=== PATIENT | male | born 1945 | race Caucasian/White ===

== ENCOUNTER 2017-07-19 10:03 | Observation (INO) | payer MEDICARE ==
[2017-07-19 11:10] LABS: Prothrombin Time 24.4 SEC (12.0-14.7)
[2017-07-19 11:11] LABS: PTT 56.3 SEC (22.9-36.1)
[2017-07-19 11:13] LABS: #Eosinphils 0.1 thou/uL (0.0-0.7); #Lymphocytes 0.9 thou/uL (1.20-3.40); #Monocytes 1.3 thou/uL (0.11-0.59); #Neutrophils 12.5 thou/uL (1.40-6.50); %Basophils 0.2 % (0.0-1.0); %Eosinophils 0.6 % (0.0-10.0); %Lymphocytes 6.1 % (21.0-51.0); %Monocytes 8.9 % (0.0-10.0); Hematocrit 27.6 % (42.0-52.0); Mean Platelet Volume 6.8 fL (7.4-10.4); Red Blood Cell (RBC) Count 2.84 mill/uL (4.70-6.10); White Blood Cell (WBC) Count 14.9 thou/uL (4.8-10.8)
[2017-07-19 11:22] LABS: Polychromasia MODERATE = 3-4 cells (100X) (0-2/hpf)
[2017-07-19 11:26] LABS: ALT (SGPT) 11 U/L (8-55); AST (SGOT) 12 U/L (5-34); Alkaline Phosphatase 45 U/L (40-150); Anion Gap 10 mmol/L (10-20); BUN (Urea Nitrogen) 17 mg/dL (8.4-25.7); Bilirubin, Total 0.7 mg/dL (0.2-1.2); Calc. Creatinine Clearance 0 mL/min (70-130); Carbon Dioxide 27 mmol/L (23-31); Chloride 101 mmol/L (98-107); Estimated GFR-MDRD 70; Globulin 2.7 g/dL (2.4-3.5); Iron 48 ug/dL (65-175); Protein, Total 6.4 g/dL (5.8-8.1)
[2017-07-19 12:51] LABS: Bilirubin Negative (Negative); Blood, Urine Negative (Negative); Glucose, Urine (Dipstick) Negative (Negative); Ketone, Urine Negative (Negative); Nitrite Negative (Negative); Protein, Urine (Dipstick) Negative (Neg-Trace); Urobilinogen 0.2 mg/dL (0.2-1.0)
[2017-07-19] MEDS ORDERED: Acetaminophen 500 MG TAB ONE (14:15)
--- NOTE | 2017-07-19 15:13 | RAD ---
RADIOGRAPH CHEST 1 VIEW: Date: 07-19-17 Time: 2:23 p.m. HISTORY: 71-year-old male with fever. COMPARISON: 02-12-14 FINDINGS: Again noted is the extensive pulmonary scarring at the right mid and lower lung zones, and chronic b lunting of the right lateral costophrenic angle, consistent with pleural thickening. The left subcla vian dual-lead pacemaker is again noted. The generator has been exchanged for a different type. Ster notomy wires are again noted. There is mild increased transverse diameter of the heart, apparently s lightly greater than on the previous study, but that could be due to positional differences. Promine nt interstitial markings in the left lower lung zone appears chronic. This is slightly greater than on the previous study. No pulmonary edema or pneumothorax. No consolidation. IMPRESSION: 1. Right sided pulmonary and pleural scarring. 2. No definite acute pulmonary findings. 3. Pacemaker. PHILIP POS: QUYEN
--- NOTE | 2017-07-19 15:15 | HP ---
PRIMARY CARE PHYSICIAN: Lisa Riley M.D. REASON FOR ADMISSION: Symptomatic anemia and fever. HISTORY OF PRESENT ILLNESS: A 71-year-old male who has mechanical aortic valve and chronic anticoagulation therapy with warfarin, who came to emergency room with complaint of weakness and dizziness. The patient reports that about a week ago from today, he was having black tarry stool everyday. He was having black tarry stool for about 4 days. This happened to him in the past as well and that is why he stopped taking warfarin for 3 days and his bleeding stopped. When his bleeding stopped and stool becoming normal color, at that time he started taking warfarin again. He was on warfarin for last 2-3 days. He was not having any ongoing black tarry stool, but he was feeling weak, tired, exhausted and that is why he came to emergency room for evaluation. Patient denies any orthopnea, PND. He does report some increased pitting edema in both lower extremities. He does report fatigue and palpitations on exertion. Patient's reports that day before night, he was having fever and temperature was 100.6 and today in the emergency room is also temperature 100.6. He was feeling warm for last 2-3 days. He denies any UTI symptoms. He does report cough with white sputum, but he denies any hemoptysis. He denies any constipation, diarrhea. He denies any abdominal pain. He denies any sick exposure or any recent vaccinations. REVIEW OF SYSTEMS: The following complete review of systems was negative, unless otherwise mentioned in the HPI or below: Constitutional: Weight loss or gain, ability to conduct usual activities. Skin: Rash, itching. Eyes: Double vision, pain. ENT/Mouth: Nose bleeding, neck stiffness, pain, tenderness. Cardiovascular: Palpitations, dyspnea on exertion, orthopnea. Respiratory: Shortness of breath, wheezing, cough, hemoptysis, fever or night sweats. Gastrointestinal: Poor appetite, abdominal pain, heartburn, nausea, vomiting, constipation, or diarrhea. Genitourinary: Urgency, frequency, dysuria, nocturia. Musculoskeletal: Pain, swelling. Neurologic/Psychiatric: Anxiety, depression. Allergy/Immunologic: Skin rash, bleeding tendency. Please see my HPI for pertinent positive and negative. All other review of systems reviewed and negative except as mentioned in the HPI. PAST MEDICAL HISTORY: History of aortic valve replacement; chronic anticoagulation with warfarin; history of GI bleed in the past that required several times endoscopy and colonoscopy which was unremarkable; hypertension; history of aortic stenosis, required aortic valve replacement in the past; coronary artery disease; and gastroesophageal reflux disease. PAST SURGICAL HISTORY: Mechanical aortic valve replacement by Dr. Rosenbaum, pacemaker, appendicectomy, tonsillectomy and several times upper and lower endoscopy. PAST PSYCHIATRIC HISTORY: Reviewed and negative. SOCIAL HISTORY: Patient is and lives at home with his . He is a former smoker. He quit smoking few years ago. He drinks alcohol socially. He drinks 1 beer every afternoon. He denies any other illicit drug abuse. FAMILY HISTORY: No strong family history of premature coronary artery disease, stroke or cancer. ALLERGIES: No known drug allergy. EMERGENCY ROOM COURSE: Patient is receiving 1 unit of PRBC as ordered by ER physician. CURRENT HOME MEDICATIONS: Coenzyme Q10 200 mg p.o. daily, ferrous sulfate 325 mg p.o. daily, metoprolol tartrate 12.5 mg twice daily, fish oil daily, nifedipine ER 30 mg p.o. daily, ramipril 10 mg twice daily, aspirin 81 mg p.o. daily, Tylenol #3 one or two tablets q.12 hourly p.r.n. PHYSICAL EXAMINATION: VITAL SIGNS: Currently, blood pressure 158/74, pulse 63, respiratory rate 20, temperature 98.1 and subsequently temperature 100.6, respiratory rate 18, saturation 98% on room air, weight 90.7 kilograms. GENERAL: Patient is currently alert, awake, appears weak. No obvious acute distress. HEAD: Normocephalic, atraumatic. EYES: Pupils round, reactive to light. Extraocular muscle intact. ENT: Oropharynx within normal limits. Pale mucous membranes. No oral lesions. No pharyngeal erythema, no exudates. NECK: Supple. Range of motion is normal. No meningeal signs of irritation. LUNGS: Clear to auscultation. Few coarse breath sounds noted. CARDIAC: S1, S2 regular. Mechanical heart sounds heard. ABDOMEN: Soft, bowel sounds present, nontender, and nondistended. No organomegaly, no mass, no suprapubic tenderness. BACK: Examination unremarkable. No CVA tenderness. EXTREMITIES: Upper extremity passive movements of all joints are normal. Lower extremity, bilateral lower extremity edema. NEUROLOGIC: Nonfocal examination. The patient moves all 4 limbs. Plantar bilateral flexor. PSYCHIATRIC: Normal affect. SIGNIFICANT LABORATORY DATA: 1. Urinalysis normal. BMP: Sodium 134, potassium 4.0, chloride 101, carbon dioxide 27, anion gap 10, BUN 17, creatinine 1.05, glucose 148, calcium 9.0. 2. LFT: AST 12, ALT 11, alkaline phosphatase 45, albumin 3.7. 3. INR 2.1. 4. CBC: WBC 14.9, hemoglobin 8.8, platelet 290. Stool occult blood negative. ASSESSMENT AND PLAN/IMPRESSION: 1. Symptomatic anemia. This patient's hemoglobin is currently 8.8. His previous hemoglobin was 13.4. This patient had melena about 4 days ago. At this point, he does not have any active bleeding and he does not have any hematochezia or melena. Currently, he is having symptoms of anemia because he lost blood 4 days ago with melena. The patient is still taking warfarin and he does not have any Hemoccult blood positive. This patient also had several upper and lower endoscopies by Dr. Gibson in the past and now as per Dr. Gibson , patient is planned for capsular endoscopy to find the source of bleeding. As this patient does not have any ongoing bleeding, no need of GI consultation and family member and patient is okay with that. They will make appointment with Dr. Gibson after discharge for capsule endoscopy to find out the source of bleeding. At this point, patient is receiving 1 unit of blood transfusion in the emergency room. We will repeat CBC tomorrow and we will continue with ferrous sulfate 325 mg p.o. b.i.d. The patient will benefit from outpatient referral to [facility] for periodic blood transfusion or iron infusion if needed. 2. Fever. Patient has leukocytosis, fever of 100.6 today and yesterday. The patient does not have any urinary tract infection symptoms. His urinalysis is normal. I will order chest x-ray to see any infiltration, I am suspecting viral etiology. We will repeat CBC tomorrow. 3. History of aortic valve replacement on chronic anticoagulation therapy with warfarin because patient has mechanical mitral valve and now patient does not have any ongoing bleeding. We will continue warfarin therapy. Currently, INR is therapeutic. 4. Hypertension. We will continue Procardia-XL 30 mg p.o. daily and metoprolol tartrate 12.5 mg twice daily and ramipril 10 mg p.o. b.i.d. 5. Bilateral lower extremity edema. I will check BNP and we will give him Lasix 40 mg IV b.i.d. 6. Deep venous thrombosis prophylaxis not needed because we are expecting discharge in 24 hours. The patient is already on warfarin therapy. 7. Gastrointestinal prophylaxis, Protonix 40 mg p.o. b.i.d. 8. Code status: The patient is FULL CODE. The patient's is surrogate decision maker. Disposition plan based on clinical course likely 24-48 hours. Plan of care discussed with the patient and family member at bedside. RAGHAV
[2017-07-19] MEDS ORDERED: Ondansetron ODT 4 MG TAB PO PRN (16:52)
[2017-07-19] MEDS ORDERED: diphenhydrAMINE HCl 25 MG CAP PO PRN (16:52)
[2017-07-19] MEDS ORDERED: Senokot 8.6 MG TAB PO PRN (16:52)
[2017-07-19] MEDS ORDERED: Loperamide HCl 2 MG CAP PO PRN (16:52)
[2017-07-19] MEDS ORDERED: Ondansetron HCl/PF 4 MG/2 ML Vial IVP PRN (16:52)
[2017-07-19] MEDS ORDERED: Zolpidem Tartrate 5 MG TAB PO PRN (16:52)
[2017-07-19] MEDS ORDERED: Sodium Chloride 0.65% Nasal 44 ML BOT EA NARE PRN (16:52)
[2017-07-19] MEDS ORDERED: HYDROcodone/Acetaminophen 5/325 mg Tablet PO PRN (16:52)
[2017-07-19] MEDS ORDERED: Milk Of Magnesia 30 ML UDCUP PO PRN (16:52)
[2017-07-19] MEDS ORDERED: Artificial Tears 18 DROP/0.9 ML EA EYE PRN (16:52)
[2017-07-19] MEDS ORDERED: Diabetic Tussin 200 MG/10 ML UDCUP PO PRN (16:52)
[2017-07-19] MEDS ORDERED: Chloraseptic Spray 180 ml Bottle PO PRN (16:52)
[2017-07-19] MEDS ORDERED: Nitroglycerin 0.4 MG TAB (25 Tab Bottle) SL PRN (16:52)
[2017-07-19] MEDS ORDERED: Eucerin (Mineral Oil/Petrolatum,White) 30 gm Jar TOP PRN (16:52)
[2017-07-19] MEDS ORDERED: Mag-Al 1200 mg/1200 mg/30 ML UDCUP PO PRN (16:52)
[2017-07-19] MEDS ORDERED: Warfarin Sodium 2.5 MG TAB PO SCH (17:00)
[2017-07-19 17:02] VITALS: BMI 32.1
[2017-07-19] MEDS ORDERED: Furosemide 40 MG/4 ML VIAL SLOW IVP SCH (17:45)
[2017-07-19] MEDS: Ferrous Sulfate 325 MG TAB PO SCH (18:01)
[2017-07-19] MEDS ORDERED: Acetaminophen 325 MG TAB PO PRN (18:19)
[2017-07-19] MEDS ORDERED: FLU VACC TS2017-18 (>65YR) 0.5 ML SYRINGE IM ONE (18:30)
[2017-07-19] MEDS: Ramipril 5 MG CAP PO SCH (21:47)
[2017-07-19] MEDS: Metoprolol Tartrate 25 MG TAB PO SCH (21:48)
[2017-07-20 05:52] LABS: #Basophils 0.1 thou/uL (0.0-0.2); #Eosinphils 0.3 thou/uL (0.0-0.7); #Lymphocytes 1.8 thou/uL (1.20-3.40); #Monocytes 1.6 thou/uL (0.11-0.59); %Basophils 0.6 % (0.0-1.0); %Eosinophils 1.9 % (0.0-10.0); %Lymphocytes 12.1 % (21.0-51.0); %Monocytes 10.7 % (0.0-10.0); Hematocrit 30.6 % (42.0-52.0); Mean Platelet Volume 6.8 fL (7.4-10.4); Red Blood Cell (RBC) Count 3.18 mill/uL (4.70-6.10); White Blood Cell (WBC) Count 14.8 thou/uL (4.8-10.8)
[2017-07-20 05:53] LABS: Prothrombin Time 22.3 SEC (12.0-14.7)
[2017-07-20] MEDS ORDERED: Furosemide 40 MG/4 ML VIAL SLOW IVP SCH (06:00)
[2017-07-20 06:03] LABS: Anion Gap 11 mmol/L (10-20); BUN (Urea Nitrogen) 14 mg/dL (8.4-25.7); Calc. Creatinine Clearance 90 mL/min (70-130); Calcium 8.7 mg/dL (7.8-10.44); Carbon Dioxide 27 mmol/L (23-31); Chloride 98 mmol/L (98-107); Estimated GFR-MDRD 73
[2017-07-20 08:14] VITALS: BP 126/76; TEMP 98.5
[2017-07-20] MEDS: Ferrous Sulfate 325 MG TAB PO SCH (08:14)
[2017-07-20] MEDS: Metoprolol Tartrate 25 MG TAB PO SCH (08:16)
[2017-07-20] MEDS: Ramipril 5 MG CAP PO SCH (08:16)
[2017-07-20] MEDS ORDERED: Fish Oil 1,000 MG CAP PO SCH (09:00)
[2017-07-20] MEDS ORDERED: NIFEdipine XL 30 MG TAB PO SCH (09:00)
[2017-07-20] MEDS ORDERED: Ubidecarenone 50 MG CAP PO SCH (09:00)
--- NOTE | 2017-07-20 10:36 | DIS ---
PRIMARY CARE PHYSICIAN: Dr. Riley DATE OF ADMISSION: 07/19/2017 DATE OF DISCHARGE: 07/20/2017 DISCHARGE DISPOSITION: Home. PRIMARY DISCHARGE DIAGNOSES: 1. Symptomatic anemia, status post 1 unit transfusion. 2. Leukocytosis and fever, unclear etiology. SECONDARY DISCHARGE DIAGNOSES: History of mechanical aortic valve replacement, chronic anticoagulat ion, hypertension, obesity. PRIMARY PROCEDURE/OPERATION: None. RADIOLOGICAL INVESTIGATION: Chest x-ray showed right basilar pleural scar, no acute process. SIGNIFICANT LABORATORY DATA: WBC 14.8, hemoglobin 9.7, platelets 314. INR 1.9, sodium 132, potassi um 4.2, BUN 14, creatinine 1.01, calcium 8.7. LFTs normal. BNP 598.3. Urinalysis normal. FOBT ne gative. DISCHARGE MEDICATIONS: The patient will resume home dose of warfarin 5 mg p.o. daily, aspirin 81 mg p.o. daily. Aspirin 81 mg p.o. daily, ferrous sulfate 325 mg p.o. b.i.d., fish oil 1000 mg p.o. da [place], Toprol XL 12.5 mg p.o. b.i.d., Procardia-XL 30 mg p.o. daily, Protonix 40 mg p.o. b.i.d., Ramip ril 10 mg p.o. b.i.d., multivitamin 1 tablet p.o. b.i.d., Omnicef 300 mg p.o. twice daily for 5 days . CONTRAINDICATIONS: None. CODE STATUS: Full code. INPATIENT CONSULTANTS: None. ALLERGIES: SULFA DRUGS. DISCHARGE PLAN: Post hospital, the patient is advised to follow up with Dr. Gibson and primary care physician. HOSPITAL COURSE: A 71-year-old male who had about 4 or 5 days ago melanotic stool. He had that epi sode for 2-3 days and that is why he stopped warfarin by himself and his melanotic stool improved a nd he resumed his warfarin. He was not having any further melanotic stool, but he was having symptoms of anemia with fatigue, we akness, dyspnea on exertion and that is why he came to the emergency room, his hemoglobin on admissi on 8.8, which was dropped from previous. We gave him 1 unit of blood transfusion and he had appropr iate increase in his hemoglobin 9.7. His stool for guaiac was negative. He already had several upp er and lower endoscopy in the past and he is only waiting for capsular endoscopy to complete his wor kup and this time we did not consult any line repairer tower because there was no ongoing bleeding an d we advised him to make appointment with a line repairer tower for capsule endoscopy. Another problem he was having his leukocytosis and fever a couple of times at home. We did a chest x-ray which showed pleural scarring without any acute process. Urinalysis was normal. There was no obvious clear cut source of infection, we presumably started Omnicef on discharge for 5 more days. The patient will continue his warfarin therapy. He was not having wheezing, but he was on room air . He reported that he was following customer service trainer and they did PFTs, nothing identified etiology fo und on him. We checked his BNP, he had some edema in his lower extremity and we started Lasix on di scharge as well. PHYSICAL EXAMINATION: The patient seen and examined at bedside today. VITAL SIGNS: Currently temperature 98.5, pulse 69, respiratory rate 16, saturation 96%, blood press ure 126/76. GENERAL: The patient is alert, awake, no acute distress. HEAD: Normocephalic, atraumatic. LUNGS: Clear. A few end-expiratory wheezing heard. CARDIAC: S1, S2 regular without any significant murmur, no prosthetic click heard. ABDOMEN: Soft and benign. EXTREMITIES: No edema. NEUROLOGIC: Nonfocal examination. The patient is stable for discharge today.
[2017-07-20] MEDS ORDERED: Warfarin Sodium 5 MG TAB PO SCH (17:00)
== END 2017-07-20 11:08 | disposition home or self-care (01) ==
LOC: ERS 10:03 → 2SW 13:26
PROVIDERS: ADMIT Internal Medicine; ATTEND Internal Medicine
DX: D64.9 Anemia, unspecified (principal); D72.829 Elevated white blood cell count, unspecified; R50.9 Fever, unspecified; I10 Essential (primary) hypertension; E66.9 Obesity, unspecified; I25.10 Atherosclerotic heart disease of native coronary artery without angina pectoris; K21.9 Gastro-esophageal reflux disease without esophagitis; R60.0 Localized edema; Z68.31 Body mass index [BMI] 31.0-31.9, adult; Z79.01 Long term (current) use of anticoagulants; Z79.82 Long term (current) use of aspirin; Z79.899 Other long term (current) drug therapy; Z95.2 Presence of prosthetic heart valve; Z90.49 Acquired absence of other specified parts of digestive tract; Z90.89 Acquired absence of other organs; Z98.890 Other specified postprocedural states; Z88.2 Allergy status to sulfonamides; Z87.891 Personal history of nicotine dependence
CPT/HCPCS: 36430; 71010; 80048; 80053; 81003; 82274; 83540; 83880; 85025 ×2; 85610 ×2; 85730; 86850; 86900; 86901; 86920; 94760; 96374; 96376; 99285; G0008; G0378; P9016; Q2036; 36415; 90471; 90682; J1940

== ENCOUNTER 2018-04-28 07:05 | Outpatient (CLI) | payer MEDICARE, OTHER ==
[2018-04-28 08:31] LABS: Albumin 4.2 g/dL (3.4-4.8); Anion Gap 11 mmol/L (10-20); BUN (Urea Nitrogen) 11 mg/dL (8.4-25.7); BUN/Creatinine Ratio 11.83; Calc. Creatinine Clearance 0 mL/min (70-130); Calcium 9.6 mg/dL (7.8-10.44); Carbon Dioxide 25 mmol/L (23-31); Chloride 104 mmol/L (98-107); Estimated GFR-MDRD 80; Glucose 111 mg/dL (80-115); Phosphorus 2.7 mg/dL (2.3-4.7); Potassium 4.3 mmol/L (3.5-5.1); Sodium 136 mmol/L (136-145)
--- NOTE | 2018-04-28 11:06 | CT ---
CT ABDOMEN AND PELVIS WITH AND WITHOUT CONTRAST CT ENTEROGRAPHY: Date: 04/28/18 CLINICAL HISTORY: Anemia due to blood loss. FINDINGS: There are lipid-rich adrenal adenomas present on the right. There is dystrophic calcification of the right adrenal glands, as well. Several cysts are seen within each kidney. There are small hypodensiti es of the hepatic parenchyma, too small to further characterize. No significant pathology of the panc reas or spleen. Colonic diverticula are present. The small bowel is unremarkable, without evidence of abnormal dilata tion, or inflammation. There is no evidence of ascites or free air. Scattered vascular calcification is present. There is no adenopathy. Patchy opacification at the lung bases, right greater than left, indicates atelectasis. Pleural based calcification is present. There is no acute osseous abnormality. IMPRESSION: 1. No acute small bowel pathology. 2. Colonic diverticulosis. 3. Additional details are described above. POS: QUYEN
[2018-04-28] MEDS ORDERED: Iopamidol 370 76% 100 ML VIAL ONE (13:28)
== END 2018-04-28 07:06 | disposition home or self-care (01) ==
LOC: CT 07:05
PROVIDERS: ATTEND Internal Medicine Gastroenterology
DX: D50.0 Iron deficiency anemia secondary to blood loss (chronic) (principal); K57.30 Diverticulosis of large intestine without perforation or abscess without bleeding; D35.01 Benign neoplasm of right adrenal gland; E27.49 Other adrenocortical insufficiency; N28.1 Cyst of kidney, acquired; J98.11 Atelectasis; R91.8 Other nonspecific abnormal finding of lung field; Z79.01 Long term (current) use of anticoagulants; Z95.2 Presence of prosthetic heart valve
CPT/HCPCS: 74178; 80069

== ENCOUNTER 2018-05-01 08:20 | Day surgery (SDC) | payer MEDICARE, OTHER ==
[2018-04-28 14:07] VITALS: BMI 197.0
[2018-05-01 09:09] LABS: Hemoglobin 12.3 g/dL (14.0-18.0)
[2018-05-01 09:13] LABS: INR-International Normal Ratio 3.1; Prothrombin Time 31.8 SEC (12.0-14.7)
[2018-05-01] MEDS ORDERED: Lidocaine 1% PF 5 ML VIAL ONE (11:10)
[2018-05-01] MEDS ORDERED: PROPOFOL 200 MG/20 ML VIAL ONE (11:10)
--- NOTE | 2018-05-01 13:47 | OP ---
DATE OF PROCEDURE: 05/01/2018 SURGEON: Moe Gibson M.D. PREOPERATIVE DIAGNOSES: 1. Iron deficiency anemia. 2. 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 3. Chronic Coumadin use for aortic valve replacement. 4. Capsule endoscopy 2 weeks ago which revealed active bleeding in the small bowel of unclear etiolo gy. A CT enterography showed no evidence of masses or small bowel lesions. POSTOPERATIVE DIAGNOSES: 1. EGD and enteroscopy to the proximal jejunum was normal with no bleeding sites identified. No AVM s were seen. There was just yellow bile in the small intestine. The stomach on close evaluation had no AVMs or bleeding sites and the esophagus and GE junction were normal in forward and retroflexed v iews. 2. Colonoscopy revealed an area of ulceration and submucosal edema and hemorrhage at the hepatic fle xure suggestive of ischemic colitis. Biopsies were taken. After the procedure in talking with the p atient he notes that after his CT enterography he had a lot of abdominal cramping and I suspect that with the Gastrografin he probably had diarrhea with that and possibly due to obstipation from iron hodge pplementations had quite a bit of spasm in the hepatic flexure region and this was not the primary so urce of bleeding. 3. Hemoglobin is now up to 12.3, from 8 and 9. 4. INR today was 3.1. He is on his Coumadin which was not held for this procedure. RECOMMENDATIONS: 1. Resume Coumadin tomorrow. 2. Resume iron tomorrow. 3. Follow up in the office, appointment made for 05/17/2018. We will recheck hemoglobin at that myra e. If the patient has ongoing signs of blood loss will refer to [place] for a deep enteroscopy via [facility], [place] or double balloon technique. Otherwise, I have asked him to avoid all NSAIDs except for the baby aspirin. It is possible he was taking some other NSAIDs and was unaware, his states they were take over the counter medicine. She is going to check those and call me with whatever that medicine was later today. PROCEDURE: EGD, enteroscopy and colonoscopy. PROCEDURE IN DETAIL: After the patient was informed of risks, benefits, possible complications of en doscopy including perforation, bleeding, reaction to medication, aspiration, indications for the proc edure, that is positive capsule endoscopy with GI bleeding and history of AVMs in the colon, he was b rought to endoscopy suite where he was sedated in a gradual fashion. Once he was comfortable, a bite block was placed in the incisural orifice. The endoscope was advanced through the esophagus, stomac h and to the second and third portion of the duodenum. The stomach and esophagus were normal, forwar d and retroflexed views in the stomach were normal. The duodenal bulb was entered and found to be no rmal. The scope was slowly advanced carefully to the small bowel and we were able to get down pretty far into the jejunum past the ligament of Treitz. No AVMs or bleeding sites were seen. Some ____ a nd some clear bubbles, no mucosal lesions were identified, no old blood was seen, it was just bilious material in the lumen. The scope was slowly removed with good visualization of the mucosa. Surpris ingly, there was very little mucosal bleeding or trauma in light of the INR being 3. The scope was r emoved. The patient was turned in the room and a rectal exam was performed. The endoscope was advanced throu gh the anal canal to the colon to the cecum. The terminal ileum was intubated and found to be normal . The prep was very good. There were no AVMs or arteriovenous malformations seen in the colon. The re was area of ulceration and antimesenteric ulceration and edema in the area of the hepatic flexure. This is consistent with ischemic colitis in its pattern. Biopsies were taken and submitted to path ology. The scope was then slowly removed through the remainder of the colon. No other lesions seen. The scope was retroflexed. No lesions were seen. Then returned to forward position. The colon wa s desufflated. The scope was removed.
== END 2018-05-01 12:50 | disposition home or self-care (01) ==
LOC: SDC 08:20
PROVIDERS: ATTEND Internal Medicine Gastroenterology
PROC: 0DJ08ZZ Inspection of Upper Intestinal Tract, Via Natural or Artificial Opening Endoscopic (ICD-10-PCS; principal; 2018-05-01)
PROC: 0DBL8ZX Excision of Transverse Colon, Via Natural or Artificial Opening Endoscopic, Diagnostic (ICD-10-PCS; 2018-05-01)
DX: K63.3 Ulcer of intestine (principal); K92.2 Gastrointestinal hemorrhage, unspecified; D50.0 Iron deficiency anemia secondary to blood loss (chronic); M19.90 Unspecified osteoarthritis, unspecified site; Z87.891 Personal history of nicotine dependence; Z79.01 Long term (current) use of anticoagulants; Z79.82 Long term (current) use of aspirin; Z79.899 Other long term (current) drug therapy; Z88.2 Allergy status to sulfonamides; Z95.2 Presence of prosthetic heart valve; Z95.0 Presence of cardiac pacemaker; Z98.890 Other specified postprocedural states
CPT/HCPCS: 85014; 85018; 85610; 88305

== ENCOUNTER 2019-07-30 06:31 | Outpatient (CLI) | payer MEDICARE ==
[2019-07-30 10:49] LABS: #Eosinphils 0.3 thou/uL (0.0-0.7); #Lymphocytes 1.2 thou/uL (1.20-3.40); #Monocytes 0.9 thou/uL (0.11-0.59); #Neutrophils 5.3 thou/uL (1.40-6.50); %Basophils 0.6 % (0.0-1.0); %Eosinophils 3.5 % (0.0-10.0); %Lymphocytes 15.3 % (21.0-51.0); %Monocytes 11.2 % (0.0-10.0); %Neutrophils 69.5 % (42.0-75.0); Hemoglobin 13.1 g/dL (14.0-18.0); Mean Corpuscular HGB CONC 33.8 g/dL (32.0-36.0); Mean Corpuscular Hemoglobin 32.9 pg (27.0-31.0); Mean Corpuscular Volume 97.3 fL (78.0-98.0); Mean Platelet Volume 7.7 fL (7.4-10.4); Platelet Count 229 thou/uL (130-400); RBC Distribution Width 12.4 % (11.5-14.5); White Blood Cell (WBC) Count 7.6 thou/uL (4.8-10.8)
[2019-07-30 11:07] LABS: Anion Gap 16 mmol/L (10-20); BUN (Urea Nitrogen) 16 mg/dL (8.4-25.7); Calc. Creatinine Clearance 0 mL/min (70-130); Calcium 9.8 mg/dL (7.8-10.44); Carbon Dioxide 23 mmol/L (23-31); Chloride 101 mmol/L (98-107); Estimated GFR-MDRD 79; Glucose 99 mg/dL (83-110); Potassium 4.8 mmol/L (3.5-5.1); Sodium 135 mmol/L (136-145)
== END 2019-07-30 06:32 | disposition home or self-care (01) ==
LOC: LABBT 06:31
PROVIDERS: ATTEND Orthopaedic Surgery
DX: Z01.818 Encounter for other preprocedural examination (principal); G56.02 Carpal tunnel syndrome, left upper limb
CPT/HCPCS: 80048; 85025; 93005; 93010

== ENCOUNTER 2019-08-01 05:52 | Day surgery (SDC) | payer MEDICARE ==
[2019-07-30 09:25] VITALS: BMI 28.8
--- NOTE | 2019-07-31 10:48 | HP ---
HISTORY OF PRESENT ILLNESS: The patient is a 73-year-old male with several-year history of pain and tingling in both hands, left greater than right. He has had progressive symptoms despite rest, restriction of activities, and use of night splints. Pain is interfering with day-to-day activities. PAST MEDICAL HISTORY: The patient has history of heart valve replacement by Dr. Rosenbaum in 1999. He has been on warfarin indefinitely. He also has high blood pressure, high cholesterol, thyroid disease, history of hepatitis B and hepatitis C, chronic back pain and rheumatoid arthritis, and also has a pacemaker. He has been seen and cleared by Dr. Romero for surgery. He has stopped warfarin 5 days preoperatively, has been bridged with Lovenox with his last dose on 07/31/2019. CURRENT MEDICATIONS: Include: 1. Metoprolol. 2. Ramipril. 3. Warfarin. 4. Omeprazole. 5. Aspirin. 6. Nifedipine. 7. Iron. 8. Bevespi Aerosphere inhaler. 9. Tylenol No.3. ALLERGIES: HE IS ALLERGIC TO SULFA. FAMILY HISTORY: Unremarkable. SOCIAL HISTORY: Unremarkable. REVIEW OF SYSTEMS: Unremarkable. PHYSICAL EXAMINATION: GENERAL: Reveals a healthy elderly male. HEENT: Unremarkable. NECK: Supple. CHEST: Clear. HEART: Regular rate and rhythm. ABDOMEN: Soft and nontender. RECTAL: Deferred. GENITAL: Deferred. EXTREMITIES: Pertinent findings related to his wrist, on the left, there is some questionable thenar atrophy. There are some arthritic changes in his finger joints bilaterally. There is full range of motion bilaterally. Motor exam appears to be intact bilaterally. There is a positive Tinel sign and negative Phalen test bilaterally, left greater than right. There is decreased sensation in the median nerve distribution on the left. No definite sensory deficit on the right. There is good capillary refill. There is no crepitus or instability of either wrist. Nerve conduction studies by Dr. Betts reveal [id number] carpal tunnel syndrome on the left and [id number] on the right. IMPRESSION: 1. Bilateral carpal tunnel syndrome, left symptomatic more than right. 2. History of heart valve replacement, on warfarin. 3. History of hypertension. 4. History of hepatitis. PLAN: Endoscopic possible open left carpal tunnel release. He will probably require staged right carpal tunnel release when he has recovered from the left. The nature of the surgery, length of recovery, and potential complications such as infection, loss of motion, incomplete relief, nerve injury, recurrence, need for additional treatment and repeat surgery were discussed in detail. Job ID: [id number]
[2019-08-01] MEDS ORDERED: Lidocaine 1% (PF) 30 ML VIAL ONE (06:49)
[2019-08-01] MEDS ORDERED: Fentanyl 100 MCG/2 ML VIAL ONE (07:12)
[2019-08-01 07:26] LABS: INR-International Normal Ratio 1.1; Prothrombin Time 14.2 SEC (12.0-14.7)
[2019-08-01] MEDS ORDERED: HYDROcodone/Acetaminophen 5/325 mg Tablet ONE (09:00)
--- NOTE | 2019-08-01 11:35 | OP ---
DATE OF PROCEDURE: 08/01/2019 ANESTHESIA: General. PREOPERATIVE DIAGNOSIS: Left carpal tunnel syndrome. POSTOPERATIVE DIAGNOSIS: Left carpal tunnel syndrome. PROCEDURE PERFORMED: Left endoscopic carpal tunnel release. DESCRIPTION OF PROCEDURE: After satisfactory anesthesia was induced in supine position, the patient was prepped and draped in routine manner. The left arm was elevated and exsanguinated with an Esmarch bandage and the tourniquet inflated to 250 mmHg. A 2 cm transverse incision was made in the proximal wrist flexion crease, carried down through the subcutaneous tissues and bleeding points controlled with Bovie cautery. Using sharp and blunt dissection, a distally based flap at the deep forearm fascia was developed and retracted distally. Palmaris longus tendon was retracted radially. Proximal edge of the deep forearm fascia was split under direct visualization with small scissors to make sure there was no proximal impingement of the median nerve. Synovial elevator was introduced beneath the transverse carpal ligament and the synovium cleaned from the under surface. Carpal tunnel dilators were inserted. The [employer] endoscopic carpal tunnel system was introduced beneath the transverse carpal ligament in-line with the ring finger. The distal edge of the ligament was easily identified and divided in a distal to proximal direction by pulling the trigger of the assembly and engaging the knife and withdrawing the scope proximally. This was done in several stages to make sure there was complete division of the transverse carpal ligament, which was documented with video printer. After withdrawing the scope, a carpal tunnel dilator could be inserted into the carpal tunnel and there was markedly improved passage with subcutaneous position of the instrument. The scope was reintroduced into the carpal tunnel. There was wide separation of the 2 leaves of the transverse carpal ligament. The tourniquet was released after 4 minutes. There was no excessive bleeding and the scope was withdrawn. The wound was thoroughly irrigated and then closed with running subcuticular 3-0 nylon. Sterile dressing was applied. The patient immobilized in a Velcro wrist splint. He was awakened and taken to recovery room in stable condition. There were no apparent intraoperative complications. The estimated blood loss was negligible. The patient will be discharged home in satisfactory condition, instructed on ice elevation, and given written wound care instructions. He was given a prescription for [place] 5 for pain, 15 tablets. He will be rechecked in my office in approximately 2 weeks or sooner if any problems prior to that time. Job ID: [id number]
== END 2019-08-01 09:30 | disposition home or self-care (01) ==
LOC: SDC 05:52
PROVIDERS: ATTEND Orthopaedic Surgery
PROC: 01N54ZZ Release Median Nerve, Percutaneous Endoscopic Approach (ICD-10-PCS; principal; 2019-08-01)
DX: G56.03 Carpal tunnel syndrome, bilateral upper limbs (principal); J44.9 Chronic obstructive pulmonary disease, unspecified; M19.90 Unspecified osteoarthritis, unspecified site; I10 Essential (primary) hypertension; E78.00 Pure hypercholesterolemia, unspecified; E07.9 Disorder of thyroid, unspecified; G89.29 Other chronic pain; M54.9 Dorsalgia, unspecified; M06.9 Rheumatoid arthritis, unspecified; Z87.891 Personal history of nicotine dependence; Z79.01 Long term (current) use of anticoagulants; Z79.82 Long term (current) use of aspirin; Z79.899 Other long term (current) drug therapy; Z88.2 Allergy status to sulfonamides; Z95.0 Presence of cardiac pacemaker; Z95.3 Presence of xenogenic heart valve
CPT/HCPCS: 85610; J0690; J2001; J3010

== ENCOUNTER 2019-11-22 21:28 | Inpatient (IN) | payer MEDICARE ==
[~2019-11-22 21:28] MED LIST: Iopamidol-370 76% 500 ML 1 ML ONE
[2019-11-22 22:27] LABS: Hemoglobin 6.5 g/dL (14.0-18.0); Mean Corpuscular HGB CONC 33.5 g/dL (32.0-36.0); Mean Corpuscular Hemoglobin 32.3 pg (27.0-31.0); Mean Corpuscular Volume 96.2 fL (78.0-98.0); RBC Distribution Width 19.4 % (11.5-14.5); Red Blood Cell (RBC) Count 2.02 mill/uL (4.70-6.10)
--- NOTE | 2019-11-22 22:27 | RAD ---
Chest AP view INDICATION: Abdominal pain with recurrent GI bleeds COMPARISON: PA and lateral of the chest dated July 26, 2018 FINDINGS: Lungs: Emphysematous change and scarring within the right lung base is stable. Cardiac silhouette: Mild cardiomegaly, post-CABG change and dual-lead pacemaker are stable. Pulmonary vasculature: Normal Pleural spaces: Pleural thickening involving the right hemithorax is stable. Upper abdomen: No abnormality seen. Osseous structures: No acute osseous abnormality. Additional findings: None. IMPRESSION: No acute cardiopulmonary abnormality. Mild cardiomegaly without evidence of cardiac decompensation. S table chronic lung changes.
[2019-11-22 22:29] LABS: INR-International Normal Ratio 1.8; Prothrombin Time 20.9 SEC (12.0-14.7)
[2019-11-22 22:40] LABS: Band 8 % (5-11); Eosinophils 2 % (0-10); Lymphocytes 11 % (21-51); MDiff Complete? YES; Mean Platelet Volume 7.4 fL (7.4-10.4); Monocytes 4 % (0-10); Myelocyte 1 % (0-0); Neutrophil 73 % (42-75); Nucleated RBC 3 % (0); Platelet Count 186 thou/uL (130-400); White Blood Cell (WBC) Count 13.9 thou/uL (4.8-10.8)
[2019-11-22 22:45] LABS: Anion Gap 13 mmol/L (10-20); BUN (Urea Nitrogen) 44 mg/dL (8.4-25.7); Calc. Creatinine Clearance 0 mL/min (70-130); Carbon Dioxide 25 mmol/L (23-31); Chloride 103 mmol/L (98-107); Estimated GFR-MDRD 63; Potassium 4.9 mmol/L (3.5-5.1); Sodium 136 mmol/L (136-145)
[2019-11-22 22:46] LABS: ALT (SGPT) 13 U/L (8-55); AST (SGOT) 17 U/L (5-34); Albumin 3.4 g/dL (3.4-4.8); Alkaline Phosphatase 47 U/L (40-110); Bilirubin, Total 0.3 mg/dL (0.2-1.2); Calcium 8.5 mg/dL (7.8-10.44); Glucose 106 mg/dL (83-110); Protein, Total 5.4 g/dL (5.8-8.1)
[2019-11-22] MEDS ORDERED: Pantoprazole 40 MG VIAL ONE (23:08)
--- NOTE | 2019-11-22 23:25 | CT ---
CT OF THE ABDOMEN AND PELVIS WITH IV CONTRAST INDICATION: 74-year-old male with history of warfarin therapy with complaints of black tarry stools f or the last 3-4 days. COMPARISON: CT enterography protocol dated April 28, 2018. FINDINGS: ABDOMEN: Lung bases: There are stable pleural-based calcifications involving both lower hemithoraces. Liver: There are stable hepatic cysts and calcified granuloma Gallbladder: Decompressed Pancreas: Normal. Adrenal glands: Stable right adrenal adenomas. Left adrenal gland is normal-appearing. Spleen: Normal. Kidneys and ureters: Stable bilateral renal cysts Vasculature: There are mild vascular calcifications seen involving the visualized vasculature. Lymph nodes:No lymphadenopathy. Free fluid in abdomen:No free fluid is evident. PELVIS: Small and large bowel: There are scattered colonic diverticulosis without evidence of active divertic ulitis. Small bowel is of normal caliber. Appendix:Normal Bladder: Normal. Rectal and perirectal soft tissues:Normal. Reproductive structures: Normal. Free fluid in pelvis: No free fluid is evident. Lymphadenopathy pelvis: No lymphadenopathy is evident. Osseous structures: No acute osseous abnormality. No destructive osteolytic or osteoblastic lesion i s identified. There is scattered degenerative and osteoarthritic changes. Soft tissues:Small fat-containing umbilicus hernia is stable. IMPRESSION: 1. No acute abnormality.
[2019-11-23] MEDS ORDERED: Acetaminophen 325 MG TAB PO PRN ×2 (00:46→01:38)
[2019-11-23] MEDS ORDERED: HYDROcodone/Acetaminophen 5/325 mg Tablet PO PRN ×2 (01:38)
[2019-11-23] MEDS ORDERED: Ondansetron PF 4 MG/2 ML Vial IVP PRN (01:38)
[2019-11-23] MEDS ORDERED: Ondansetron ODT 4 MG TAB SL PRN (01:38)
--- NOTE | 2019-11-23 01:52 | HP ---
CHIEF COMPLAINT: GI bleed. HISTORY OF PRESENT ILLNESS: This patient is a 74-year-old male with a history of multiple and recurrent GI bleeds. The patient has been followed by Dr. Gibson. He has had numerous endoscopies and other workup, sounds like the last round of thinking was that he may need to go to [place] for a better small-bowel evaluation. He reports that he did have a capsule endoscopy. However, he developed bleeding during the actual study itself and therefore, there was nothing that could easily be visualized on the endoscopy. The patient reported that 4 to 5 days ago, he started having some melena, which he says he knows well. He was having multiple bowel movements a day for several days, but then started diminishing down to about 1 per day. He described it as being "a little constipated." He said that the bowel movements were black in nature. He says that several days ago, he believes it was Tuesday that he was getting up out of a chair, became lightheaded and fell down and developed a large hematoma over his left flank area. He denies any abdominal pain, nausea, vomiting, chest pain or palpitations. The patient reports that when he started seeing his bowel movements change, realizing that these were likely representing a GI bleed, he discontinued his warfarin on his own as he has done in the past with GI bleeds. He states that he is fully aware that there is risk associated with that that could lead to a stroke from his prosthetic aortic valve. REVIEW OF SYSTEMS: All other systems reviewed. All pertinent positives and negatives noted in the history of present illness. PAST MEDICAL HISTORY: Had a prosthetic mechanical aortic valve placed in 1999. He is on chronic anticoagulation with warfarin for that. History of multiple recurrent GI bleeds, hypertension, gastroesophageal reflux. He has osteoarthritis. Of note, his past records indicated hepatitis B and C. He states he does not have that. It also indicates he has rheumatoid arthritis, but he states it is simply osteoarthritis and he also has a history of coronary artery disease documented, but the patient states he did not have any occlusive disease at the time of his valve replacement. PAST SURGICAL HISTORY: Appendectomy, tonsillectomy, carpal tunnel release, mechanical aortic valve replacement in 1999 and it appears he has had some GI AVMs cauterized previously as well as part of his prior endoscopies. FAMILY HISTORY: Mother of Parkinson disease. Father in the [place] Explosion when he was a baby. SOCIAL HISTORY: The patient smoked until 2004. States he has always drank a little bit of beer, but has been making moonshine and was drinking the moonshine when the GI bleeding started and he stated that he might have been "overdoing it." He has decided to stop that now. He is , lives at home with his . He is a full code and his would be his surrogate decision maker should that become necessary. ALLERGIES: SULFA. CURRENT MEDICATIONS: 1. CoQ10 200 mg daily. 2. Ferrous sulfate 325 daily. 3. Metoprolol 25 mg 1/2 tablet p.o. b.i.d. 4. [place]-3 fatty acids 1000 mg daily. 5. Nifedipine 30 mg daily. 6. Ramipril 10 mg b.i.d. 7. Aspirin 81 mg daily. 8. Warfarin 2.5 mg Tuesday, , Tuesday and 5 mg Tuesday, Tuesday, Tuesday, Tuesday. PHYSICAL EXAMINATION: VITAL SIGNS: Blood pressure 94/63, pulse 71, respirations 22, O2 saturations 98% on room air. GENERAL APPEARANCE: Age-appropriate male. He is in no distress. He is awake and alert, pleasant, cooperative. HEENT: PERRL. No OP lesions. NECK: Supple and symmetric. HEART: Regular rate and rhythm. LUNGS: Clear bilaterally with good chest wall expansion and air exchange. ABDOMEN: Soft, nontender, and nondistended. Positive bowel sounds. No masses. No organomegaly. EXTREMITIES: No cyanosis or clubbing. He has trace edema in the lower extremities. SKIN: There is a large hematoma over the left lateral abdomen without much mass effect to it and it is completely nontender. PSYCHIATRIC: Normal affect and behavior. NEUROLOGIC: Cognitively intact. Normal cranial nerve function. No focal deficits. LABORATORY DATA: White count 13.9, hemoglobin 6.5, platelets 186. INR is 1.8, PTT is 30. Sodium 136, potassium 4.9, chloride 103, CO2 of 25, BUN 44, creatinine 1.15, glucose 106, lactic acid 1.4, calcium 8.5, AST 17, ALT 13, alkaline phosphatase 47, albumin is 3.4. Stool for occult blood positive. IMAGING STUDIES: Chest x-ray shows some stable chronic changes. CT abdomen and pelvis negative. IMPRESSION AND PLAN: 1. Gastrointestinal bleed in a patient with a history of recurrent gastrointestinal bleeds, etiology of which has been elusive. He has a significant acute blood loss anemia as well. We will go ahead and admit him to the hospital, start him on some blood transfusions and IV PPI. We will consult GI. He still has some anticoagulation effect from the warfarin. I am going to hold off an any additional anticoagulation for now until GI has opportunity to see him, but we will likely need to go back on anticoagulation in the morning pending their evaluation. I did discuss the options with the patient. He is amenable to that plan. 2. Acute blood loss anemia. Transfusing 2 units and placing the patient in the IMCU. 3. Hypertension. The patient's blood pressure is currently in the 90 systolic. Given the anemia and gastrointestinal bleed, we will only give him his low-dose beta blockade and hold his other medications for now. 4. History of mechanical aortic valve replacement in 1999. We will again not initiate any further aggressive anticoagulation in light of his gastrointestinal bleed. Job ID: [id number]
[2019-11-23 02:02] VITALS: BMI 29.6
[2019-11-23] MEDS: Sodium Chloride 0.9% 1,000 ML IV SCH ×2 (02:55→14:39)
[2019-11-23 04:10] LABS: ALT (SGPT) 13 U/L (8-55); AST (SGOT) 16 U/L (5-34); Albumin 3.1 g/dL (3.4-4.8); Alkaline Phosphatase 40 U/L (40-110); Anion Gap 12 mmol/L (10-20); BUN (Urea Nitrogen) 38 mg/dL (8.4-25.7); Bilirubin, Total 0.5 mg/dL (0.2-1.2); Calc. Creatinine Clearance 94 mL/min (70-130); Calcium 7.9 mg/dL (7.8-10.44); Carbon Dioxide 21 mmol/L (23-31); Chloride 106 mmol/L (98-107); Estimated GFR-MDRD 84; Globulin 1.8 g/dL (2.4-3.5); Glucose 109 mg/dL (83-110); Potassium 4.2 mmol/L (3.5-5.1); Protein, Total 4.9 g/dL (5.8-8.1); Sodium 135 mmol/L (136-145)
[2019-11-23 05:29] LABS: Band 15 % (5-11); Hemoglobin 7.1 g/dL (14.0-18.0); Lymphocytes 15 % (21-51); MDiff Complete? YES; Mean Corpuscular Hemoglobin 32.3 pg (27.0-31.0); Mean Corpuscular Volume 94.8 fL (78.0-98.0); Mean Platelet Volume 7.6 fL (7.4-10.4); Monocytes 7 % (0-10); Neutrophil 63 % (42-75); Platelet Count 172 thou/uL (130-400); RBC Distribution Width 18.2 % (11.5-14.5); Red Blood Cell (RBC) Count 2.19 mill/uL (4.70-6.10); White Blood Cell (WBC) Count 13.3 thou/uL (4.8-10.8)
[2019-11-23] MEDS: Pantoprazole 80 MG, Admixture Fee 1 EACH in Sodium Chloride 0.9% 100 ML IVPB SCH (08:20)
[2019-11-23] MEDS: Metoprolol Tartrate 25 MG TAB PO SCH ×2 (08:20→21:06)
--- NOTE | 2019-11-23 10:21 | PDOC.HOSPP ---
- Subjective Encounter Date: 11/23/19 Encounter Time: 10:20 Subjective: Mr. Hardy was seen today in follow-up of GI bleed. He says he feels better after the transfusion. No complaints, and he has not noted any further bleeding. - Objective Vital Signs & Weight: Vital Signs (12 hours) Temp Pulse Ox 11/23/19 07:46 97 11/23/19 05:00 98.3 F 11/23/19 04:41 99.0 F 100 11/23/19 03:13 100 11/23/19 01:35 99.9 F H Weight Weight 194 lb 12.8 oz Most Recent Monitor Data Heart Rate from ECG 80 NIBP 114/65 NIBP BP-Mean 81 Respiration from ECG 36 SpO2 100 I&O: 11/22/19 11/23/19 11/24/19 06:59 06:59 06:59 Intake Total 633.8 325 Output Total 855 Balance -221.2 325 Result Diagrams: 11/23/19 03:25 11/23/19 03:25 Hospitalist ROS - Medication Medications: Active Medications Generic Name Dose Route Start Last Admin Trade Name Freq PRN Reason Stop Dose Admin Pantoprazole Sodium 80 mg/ 100 mls @ 10 mls/hr 11/22/19 23:15 11/23/19 08:20 Miscellaneous Medication 1 IVPB 100 mls each/ Sodium Chloride INF ELLE Administration Sodium Chloride 1,000 mls @ 75 mls/hr 11/23/19 01:00 11/23/19 02:55 Normal Saline 0.9% IV 1,000 mls .[id number] ELLE Administration Metoprolol Tartrate 12.5 mg 11/23/19 09:00 11/23/19 08:20 Lopressor PO 12.5 mg BID ELLE Administration - Exam Eye: PERRL Heart: RRR, no murmur, no gallops, no rubs, normal peripheral pulses Respiratory: CTAB, no wheezes, no rales, no ronchi, normal chest expansion, no tachypnea, normal percussion Gastrointestinal: soft, non-tender, non-distended, normal bowel sounds, no palpable masses, no hepatomegaly Extremities: no cyanosis, no edema Hosp A/P (1) GI bleed Code(s): K92.2 - GASTROINTESTINAL HEMORRHAGE, UNSPECIFIED Status: Acute (2) Chronic anticoagulation Code(s): Z79.01 - [facility] (CURRENT) USE OF ANTICOAGULANTS Status: Chronic (3) Hypertension Code(s): I10 - ESSENTIAL (PRIMARY) HYPERTENSION Status: Chronic (4) Acute blood loss anemia Code(s): D62 - ACUTE POSTHEMORRHAGIC ANEMIA Status: Acute - Plan * GI bleed with acute blood loss anemia- he feels better after transfusion * Awaiting GI input * Continue Protonix drip * HTN- blood pressure is stable * Hold anticoagulation for now * Continue to monitor his H&H and transfuse as necessary
--- NOTE | 2019-11-23 22:08 | CON ---
DATE OF CONSULTATION: 11/23/2019 REQUESTING PHYSICIAN: Dr. Gomez. REASON FOR CONSULTATION: GI bleeding. HISTORY OF PRESENT ILLNESS: Kun Hardy is a very pleasant 74-year-old man previously seen by my colleague, Dr. Moe Gibson. 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 Back in 2012, he underwent EGD and colonoscopy, and had AVMs cauterized in the stomach as well as the right colon. He had extensive evaluation in mid 2018 as well. He had a capsule endoscopy which demonstrated active small bowel bleeding 1 hour into the study, suspected to be from an AVM, with no mass visualized at that time. Dr. Gibson subsequently took him for EGD with push enteroscopy and colonoscopy. The upper exam was negative. The colonoscopy showed some focal ischemia around the hepatic flexure, but this was not thought to represent a source of his bleeding. Notably, the patient had an aortic valve replacement with mechanical valve back in 1999, and has been on chronic anticoagulation with warfarin. He reports that he has been drinking more hard liquor recently. About 5 days ago, he had a syncopal episode and subsequently started passing black stools. This was initially multiple stools per day, but for the past several days, it has just been one dark bowel movement per day. There has been no significant abdominal pain with this. No nausea. He presented for evaluation and hemoglobin was found to be 6.5. He has received 2 units of RBC transfusion and is currently feeling better. Hemoglobin is just 7.1. BUN is elevated out of proportion to creatinine with BUN 38 and creatinine of 0.89. The patient has remained hemodynamically stable with no other complaints. REVIEW OF SYSTEMS: Full review of systems including constitutional, head, eyes, ears, nose, throat, GI, , cardiovascular, respiratory, musculoskeletal, neurologic systems is negative except as noted in the HPI. PAST MEDICAL HISTORY: 1. Mechanical aortic valve replacement in 1999, on a chronic anticoagulation since then. 2. 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 3. Hypertension. 4. GERD. 5. Osteoarthritis. 6. Pacemaker placement. 7. Appendectomy. 8. Tonsillectomy. 9. Carpal tunnel release. FAMILY HISTORY: Mother of Parkinson disease. SOCIAL HISTORY: The patient smoked until 2004. Recently, he has been drinking moonshine and hard liquor. He is and lives at home with his . ALLERGIES: SULFA. OUTPATIENT MEDICATIONS: 1. Coenzyme Q10. 2. Ferrous sulfate 325 mg daily. 3. Metoprolol. 4. [place]-3 fatty acids. 5. Nifedipine. 6. Ramipril. 7. Aspirin 81 mg daily. 8. Warfarin. PHYSICAL EXAMINATION: VITAL SIGNS: Temperature 98.3, blood pressure 112/58, pulse 76, and 100% oxygen saturation on room air. GENERAL: 74-year-old man, sitting up in a chair comfortably, in no distress. MENTAL: He is in good spirits, alert and fully oriented, pleasant and conversational. SKIN: He is pale. No jaundice. No rashes were palpable. EYES: No scleral icterus. Extraocular movements intact. ENT: Mucous membranes moist. No oral lesions. LYMPH: No submandibular or supraclavicular lymphadenopathy. THYROID: Nontender to palpation. HEART: Regular rate and rhythm. LUNGS: Clear to auscultation bilaterally. ABDOMEN: Bowel sounds present. Soft, nontender to palpation throughout. EXTREMITIES: No peripheral edema. VESSELS: Radial pulses 2+ bilaterally. NEURO: Cranial nerves 2 through 12 intact bilaterally. No focal deficits. LABORATORY STUDIES: Hemoglobin up to 7.1 after transfusion, WBC 13.3, platelets 172. BUN 38, creatinine 0.89. INR 1.8. Sodium 135, potassium 4.2. Lactic acid 1.4, total bilirubin 0.5, alkaline phosphatase 40, AST 16, ALT 13, and albumin 3.1. IMAGING STUDIES: Chest x-ray showed no acute processes. CT of the abdomen and pelvis showed no acute processes. There is some stable hepatic cyst as well as calcified granulomas. There was diverticulosis of the colon without evidence of diverticulitis. Otherwise the bowel was normal. No free fluid. ASSESSMENT AND PLAN: 1. Melena. 2. Acute blood loss anemia. 3. History of recurrent gastrointestinal bleeding from arteriovenous malformations. The patient's current presentation is indeed consistent with recurrent significant gastrointestinal bleeding. Given the elevated BUN and melanotic appearance, I most highly suspect an upper gastrointestinal source. He has had arteriovenous malformations cauterized in the stomach as well as the right colon, as well as arteriovenous malformations in the mid small bowel seen on capsule endoscopy back in 2018. This is difficult situation as he does require anticoagulation with his mechanical valve. We are going to plan for diagnostic upper endoscopy with EGD and push enteroscopy tomorrow. If this exam is negative or unrevealing, then the patient may indeed need to be referred to a tertiary center with capability for double balloon enteroscopy. In the meantime, continue Protonix drip. He can have diet tonight, but have him n.p.o. after midnight. Thank you for the consultation. Please call anytime with questions or concerns. Job ID: [id number]
--- NOTE | 2019-11-24 01:06 | CON ---
DATE OF CONSULTATION: HISTORY OF PRESENT ILLNESS: Mr. Hardy is a 74-year-old male with a history of GI bleeds in the past. He presented with dark stool and anemia. He says he feels much better . PAST MEDICAL HISTORY: Remarkable for: 1. Mechanical aortic valve placed in 1999, on Coumadin. 2. History of hypertension. 3. Reflux disease. 4. Degenerative arthritis. 5. History of hepatitis B and C. 6. History of coronary artery disease reported, but he did not have a bypass when he had his aortic valve replaced. 7. History of an appendectomy. 8. History of carpal tunnel surgery. 9. History of AV malformations cauterized on past endoscopies. FAMILY HISTORY: Positive for Parkinson disease. He is actually old enough that his father in the [employer] ship explosion in [place] when he was a baby. Negative for lung disease in early age. SOCIAL HISTORY: He was a smoker. He was making moonshine and drinking that apparently but to stop doing that. ALLERGIES: REPORTS ALLERGIES TO SULFA. REVIEW OF SYSTEMS: 10-point review of systems is otherwise negative. PHYSICAL EXAMINATION: GENERAL: Actually looks healthy. VITAL SIGNS: He is afebrile. Heart rate is 95, respiratory rate 16, oximetry is 97, blood pressure 124/72. HEENT: Pupils are equal. Sclerae anicteric. NECK: Supple. No lymphadenopathy. LUNGS: Clear. HEART: Regular rhythm. S1 and S2 are normal. ABDOMEN: Soft and nontender. EXTREMITIES: Without clubbing, cyanosis, or edema. LABORATORY DATA: White count 13.3, hemoglobin 7.1, platelets 172,000. Sodium 135, potassium 4.2, chloride 106, bicarb 21, BUN 38, creatinine 0.89. IMPRESSION: Blood loss anemia associated with anticoagulation for mechanical aortic valve. His INR yesterday was 1.8. He is stable in the evaluation by Gastroenterology. Once this is complete, he can move out of the intermediate care unit. We will sign off. This is a 50-minute consult unit coordinating care. Job ID: [id number]
[2019-11-24] MEDS: Sodium Chloride 0.9% 1,000 ML IV SCH ×2 (04:45→18:12)
[2019-11-24] MEDS: Pantoprazole 80 MG, Admixture Fee 1 EACH in Sodium Chloride 0.9% 100 ML IVPB SCH (05:45)
[2019-11-24 05:47] LABS: #Basophils 0.1 thou/uL (0.0-0.2); #Eosinphils 0.5 thou/uL (0.0-0.7); #Lymphocytes 1.5 thou/uL (1.20-3.40); #Monocytes 1.1 thou/uL (0.11-0.59); #Neutrophils 8.2 thou/uL (1.40-6.50); %Basophils 0.6 % (0.0-1.0); %Eosinophils 4.8 % (0.0-10.0); %Lymphocytes 13.5 % (21.0-51.0); %Monocytes 9.7 % (0.0-10.0); %Neutrophils 71.5 % (42.0-75.0); Hemoglobin 7.5 g/dL (14.0-18.0); Mean Corpuscular HGB CONC 34.1 g/dL (32.0-36.0); Mean Corpuscular Hemoglobin 32.7 pg (27.0-31.0); Mean Corpuscular Volume 95.9 fL (78.0-98.0); Mean Platelet Volume 7.2 fL (7.4-10.4); Platelet Count 180 thou/uL (130-400); Red Blood Cell (RBC) Count 2.31 mill/uL (4.70-6.10); White Blood Cell (WBC) Count 11.5 thou/uL (4.8-10.8)
[2019-11-24] MEDS: Metoprolol Tartrate 25 MG TAB PO SCH ×2 (05:50→20:10)
[2019-11-24] MEDS ORDERED: PROPOFOL 200 MG/20 ML VIAL ONE (09:37)
[2019-11-24] MEDS ORDERED: Sodium Chloride 0.9% (PF) 10 ML VIAL FS PRN (13:58)
--- NOTE | 2019-11-24 17:11 | OP ---
DATE OF PROCEDURE: 11/24/2019 SIGN MAINTENANCE SURGEON: None. PROCEDURE PERFORMED: Esophagogastroduodenoscopy with push enteroscopy of the small bowel. INDICATIONS: 1. Melena. 2. Acute blood loss anemia. 3. Prior history of gastrointestinal arteriovenous malformations with bleeding. MEDICATIONS: See Anesthesia record. FINDINGS: After discussion of the risks, benefits, and alternatives of the procedure, informed consent was obtained and witnessed. Pre-endoscopic cardiopulmonary examination was satisfactory. Time-out was performed before sedation was achieved. Sedation was achieved with Anesthesia assistance in the endoscopy unit. A Pentax adult colonoscope was inserted into the oropharynx and passed through the cricopharyngeus under direct visualization. The esophageal mucosa appeared normal throughout with a normal-appearing Z-line. There was no evidence of any esophageal varices. The endoscope was advanced into the stomach. Forward and retroflexed views of the entire gastric mucosa were obtained. There was no evidence of any old blood or active bleeding in the stomach. No evidence of gastric varices. There was some patchy erythema and mucosal atrophy in the gastric antrum and distal body, but there was no bleeding, no erosion or ulceration, and no arteriovenous malformation noted in the stomach. The endoscope was advanced through the pylorus and into the small intestine. I was able to push the endoscope all the way to 170 cm, which I estimate was in the proximal to mid jejunum. The mucosa was carefully examined both during insertion and on careful withdrawal, and the small bowel mucosa appeared completely normal to the extent examined. The upper endoscope was then completely withdrawn and the patient allowed to recover. The patient tolerated the procedure well. There were no immediate postprocedure complications. IMPRESSION: 1. Atrophic mucosa in the gastric antrum, with patchy erythema, but no bleeding, no erosions or ulcerations, and no arteriovenous malformation noted. 2. Normal small bowel, examines to 170 cm (proximal to mid jejunum). RECOMMENDATIONS: 1. The patient's anticoagulation can be cautiously restarted. 2. Trend CBC and CMP tomorrow. 3. The patient needs to be on iron supplementation. 4. If there is no further evidence of bleeding with this, then the patient can follow up with Dr. Gibson as an outpatient for consideration of repeat capsule endoscopy. 5. If the patient does have clinically significant recurrent bleeding back on warfarin, get a tagged RBC scan to attempt better localization. Job ID: [id number]
--- NOTE | 2019-11-24 17:32 | PDOC.HOSPP ---
- Subjective Encounter Date: 11/24/19 Encounter Time: 10:00 Subjective: The patient reported feeling dizzy and lightheaded. His last bowel movement was yesterday and was black in color. He was transfused 2 units of blood and his hemoglobin came up to 7.5. He is scheduled for EGD today - Objective Vital Signs & Weight: Vital Signs (12 hours) Temp Pulse Resp BP Pulse Ox 11/24/19 16:38 97.6 F 82 20 134/71 98 11/24/19 14:55 97.9 F 79 18 145/82 H 98 11/24/19 14:00 97.6 F 77 18 143/85 H 97 11/24/19 11:41 97.6 F 80 20 131/78 99 11/24/19 08:00 96 11/24/19 07:33 97.7 F 74 20 135/75 97 Weight Weight 194 lb 12.8 oz Most Recent Monitor Data Heart Rate from ECG 78 NIBP 107/59 NIBP BP-Mean 75 Respiration from ECG 24 SpO2 100 I&O: 11/23/19 11/24/19 11/25/19 06:59 06:59 06:59 Intake Total 633.8 325 Output Total 855 Balance -221.2 325 Result Diagrams: 11/24/19 05:05 11/23/19 03:25 Additional Labs: Accuchecks 11/24/19 11:54 POC Glucose 122 H Hospitalist ROS - Review of Systems Constitutional: denies: fever, chills - Medication Medications: Active Medications Generic Name Dose Route Start Last Admin Trade Name Freq PRN Reason Stop Dose Admin Sodium Chloride 1,000 mls @ 75 mls/hr 11/23/19 01:00 11/24/19 04:45 Normal Saline 0.9% IV 1,000 mls .[id number] ELLE Administration Metoprolol Tartrate 12.5 mg 11/23/19 09:00 11/24/19 05:50 Lopressor PO 12.5 mg BID ELLE Administration - Exam General Appearance: NAD, awake alert Eye: PERRL, anicteric sclera ENT: normocephalic atraumatic, no oropharyngeal lesions Neck: supple, symmetric, no JVD Heart: RRR, no gallops, no rubs Heart - other findings: systolic murmur right second intercostal space Respiratory: CTAB, no wheezes, no rales, no ronchi Gastrointestinal: soft, normal bowel sounds Gastrointestinal - other findings: umbilical hernia Extremities: no cyanosis, no clubbing, no edema Skin: normal turgor, no lesions, no rashes Neurological: cranial nerve grossly intact, normal sensation to touch, no focal deficits, no new deficit Hosp A/P - Plan EGD: atrophic mucosa in the gastric antrum with patchy erythema but no bleeding This is a 74 year old male who presented with a history of multiple and recurrent GI bleeds who presented with possible GI bleed Anemia - upper endoscopy today was unremarkable. Per GI can restart anticoagulation and monitor for bleeding with trending CBC tomorrow - will check iron panel/B12/folate - if CBC stable, can consider outpatient capsule endoscopy with Dr. Gibson, but if bleeds again, then will get a tagged RBC scan Presence of mechanical aortic valve - will resume coumadin tonight 2.5 mg at lower dose, recheck INR tomorrow - goal 2.5 to 3.5. Leukocytosis - improving. WBC down to 11 Hyponatremia- mild, repeat BMP tomorrow DVT prophylaxis: resume warfarin Code status: full code
[2019-11-24] MEDS ORDERED: Warfarin Sodium 2 MG TAB PO SCH (17:45)
[2019-11-24 18:44] LABS: Iron 20 ug/dL (65-175); Iron Binding Capacity, Total 373 mcg/dL (261-462)
--- NOTE | 2019-11-25 00:05 | RAD ---
Exam: Chest one view HISTORY: Shortness of breath. Comparison: 11/22/2019 FINDINGS: Pacemaker: Stable left-sided transvenous pacemaker. Stable sternotomy wires. Cardiac silhouette:Mild enlarged cardiac silhouette. Aorta: Atherosclerosis Pulmonary vessels: Slightly prominent Costophrenic angles: Small right-sided pleural effusion. Fluid tracks along the minor fissure. LUNGS: Hyperinflation with mild emphysematous changes, predominantly in the upper lobes. Pneumothorax: None Osseous abnormalities: None IMPRESSION: 1. Cardiomegaly 2. Mildly prominent pulmonary vessels, along with pleural effusion. Correlate for heart failure. 3. Mild emphysematous changes predominantly the upper lobes.
--- NOTE | 2019-11-25 02:35 | PDOC.EVN ---
Event Note - Event Note Event Note: RN called - Pt SOB. CXR - congestion. Will try 1 dose Lasix. DC IVF
[2019-11-25] MEDS ORDERED: Furosemide 20 MG/2 ML VIAL SLOW IVP SCH (02:45)
[2019-11-25 05:04] LABS: INR-International Normal Ratio 1.2; Prothrombin Time 15.4 SEC (12.0-14.7)
[2019-11-25 05:17] LABS: Hemoglobin 8.8 g/dL (14.0-18.0); Mean Corpuscular HGB CONC 33.5 g/dL (32.0-36.0); Mean Corpuscular Hemoglobin 32.1 pg (27.0-31.0); Mean Corpuscular Volume 95.7 fL (78.0-98.0); Mean Platelet Volume 7.1 fL (7.4-10.4); Platelet Count 200 thou/uL (130-400); RBC Distribution Width 17.7 % (11.5-14.5); Red Blood Cell (RBC) Count 2.73 mill/uL (4.70-6.10); White Blood Cell (WBC) Count 15.4 thou/uL (4.8-10.8)
[2019-11-25 05:26] LABS: Anion Gap 9 mmol/L (10-20); BUN (Urea Nitrogen) 17 mg/dL (8.4-25.7); Calc. Creatinine Clearance 94 mL/min (70-130); Calcium 8.1 mg/dL (7.8-10.44); Carbon Dioxide 24 mmol/L (23-31); Chloride 105 mmol/L (98-107); Estimated GFR-MDRD 84; Glucose 109 mg/dL (83-110); Magnesium 1.9 mg/dL (1.6-2.6); Potassium 4.4 mmol/L (3.5-5.1); Sodium 134 mmol/L (136-145)
[2019-11-25] MEDS ORDERED: Pantoprazole 40 MG VIAL IVP SCH (09:00)
[2019-11-25] MEDS: Metoprolol Tartrate 25 MG TAB PO SCH (09:30)
[2019-11-25] MEDS ORDERED: Ferrous Sulfate 325 MG TAB PO SCH ×2 (10:30→17:00)
--- NOTE | 2019-11-25 11:34 | PRG ---
DATE OF SERVICE: 11/25/2019 SUBJECTIVE: Mr. Hardy is feeling okay this morning. He has had only 1 tiny bowel movement since yesterday, dark in color. Hemoglobin is stable, up with transfusion now to 8.7. He did have significant shortness of breath last night, had a chest x-ray which shows some evidence of fluid overload, also BNP elevation to 802. He received IV Lasix and then breathing treatment and is now doing much better. He is tolerating his diet. OBJECTIVE: VITAL SIGNS: Temperature 98.2, pulse 75, blood pressure is 117/67, and 97% oxygen saturation on room air. GENERAL: No acute distress. HEART: Regular rate and rhythm. LUNGS: Bibasilar crackles. No wheezing. No respiratory distress. ABDOMEN: Bowel sounds present. Soft, nontender to palpation. EXTREMITIES: No peripheral edema. LABORATORY STUDIES: Hemoglobin 8.8, WBC 15.4, platelets 200. INR 1.2. Sodium 134, potassium 4.4, BUN 17, creatinine 0.89. BNP elevated to 802.2. Vitamin B12 of 427, folate 12.5, ferritin 56.4, iron 20, TIBC 373, 5% iron saturation. ASSESSMENT AND PLAN: 1. Obscure overt gastrointestinal bleeding, recurrent, with negative EGD/small bowel enteroscopy yesterday. 2. Acute blood loss anemia, stabilized. It appears the patient's active bleeding has stopped again, his BUN has declined dramatically. His hemoglobin is stabilized, and melena appears to be resolving. Coumadin was started back last night. I advised the patient to simply continue to monitor his stool and if there is concern for recurrent overt bleeding, please let us know. He will follow up in clinic with Dr. Gibson. They may want to consider repeat small-bowel capsule endoscopy, depending on how he does. 3. Pulmonary edema. The patient had evidence of pulmonary edema on chest x-ray last night as well as elevated BNP. The patient does have a history of aortic valve replacement, but denies any known diagnosis of congestive heart failure. We would leave further workup of this to the discretion of the primary service. Job ID: [id number]
[2019-11-25 12:27] VITALS: BP 119/65; TEMP 98.5
[2019-11-25] MEDS ORDERED: Warfarin Sodium 2 MG TAB PO SCH (17:00)
--- NOTE | 2019-11-26 08:48 | DIS ---
DATE OF ADMISSION: 11/23/2019 DATE OF DISCHARGE: 11/25/2019 DISCHARGE DIAGNOSES: 1. Acute blood loss anemia, possibly secondary to occult gastrointestinal bleeding. 2. Iron deficiency anemia. 3. Leukocytosis. 4. Hyponatremia. 5. Bilateral renal cysts. 6. Hepatic cyst. 7. Mild pulmonary edema. 8. Hyponatremia. SECONDARY DISCHARGE DIAGNOSES: Presence of mechanical aortic valve, hypertension. CONSULTATIONS: Dr. Julian Sanders Pulmonology/Critical Care, Dr. Alexi Garcia with Gastroenterology. PROCEDURES: Upper endoscopy on 11/24/19. BRIEF HISTORY OF PRESENT ILLNESS: This is a 74-year-old male with a past medical history of prosthetic mechanical aortic valve, hypertension, GERD, recurrent GI bleeds, who had presented to the emergency room with rectal bleeding. The patient had reported that 4 to 5 days prior to admission, he had started having some melena. He reported black stools and discontinued his Coumadin. Few days prior to presentation, patient had reported some lightheadedness and fell down and developed hematoma over his left flank. The patient presented to the emergency room for further evaluation. Upon arrival to the emergency room, the patient had a blood pressure of 94/60, low-grade temp of 99.1. Hemoglobin was noted to be 6.5. The patient's INR was 1.8. The patient was admitted for further workup and started on a Protonix drip. HOSPITAL COURSE: Acute blood loss anemia, possibly secondary to GI bleed: The patient was transfused 2 units of PRBCs with improvement in his hemoglobin to 7.5 on the . The patient continued to report some dizziness and lightheadedness on 11/24. GI was consulted and the patient underwent upper endoscopy, which showed patchy erythema with no evidence of bleeding. After the patient's endoscopy, the patient received a third unit of blood with improvement in his hemoglobin to 8.8. The patient had an iron panel checked, which showed a ferritin of 56.4, iron saturation of 5, iron of 20, and TIBC of 373. The patient was started on iron supplementation in the hospital. His B12 and folate levels were checked which were normal. Per Dr. Garcia, it was okay to restart his Coumadin. He was advised to continue his omeprazole and resume iron supplements. He needs to follow up with his PCP in a week and follow up with Dr. Gibson as an outpatient for consideration of a capsule endoscopy. However, if the patient were to rebleed, he was advised to come back to the hospital for consideration of a tagged RBC scan. Mechanical aortic valve on anticoagulation: The patient's Coumadin was restarted at 2 mg on 11/24. His INR was 1.2 on 11/25. The patient states that he takes Coumadin 2.5 mg on Sundays and 5 mg on Tuesday, Tuesday, and Tuesday. He also takes 2.5 mg on Tuesdays and . The patient was advised to resume his 2.5 mg of Coumadin and to go to the [facility] tomorrow and have his INR rechecked for further adjustment. Per patient, his goal INR is 2-3. Leukocytosis: The patient had a white blood cell count of 13.9 on the , which improved to 11.5. It went back up again to 15.4 on the day of discharge. The patient denies cough, shortness of breath, urinary symptoms. This may be reactive from his recent procedure. He can have a repeat CBC as an outpatient and follow up with his PCP. Mild pulmonary edema: The patient reported some acute shortness of breath on the . Chest x-ray shows some cardiomegaly with mild prominent pulmonary vessels. He was given 1 dose of IV Lasix with improvement. The patient denies any shortness of breath or cough. This was most likely secondary to fluid overload from IV fluids and blood transfusion. Consider repeat chest x-ray as an outpatient. Hypertension: The patient takes ramipril and nifedipine at home. However, these medications were held initially during his hospitalization. The patient was getting metoprolol 25 mg p.o. b.i.d. and his blood pressure remained 117 to 120 systolic. Therefore, his ramipril and nifedipine were discontinued on discharge and to be re-initiated if his blood pressure becomes uncontrolled. DISCHARGE PHYSICAL EXAMINATION: VITAL SIGNS: Temperature 98.3, heart rate 82, respiratory rate 16, O2 saturation 92% on room air, blood pressure 122/69. GENERAL: The patient is alert, awake, oriented x3. HEART: Regular rate and rhythm with systolic murmur at the right second intercostal space. LUNGS: Clear to auscultation bilaterally. ABDOMEN: Positive bowel sounds, soft, nontender. The patient does have an umbilical hernia. EXTREMITIES: No edema. PERTINENT LABORATORY DATA: CBC, 11/25: WBC 15.4, hemoglobin 8.8, hematocrit 26.1, platelet count of 200. BMP, 11/25: Sodium 134. Iron panel: Iron 20, TIBC 373, iron saturation percentage 5, ferritin 56.4. LFTs: AST 16, ALT 13, alkaline phosphatase 40. Vitamin B12 :of 427. Folate 12.5. BNP 802.2. INR 11/25: 1.2. PERTINENT IMAGING: Chest x-ray, 11/22: No acute cardiopulmonary abnormality. Mild cardiomegaly without evidence of cardiac decompensation. CT abdomen, 11/22: Shows stable hepatic cysts and a calcified granuloma. There are stable pleural based calcifications. There are stable bilateral renal cysts. There is a small fat containing umbilical hernia. DISCHARGE CONDITION: Stable. ACTIVITY: As tolerated. DIET: Heart healthy diet. DISCHARGE MEDICATIONS: 1. Ferrous sulfate 325 mg p.o. b.i.d. 2. Albuterol Ventolin HFA two puffs inhalation as directed. 3. Aspirin 81 mg p.o. daily. 4. Metoprolol 25 mg p.o. b.i.d. 5. Niacin 500 mg p.o. daily. 6. Omeprazole 20 mg p.o. daily. 7. Red yeast rice 1200 mg p.o. daily. 8. CoQ10 200 mg p.o. daily. 9. Vitamin C/E/zinc/copper/lutein 1 capsule p.o. b.i.d. 10. Warfarin 5 mg Tuesday, Tuesday, Tuesday; 2.5 mg Tuesday, , Tuesday, Tuesday. DISCHARGE INSTRUCTIONS: The patient is to follow up with his PCP in a week. Consider repeat CBC for evaluation of leukocytosis. The patient's nifedipine was discontinued and ramipril was discontinued on discharge due to soft blood pressures in the hospital. Consider re-initiation of these medications if needed. Continue to follow up liver and renal cysts as an outpatient. Job ID: [id number] MTDD
--- NOTE | 2019-11-26 22:29 | PQF ---
SAP Kettle Operator Crystal Reports Winform Viewer JENNIFER CHRISTINE ALAN, JANINA [id number] [id number] CLINICAL DOCUMENTATION CLARIFICATION FORM: POST DISCHARGE Addendum to original discharge summary date: ____ Late entry note date: __ DATE: 11/26/19 ATTN: Dr. Janina Anthony Please exercise your independent, professional judgment in responding to the clarification form. Clinical indicators are provided on the bottom of this form for your review Can you please further clarify the specificity of pulmonary edema? Please check appropriate box(s): [ X ] Acute Pulmonary edema [ ] Acute on chronic Pulmonary edema [ ] Pulmonary edema unspecified [ ] Other diagnosis please specify [ ] Unable to determine In addition, please specify: Present on Admission (POA): [ ] Yes [ ] No [ ] Unable to determine For continuity of documentation, please document condition throughout progress notes and discharge summary. Thank You. CLINICAL INDICATORS - SIGNS / SYMPTOMS / LABS DS p2 11/25 Dr Anthony Mild pulmonary edema: The patient reported some acute shortness of breath on the 15th... Most likely this was from fluid overload from IV fluids and blood transfusion. DS p2 11/25 Dr Anthony Chest x-ray shows some cardiomegaly with mild prominent pulmonary vessels PN p1 11/25 Dr Garcia The patient had evidence of pulmonary edema on chest x-ray last night as well as elevated BNP. PN p1 11/25 Dr Garcia LUNGS: Bibasilar crackles Chest X-ray p1 11/24 Dr. Mortensen Mild prominent pulmonary vessels, along with pleural effusion RISK FACTORS PN p1 11/25 History of aortic valve replacement H&P p1 11/23 Hypertension H&P p2 11/23 Smoked until 2004 H&P p3 11/23 Gastrointestinal bleed H&P p3 11/23 Acute blood loss anemia TREATMENTS: Chest X-ray Dr Mortensen 11/25 IV Lasix MAR 11/[address] Sanders- 11/23 Pulmonary Consult (This form is maintained as a part of the permanent medical record) 2014 [employer]. All Rights Reserved [email or web address]
== END 2019-11-25 12:55 | disposition home or self-care (01) | DRG 377 ==
LOC: ERS 21:28 → IMCU/EMU 11-23 00:33 → T4-B 11-23 18:29
PROVIDERS: ADMIT Internal Medicine; ATTEND Internal Medicine
PROC: 30233N1 Transfusion of Nonautologous Red Blood Cells into Peripheral Vein, Percutaneous Approach (ICD-10-PCS; 2019-11-23)
PROC: 0DJ08ZZ Inspection of Upper Intestinal Tract, Via Natural or Artificial Opening Endoscopic (ICD-10-PCS; principal; 2019-11-24)
DX: K92.1 Melena (principal); J81.0 Acute pulmonary edema; D62 Acute posthemorrhagic anemia; E87.1 Hypo-osmolality and hyponatremia; D50.9 Iron deficiency anemia, unspecified; D72.829 Elevated white blood cell count, unspecified; N28.1 Cyst of kidney, acquired; K76.89 Other specified diseases of liver; I10 Essential (primary) hypertension; K21.9 Gastro-esophageal reflux disease without esophagitis; M19.90 Unspecified osteoarthritis, unspecified site; I25.10 Atherosclerotic heart disease of native coronary artery without angina pectoris; E87.70 Fluid overload, unspecified; Z88.0 Allergy status to penicillin; Z95.2 Presence of prosthetic heart valve; Z95.0 Presence of cardiac pacemaker; Z79.01 Long term (current) use of anticoagulants; Z79.82 Long term (current) use of aspirin; Z79.899 Other long term (current) drug therapy; Z87.891 Personal history of nicotine dependence; Z90.49 Acquired absence of other specified parts of digestive tract; Z88.2 Allergy status to sulfonamides
CPT/HCPCS: 36415; 36416; 36430; 71045; 74177; 80048; 80053; 82274; 82607; 82728; 82746; 83540; 83550; 83605; 83735; 83880; 85025; 85027; 85610; 85730; 86850; 86900; 86901; 93005; 94640; 96361; 96365; 96374; C9113; J1940; J2704; J3490; J7620; P9016; Q9967

== ENCOUNTER 2020-06-06 11:50 | Inpatient (IN) | payer MEDICARE, OTHER ==
[2020-06-06 14:16] VITALS: BMI 29.1
[2020-06-06] MEDS ORDERED: Ondansetron PF 4 MG/2 ML Vial IVP PRN (14:34)
[2020-06-06] MEDS ORDERED: Ondansetron ODT 4 MG TAB PO PRN (14:34)
[2020-06-06] MEDS ORDERED: hydrALAZINE 20 MG/ML VIAL SLOW IVP PRN (14:34)
[2020-06-06] MEDS ORDERED: Albuterol 200 PUFF (6.7GM INHALER) INH PRN (15:07)
[2020-06-06] MEDS ORDERED: Warfarin Sodium 5 MG TAB PO SCH ×2 (17:00)
--- NOTE | 2020-06-06 17:07 | CON ---
DATE OF CONSULTATION: 06/06/2020 REASON FOR CONSULTATION: Shortness of breath. PRIMARY HOME INSURANCE AGENT: Shiv Romero MD HISTORY OF PRESENT ILLNESS: Mr. Hardy is a very pleasant 74-year-old white gentleman, who comes to the hospital for worsening shortness of breath. He states for the last week he has noticed worsening shortness of breath, what appears to be PND, orthopnea as well as worsening lower extremity edema. He decided to come in and he was admitted with a possible diagnosis of heart failure, so Cardiology is being consulted for further evaluation and care. He has already received a dose of IV Lasix and is feeling better after some diuresis. He has a history of a mechanical aortic valve, which was placed many years ago and he has had several episodes of GI bleeding. He denies any melena. His INR is therapeutic. He denies chest pain, tightness, or pressure. PAST MEDICAL HISTORY: 1. Mechanical aortic valve in 1999, on chronic Coumadin therapy. 2. Hypertension. 3. GERD. 4. DJD. 5. History of hepatitis B and C. 6. History of mild coronary artery disease on heart cath done before his mechanical aortic valve replacement. PAST SURGICAL HISTORY: 1. Appendectomy. 2. Carpal tunnel surgery. 3. Cauterized AV malformations. 4. Mechanical aortic valve placement in 1999. FAMILY HISTORY: Parkinson disease. SOCIAL HISTORY: Former smoker. No alcohol, tobacco, or drugs currently. OUTPATIENT MEDICATIONS: 1. Lasix 40 mg a day. 2. Ramipril 10 mg b.i.d. 3. Omeprazole 20 mg a day. 4. Nifedipine 30 mg a day. 5. Albuterol inhaler. 6. PreserVision softgels. 7. Aspirin 81 a day. 8. Warfarin 2.5 mg. 9. Metoprolol 25 mg b.i.d. 10. Alirocumab 75 mg subcutaneously every 2 weeks. ALLERGIES: SULFA DRUGS. REVIEW OF SYSTEMS: A 12-point review of systems was done and was all negative unless stated in the history of present illness. PHYSICAL EXAMINATION: VITAL SIGNS: Blood pressure 153/77, temperature 97.8, pulse 83, respiratory rate 20, saturating 98% on 2 L nasal cannula. GENERAL: Awake, alert, oriented x3, in no distress. HEENT: Normocephalic, atraumatic. NECK: Supple. LUNGS: Clear. CARDIOVASCULAR: S1 and S2. No S3 or S4. There is a very crisp sounding aortic valve replacement on aortic focus with very minimal grade 1/6 systolic murmur. ABDOMEN: Soft. Positive bowel sounds. EXTREMITIES: Trace edema. SKIN: Warm and dry. LABORATORY WORK: Reviewed. White count of 6.3, hemoglobin of 10.2, hematocrit 32, platelet count 289. INR was 2.7. Chemistry with a potassium of 4.3, normal sodium and chloride, carbon dioxide of 21, anion gap of 14, BUN of 16, creatinine 0.94. GFR was 79. Troponin first was normal at 0.018 and BNP was 428. Albumin was 3.9. COVID testing is pending. CT of the chest was reviewed, shows no acute cardiopulmonary abnormality. There are bilateral pleural effusions. They are stable, bilateral pleural plaques with stable right upper lobe scarring and a stable pericardial calcification and stable right adrenal adenoma. ASSESSMENT: 1. [id number] systolic versus diastolic heart failure. 2. History of mechanical aortic valve replacement. 3. Chronic anticoagulation, on Coumadin, therapeutic. 4. History of gastrointestinal bleeding. No evidence of bleeding at this time. PLAN: 1. Continue IV diuresis. 2. We will get an echocardiogram. It has already been ordered by Dr. Miller. The last echo that he had was in 2016 in the office with Dr. Romero. His EF at that time was 60% to 65% with normal working valve. 3. Continue to trend troponins. Thank you for letting us to participate in the care of your patient. We will continue to follow. Job ID: [id number]
[2020-06-06] MEDS: Furosemide 40 MG/4 ML VIAL SLOW IVP SCH (17:08)
[2020-06-06] MEDS: Metoprolol Tartrate 25 MG TAB PO SCH (20:00)
[2020-06-06] MEDS: Famotidine 20 MG TAB PO SCH (20:25)
[2020-06-06] MEDS: Ramipril 5 MG CAP PO SCH (20:25)
[2020-06-06] MEDS: Vit A,C & E/Lutein/Minerals Tablet PO SCH (20:25)
[2020-06-06] MEDS: Acetaminophen 500 MG TAB PO PRN (20:25)
--- NOTE | 2020-06-06 22:11 | HP ---
PRIMARY CARE PROVIDER: Dr. Lisa Riley. CHIEF COMPLAINT: Shortness of breath. HISTORY OF PRESENT ILLNESS: This is a 74-year-old male, who presented to [facility] complaining of approximately 1-week history of progressive shortness of breath, limiting his activity, able to walk only several feet before becoming extremely short of breath. The patient denied any change to his chronic medication regimen, dietary indiscretion, travel history, fever, chills, or productive cough. The patient states he has had intermittent bouts of similar episodes with swelling of his lower extremities, shortness of breath and intermittent dosing of Lasix. The patient states he is not taking any Lasix at home and is unsure of his weight, because he does not take it daily. The patient admits to bloating of his stomach, swelling of his ankles and hands. The patient denies any specific diagnosis of heart failure, but does admit to a remote history of aortic valve replacement on chronic anticoagulation with Coumadin. The patient does follow with Dr. Romero with Cardiology Service and sees him on approximately three month intervals. The patient is unsure of the last echocardiogram he performed. The patient denied any home oxygen use. No family members with similar symptoms. In the emergency room, the patient underwent general evaluation including chest imaging with plain radiographs and CT modality showing bilateral pleural effusions. BNP was noted at 480 at which point patient received IV Lasix. The patient states he had diuresis after the Lasix with some improvement in his shortness of breath. The patient also was given transdermal nitroglycerin and referred to [facility] for further evaluation. PAST MEDICAL HISTORY: 1. Gastroesophageal reflux disease. 2. Hypertension. 3. Chronic anticoagulation with Coumadin. 4. Aortic stenosis status post aortic valve replacement. 5. History of GI bleed. 6. Osteoarthritis. PAST SURGICAL HISTORY: 1. Status post appendectomy. 2. Status post tonsillectomy. 3. Status post carpal tunnel release. 4. Status post prosthetic mechanical aortic valve replacement in 1999. 5. Endoscopy secondary to GI bleeding with arteriovenous malformations cauterized. CURRENT MEDICATIONS: 1. Ventolin HFA 2 puffs inhaled q.6 hours p.r.n. 2. Enteric-coated aspirin 81 mg p.o. daily. 3. Ferrous sulfate 325 mg p.o. b.i.d. 4. Metoprolol succinate 25 mg p.o. b.i.d. 5. Niacin 500 mg p.o. daily. 6. Omeprazole 20 mg p.o. daily. 7. Red yeast rice 1200 mg p.o. daily. 8. Coenzyme Q10 200 mg p.o. daily. 9. Coumadin 5 mg p.o. daily on Tuesday, Tuesday, Tuesday, and 2.5 mg on Tuesday, Tuesday, . ALLERGIES: TO SULFA. FAMILY HISTORY: Mother of complications of Parkinson disease. Father in a chemical explosion. SOCIAL HISTORY: Remote tobacco use, quitting in 2004. History of alcohol use, none currently. No illicit drug use. , living with his in the [place], [place] area. REVIEW OF SYSTEMS: CONSTITUTIONAL: Negative for weight loss or gain, ability to conduct usual activities. SKIN: Negative for rash, itching. EYES: Negative for double vision, pain. ENT/MOUTH: Negative for nose bleeding, neck stiffness, pain, tenderness. CARDIOVASCULAR: Negative for palpitations, dyspnea on exertion, orthopnea. RESPIRATORY: Negative for shortness of breath, wheezing, cough, hemoptysis, fever or night sweats. GASTROINTESTINAL: Negative for poor appetite, abdominal pain, heartburn, nausea , vomiting, constipation, or diarrhea. GENITOURINARY: Negative for urgency, frequency, dysuria, nocturia. MUSCULOSKELETAL: Negative for pain, swelling. NEUROLOGIC/PSYCHIATRIC: Negative for anxiety, depression. ALLERGY/IMMUNOLOGIC: Negative for skin rash, bleeding tendency. Otherwise negative except as stated per HPI. PHYSICAL EXAMINATION: VITAL SIGNS: Blood pressure 153/77, pulse 83, respiratory rate 20, temperature 97.8 degrees Fahrenheit, O2 saturation 98% on 2 L/minute by nasal cannula. GENERAL APPEARANCE: This is a 74-year-old male, alert and oriented x3 , pleasant, responsive, in no acute distress. HEENT: Pupils are equal, round, reactive to light and accommodation. Extraocular muscles are intact. No scleral icterus. No conjunctival injection. Nares are patent. OP is clear. Teeth in fair repair. NECK: Supple. No cervical adenopathy. No thyromegaly. No carotid bruit, no JVD appreciated. Cervical spine with full active and passive range of motion. No meningeal signs noted. CHEST: Diminished breath sounds with bibasilar crackles. Occasional expiratory wheeze. CARDIOVASCULAR EXAM: S1, S2 with mechanical click, murmur consistent with aortic valve replacement. ABDOMEN: Distended without tenderness to palpation. Bowel sounds are positive in all 4 quadrants. No palpable mass. No rebound or guarding. EXTREMITIES: Warm and dry with fair turgor. 1+ edema to the proximal shins bilaterally. Pulses are palpable distally at the dorsalis pedis, posterior tibial, and popliteal arteries bilaterally. Capillary refill less than 2 seconds. NEUROLOGIC: Cranial nerves 2 through 12 are grossly intact. No focal or lateralizing signs appreciated. PERTINENT LABORATORY AND X-RAY FINDINGS: Sodium 137, potassium 4.3, chloride 106, CO2 of 21, BUN 16, creatinine 0.94, estimated GFR 79, glucose 95, calcium 8.8, magnesium 1.9. BNP 428 previously noted 802 on 11/25/2019. CBC showed a white blood cell count of 6.3, hemoglobin 10, hematocrit 33, platelet count 289 with 77% neutrophils. PT 28.1, INR 2.7. Portable chest x-ray dated 06/06/2020 showed bilateral pulmonary edema with pleural effusions. CT of the chest dated 2019 showed bilateral pleural effusions, left greater than right. EKG dated 2019, by my interpretation shows a paced rhythm, heart rates in the 60s. No acute ST- T wave changes appreciated. ASSESSMENT AND PLAN: 1. Acute congestive heart failure exacerbation. The patient will be admitted to the telemetry unit. Last echocardiogram on record per review in 2012 showed a preserved ejection fraction of 60% to 65%. Check 2D transthoracic echocardiogram this admission. Continue Lasix 40 mg IV b.i.d. Serial In's and Out's and daily weight. Check TSH and magnesium level in the a.m. Consult Cardiology Service for any further recommendations. 2. Chronic anticoagulation. Continue Coumadin with daily PT/INR evaluation. Current INR therapeutic at 2.7. 3. Hypertension. Resume home blood pressure regimen and monitor clinical response. 4. Chronic normocytic anemia. Stable currently. No evidence of active blood loss. Serial hemoglobin and hematocrit monitoring in the context of chronic anticoagulation with Coumadin. 5. Prophylaxis. Sequential compression devices while in bed. Pepcid 20 mg p.o. b.i.d. CODE STATUS: Full. Surrogate medical decision maker is the patient's spouse. Job ID: [id number] [facility]
[2020-06-07 04:23] LABS: INR-International Normal Ratio 2.6; Prothrombin Time 27.6 sec (12.0-14.7)
[2020-06-07 04:51] LABS: Band 2 % (5-11); Eosinophils 1 % (0-10); Hemoglobin 10.4 g/dL (14.0-18.0); Lymphocytes 16 % (21-51); MDiff Complete? YES; Mean Corpuscular HGB CONC 32.4 g/dL (32.0-36.0); Mean Corpuscular Hemoglobin 29.6 pg (27.0-31.0); Mean Corpuscular Volume 91.2 fL (78.0-98.0); Mean Platelet Volume 7.1 fL (7.4-10.4); Monocytes 8 % (0-10); Neutrophil 73 % (42-75); Platelet Count 268 thou/uL (130-400); RBC Distribution Width 14.1 % (11.5-14.5); Red Blood Cell (RBC) Count 3.51 mill/uL (4.70-6.10)
[2020-06-07] MEDS: Furosemide 40 MG/4 ML VIAL SLOW IVP SCH ×2 (05:05→15:54)
[2020-06-07] MEDS: Acetaminophen 500 MG TAB PO PRN ×2 (05:05→11:12)
[2020-06-07 05:13] LABS: Anion Gap 14 mmol/L (10-20); BUN (Urea Nitrogen) 17 mg/dL (8.4-25.7); Calc. Creatinine Clearance 83 mL/min (70-130); Calcium 8.4 mg/dL (7.8-10.44); Carbon Dioxide 25 mmol/L (23-31); Chloride 100 mmol/L (98-107); Estimated GFR-MDRD 74; Glucose 94 mg/dL (83-110); Magnesium 1.7 mg/dL (1.6-2.6); Potassium 3.4 mmol/L (3.5-5.1); Sodium 136 mmol/L (136-145)
[2020-06-07] MEDS ORDERED: NIFEdipine XL 30 MG TAB PO SCH (09:00)
[2020-06-07] MEDS ORDERED: Aspirin 81 mg Enteric Coated Tablet PO SCH (09:00)
[2020-06-07] MEDS: Ramipril 5 MG CAP PO SCH (10:05)
[2020-06-07] MEDS: Vit A,C & E/Lutein/Minerals Tablet PO SCH (10:06)
[2020-06-07] MEDS: Metoprolol Tartrate 25 MG TAB PO SCH (10:07)
[2020-06-07] MEDS: Famotidine 20 MG TAB PO SCH (10:07)
[2020-06-07] MEDS ORDERED: Potassium Chloride 20 MEQ TAB PO SCH (13:40)
--- NOTE | 2020-06-07 13:42 | PDOC.HOSPP ---
- Subjective Encounter Date: 06/07/20 Encounter Time: 08:00 Subjective: no overnight events. this morning, shortness of breath improved though on exertion, still not at baseline. No other complaints - Objective Vital Signs & Weight: Vital Signs (12 hours) Temp Pulse Pulse Pulse Resp BP BP 06/07/20 13:30 06/07/20 12:28 73 80 129/77 126/64 06/07/20 11:13 97.8 F 80 15 06/07/20 07:23 98.1 F 80 20 06/07/20 04:42 06/07/20 04:00 98.1 F 77 13 BP BP Pulse Ox Pulse Ox Pulse Ox 06/07/20 13:30 95 06/07/20 12:28 98 94 L 06/07/20 11:13 138/70 99 06/07/20 07:23 138/64 97 06/07/20 04:42 97 06/07/20 04:00 127/66 97 Weight Weight 192 lb I&O: 06/06/20 06/07/20 06/08/20 06:59 06:59 06:59 Intake Total 120 Output Total 1250 Balance -1130 Result Diagrams: 06/07/20 04:01 06/07/20 04:01 Hospitalist ROS - Review of Systems Constitutional: denies: chills, sweats Respiratory: reports: SOB with excertion. denies: cough, shortness of breath, pleuritic pain Cardiovascular: denies: chest pain, palpitations, orthopnea, paroxysmal noc. dyspnea Gastrointestinal: denies: vomiting, abdominal pain, diarrhea, melena, hematochezia Genitourinary: denies: hematuria - Medication Medications: Active Medications Generic Name Dose Route Start Last Admin Trade Name Freq PRN Reason Stop Dose Admin Acetaminophen 1,000 mg 06/06/20 14:34 06/07/20 11:12 Tylenol PO 1,000 mg Q6H PRN Administration Mild Pain (1-3) Aspirin 81 mg 06/07/20 09:00 06/07/20 10:06 Ecotrin PO 81 mg DAILY ELLE Administration Famotidine 20 mg 06/06/20 21:00 06/07/20 10:07 Pepcid PO 20 mg BID ELLE Administration Furosemide 40 mg 06/06/20 16:00 06/07/20 05:05 Lasix SLOW IVP 40 mg 0600,1600 ELLE Administration Metoprolol Tartrate 25 mg 06/06/20 21:00 06/07/20 10:07 Lopressor PO 25 mg BID ELLE Administration Multivitamins/Minerals 1 tab 06/06/20 21:00 06/07/20 10:06 Ocuvite With Lutein PO 1 tab BID ELLE Administration Nifedipine 30 mg 06/07/20 09:00 06/07/20 10:06 Procardia Xl PO 30 mg DAILY ELLE Administration Ramipril 10 mg 06/06/20 21:00 06/07/20 10:05 Altace PO 10 mg BID ELLE Administration Warfarin Sodium 5 mg 06/06/20 17:00 06/06/20 17:25 Coumadin PO 5 mg MWF@1700 ELLE Administration - Exam General Appearance: NAD, awake alert Neck: no JVD Heart: RRR, no gallops, no rubs Heart - other findings: 2nd right inercostal 4/6 pansystolic murmur Respiratory: CTAB, no wheezes, no rales, no ronchi Gastrointestinal: soft, non-tender, non-distended, normal bowel sounds Extremities: no edema Psychiatric: normal affect, normal behavior, A&O x 3 Hosp A/P - Plan #decompensated HFpEF, class II -clinically improving -echo pending -cardiology onboard #mechanical aortic valve -on coumadin; at goal INR #chronic normocytic anemia #Hx of bleeding gastric AVM -may be due to volume overload or aortic-valve induced hemolysis -patient denies melena, hematochezia, hematemesis, hematuria -HgB stable -had EGD w/ push enteroscopy 11/2019; also endorses small bowel capsule -per patient, was requested by his physician to stop taking iron supplementation -smear, haptoglubulin, LDH, AST -iron panel -follow H&H Full code ELOS: 1 night
[2020-06-07] MEDS ORDERED: Electrolyte Replacement Protoc 1 EACH EACH FS SCH (13:45)
[2020-06-07] MEDS ORDERED: Electrolyte Replacement Protocol FS PRN (14:00)
[2020-06-07 14:51] LABS: Band 1 % (5-11); Eosinophils 1 % (0-10); Hemoglobin 11.3 g/dL (14.0-18.0); Lymphocytes 8 % (21-51); MDiff Complete? YES; Mean Corpuscular HGB CONC 32.6 g/dL (32.0-36.0); Mean Corpuscular Hemoglobin 29.6 pg (27.0-31.0); Mean Corpuscular Volume 90.8 fL (78.0-98.0); Mean Platelet Volume 6.6 fL (7.4-10.4); Monocytes 6 % (0-10); Neutrophil 84 % (42-75); Platelet Count 276 thou/uL (130-400); Platelet Morphology Comment Appears Decreased; RBC Distribution Width 14.2 % (11.5-14.5); RBC Morphology Normal; Red Blood Cell (RBC) Count 3.83 mill/uL (4.70-6.10)
[2020-06-07 14:54] LABS: Bilirubin, Direct 0.3 mg/dL (0.1-0.3); Bilirubin, Total 0.7 mg/dL (0.2-1.2)
--- NOTE | 2020-06-07 15:47 | PDOC.CPN ---
- Subjective Date: 06/07/20 Time: 15:45 Interval history: He is doing better. He has diuresed well and feels back to normal. Weaned off O2 supplementation. - Review of Systems General: denies: fever/chills, weight/appetite/sleep changes, night sweats, fatigue Respiratory: denies: cough, congestion, shortness of breath, exercise intolerance Cardiovascular: denies: chest pain, palpitation, edema, paroxysmal nocturnal dyspnea, orthopnea Gastrointestinal: denies: nausea, vomiting, diarrhea, constipation, abd pain, GI bleeding Musculoskeletal: denies: pain, tenderness, stiffness, swelling, arthritis/ arthralgias Neurological: denies: numbness, syncope, seizure, weakness - Objective Allergies/Adverse Reactions: Allergies Allergy/AdvReac Type Severity Reaction Status Date / Time Sulfa (Sulfonamide Allergy Verified 06/06/20 14:44 Antibiotics) Visit Medications: Current Medications Acetaminophen (Tylenol) 1,000 mg PO Q6H PRN PRN Reason: Mild Pain (1-3) Last Admin: 06/07/20 11:12 Dose: 1,000 mg Albuterol Sulfate (Proventil Hfa) 2 puff INH DAILYPRN PRN PRN Reason: COPD Aspirin (Ecotrin) 81 mg PO DAILY [facility] Last Admin: 06/07/20 10:06 Dose: 81 mg Famotidine (Pepcid) 20 mg PO BID [facility] Last Admin: 06/07/20 10:07 Dose: 20 mg Furosemide (Lasix) 40 mg SLOW IVP 0600,1600 [facility] Last Admin: 06/07/20 05:05 Dose: 40 mg Hydralazine HCl (Apresoline) 10 mg SLOW IVP Q4H PRN PRN Reason: SBP > 180 and HR < 70 Metoprolol Tartrate (Lopressor) 25 mg PO BID [facility] Last Admin: 06/07/20 10:07 Dose: 25 mg Miscellaneous Medication (Electrolyte Replacement Protocol) 0 each FS ASDIR PRN ; Protocol PRN Reason: ELECTROLYTE REPLACEMENT Multivitamins/Minerals (Ocuvite With Lutein) 1 tab PO BID [facility] Last Admin: 06/07/20 10:06 Dose: 1 tab Nifedipine (Procardia Xl) 30 mg PO DAILY [facility] Last Admin: 06/07/20 10:06 Dose: 30 mg Ondansetron HCl (Zofran Odt) 4 mg PO Q6H PRN PRN Reason: Nausea/Vomiting Ondansetron HCl (Zofran) 4 mg IVP Q6H PRN PRN Reason: Nausea/Vomiting Ramipril (Altace) 10 mg PO BID [facility] Last Admin: 06/07/20 10:05 Dose: 10 mg Warfarin Sodium (Coumadin) 2.5 mg PO SuTuThSa@1700 [place] Warfarin Sodium (Coumadin) 5 mg PO MWF@1700 [facility] Last Admin: 06/06/20 17:25 Dose: 5 mg Vital Signs & Weight: Vital Signs Temp Pulse Pulse Pulse Resp BP BP 06/07/20 13:30 06/07/20 12:28 73 80 129/77 126/64 06/07/20 11:13 97.8 F 80 15 06/07/20 07:23 98.1 F 80 20 06/07/20 04:42 06/07/20 04:00 98.1 F 77 13 BP BP Pulse Ox Pulse Ox Pulse Ox 06/07/20 13:30 95 06/07/20 12:28 98 94 L 06/07/20 11:13 138/70 99 06/07/20 07:23 138/64 97 06/07/20 04:42 97 06/07/20 04:00 127/66 97 Weight 192 lb - Physical Exam General: alert & oriented x3 HEENT: mucus membranes moist Neck: supple neck Cardiac: regular rate and rhythm Lungs: normal breath sounds Neuro: grossly intact Abdomen: active bowel sounds Extremities: no edema Skin: clear Musculoskeletal: no pain - Labs Result Diagrams: 06/07/20 14:24 06/07/20 04:01 - Telemetry Sinus rhythms and dysrhythmias: sinus rhythm - Assessment/Plan Assessment/Plan: 1. Acute on chronic diastolic CHF 2. Mehcnaical aortic valve. 3. HTN 4. GERD PLAN: - Normal LV function on echo today. - Aortic Valve has moderately increased pressures but not severe. - Continue current meds. - Will recommend he uses extra lasix as needed for edema. - Follow up with Dr. Romero in 2-4 wks
[2020-06-07 15:52] VITALS: BP 134/68; TEMP 97.5
[2020-06-07 16:01] LABS: SARS-CoV-2 MS2 Positive; SARS-CoV-2 N Gene Negative; SARS-CoV-2 S Gene Negative; SARS-CoV-2 by NAA Not Detected (NotDetected); SARS-CoV-2 orf1ab Negative
[2020-06-07] MEDS ORDERED: Warfarin Sodium 2.5 MG TAB PO SCH (17:00)
--- NOTE | 2020-06-09 07:04 | DIS ---
DATE OF ADMISSION: 06/06/2020 DATE OF DISCHARGE: 06/07/2020 HOSPITAL COURSE: Mr. Hardy is a 74-year-old male with medical history of mild coronary artery disease, mechanical aortic valve (placed in 1999, on chronic Coumadin), who presented with shortness of breath. He was diagnosed with heart failure with preserved ejection fraction and chronic anemia. Cardiology was consulted and echocardiography was carried out, which showed suspicion for diastolic dysfunction. The patient was diuresed and improved promptly. For his chronic normocytic anemia, the patient's hemoglobin was 14 in March of 2020 and this presentation was 10. The patient denied any hematochezia, melena, or hematemesis. He did endorse that his physician requested him to stop taking iron supplementation based on iron panel taken in March. Prior to discharge, the patient's hemoglobin was stable and blood smear, LDH, haptoglobin, and bilirubin labs were taken for further followup as an outpatient. PHYSICAL EXAMINATION: VITAL SIGNS: Blood pressure 129/77, pulse 80, oxygen saturation 98% on room air, temperature 97.8, and respiratory rate 15. GENERAL: Lying comfortably in bed. Awake and alert. HEENT: Normocephalic, atraumatic. CARDIAC: Regular rate and rhythm. No gallops or rubs. 4/6 right second intercostal pansystolic murmur. LUNGS: Clear to auscultation bilaterally. No wheezing, rales, or rhonchi. GASTROINTESTINAL: Soft, nontender, and nondistended. Normal bowel sounds. PSYCHIATRIC: Proper mood and affect. Alert and oriented x3. MEDICATION LIST: New medications: No new medications. Discontinued medications: No discontinued medications. Modified medications: Lasix was modified from 40 mg daily to 40 mg p.r.n. for lower extremity swelling. Continued medications: 1. Ventolin. 2. Metoprolol tartrate. 3. Nifedipine. 4. Ramipril. 5. Warfarin. 6. Praluent pen. 7. Aspirin. 8. Omeprazole. Job ID: [id number]
--- NOTE | 2020-06-09 08:39 | PQF ---
Q26 2018 [facility] Updated: CLINICAL DOCUMENTATION CLARIFICATION FORM: Dear Dr. Rubi Date: 06/09/20 Please exercise your independent, professional judgment in responding to the clarification form. Clinical indicators are provided on the bottom of this form for your review. Please check appropriate box(es): HEART FAILURE: A. ACUITY [ ] Acute [ ] Acute on Chronic [ x ] Chronic B. TYPE: [ ] Systolic / HFrEF [ x ] Diastolic / HFpEF [ ] Combined Systolic / Diastolic [ ] Hypertensive Heart Disease [ ] Other diagnosis [ ] Unable to determine In addition, please specify: Present on Admission (POA): [ x ] Yes [ ] No [ ] Unable to determine For continuity of documentation, please document condition throughout progress notes and discharge summary. Thank You. DC SUMMARY: "ECHO WAS CARRIED OUT , WHICH SHOWED SUSPICION FOR DIASTOLIC DYSFUNCTION." PROGRESS NOTE 06/07- TERELL: "ACUTE ON CHRONIC DIASTOLIC CHF" BNP 06/07: 272.8 RISKS: H/O AORTIC VALVE REPLACEMENT (PN -TERELL 06/07) H/O HTN (PN - TERELL 06/07) TREATMENT: TELEMETRY MONITORING IV LASIX (06/06-06/07 - SEE MAR) ECHOCARDIOGRAM 06/07 SUPPLEMENTAL OXYGEN (PN - TERELL 06/07) CDS Signature: Liliana Cardona RN Phone #: [phone] Date: 06/09 This is a permanent part of the Medical Record [facility]
== END 2020-06-07 16:54 | disposition home or self-care (01) | DRG 293 ==
LOC: 2NO 11:50
PROVIDERS: ADMIT Family Medicine; ATTEND Family Medicine
DX: I11.0 Hypertensive heart disease with heart failure (principal); Z20.828 Contact with and (suspected) exposure to other viral communicable diseases; K21.9 Gastro-esophageal reflux disease without esophagitis; D64.9 Anemia, unspecified; M19.90 Unspecified osteoarthritis, unspecified site; I25.10 Atherosclerotic heart disease of native coronary artery without angina pectoris; I50.32 Chronic diastolic (congestive) heart failure; Z95.2 Presence of prosthetic heart valve; Z79.01 Long term (current) use of anticoagulants; Z90.49 Acquired absence of other specified parts of digestive tract; Z90.89 Acquired absence of other organs; Z79.82 Long term (current) use of aspirin; Z88.2 Allergy status to sulfonamides; Z87.891 Personal history of nicotine dependence
CPT/HCPCS: 36415; 80048; 82247; 82248; 83010; 83615; 83735; 83880; 84443; 85025; 85060; 85610; 87635; 90471; 90732; 93306; 93798; G0009; J1940; U0003

== ENCOUNTER 2020-06-16 12:21 | Inpatient (IN) | payer MEDICARE, OTHER ==
[2020-06-16 13:13] LABS: Troponin I 0.044 ng/mL (< 0.028)
[2020-06-16] MEDS ORDERED: Pantoprazole 40 MG VIAL ONE (13:33)
[2020-06-16 16:13] VITALS: BMI 29.0
--- NOTE | 2020-06-16 16:34 | PDOC.HHP ---
Hospitalist HPI - History of Present Illness Dizziness and abdominal cramping History of Present Illness: PCP: Dr. Riley The patient is a 74-year-old male with past medical history significant for GI bleed, aortic valve replacement, hypertension, and coronary artery disease. He presents today after he states that he nearly passed out. He was having a bowel movement at the time and began to feel dizzy and weak. He states that his muscles just felt overall tired. Today he was having stomach cramps mainly in his lower abdomen and suprapubic area. The bowel movement he passed today was black in color. He states he had no bowel movement in 3 days prior to this which is not normal for him. Urinary pattern has been unchanged. Patient denies chest pain, shortness of breath, fever, contact was sick people. Patient does state that he had a colonoscopy and endoscopy about 6 months ago and they were unable to find the area that was bleeding. He also states that he did an evaluation with a capsule camera and they were unable to find any bleeding then also. ED Course: Today in the ER he had lab work completed and an EKG. He was given Protonix 40 mg IV. Hospitalist ROS - Review of Systems Constitutional: reports: weakness Eyes: denies: pain, vision change, conjunctivae inflammation, eyelid inflammation, redness, other ENT: denies: ear pain, ear discharge, nose pain, nose discharge, nose congestion , mouth pain, mouth swelling, throat pain, throat swelling, other Respiratory: denies: cough, dry, shortness of breath, hemoptysis, SOB with excertion, pleuritic pain, sputum, wheezing, other Cardiovascular: denies: chest pain, palpitations, orthopnea, paroxysmal noc. dyspnea, edema, light headedness, other Neurological: reports: other (Dizzy) All other systems reviewed; all pertinent +/- noted in HPI/Subj - Medication Medications: Allergies: Sulfa Current medications: metoprolol tartrate oral TueJun 16, 2020 12:39 KATE Rodriguez Julia TABLET : Strength - 25 mg : ORAL Patient Dose: 25 tab(s) Oral 2 times a day. NIFEdipine TueJun 16, 2020 12:39 KATE Rodriguez Julia TABLET, EXTENDED RELEASE : Strength - 30 mg : ORAL Patient Dose: 30 mg Oral once a day. ramipril TueJun 16, 2020 12:39 KATE Rodriguez Julia CAPSULE : Strength - 10 mg : ORAL Patient Dose: 10 mg Oral 2 times a day. aspirin oral TueJun 16, 2020 12:39 KATE Rodriguez Julia TABLET : Strength - 81 mg : ORAL Patient Dose: 81 mg Oral once a day. warfarin TueJun 16, 2020 12:39 KATE Rodriguez Julia tablet : Strength - 2.5 mg : ORAL Patient Dose: Unknown.TTHSATSUN. warfarin TueJun 16, 2020 12:39 KATE Rodriguez Julia tablet : Strength - 5 mg : ORAL Patient Dose: Unknown.MWF. potassium TueJun 16, 2020 12:39 KATE Rodriguez Julia tablet : Strength - 99 mg : ORAL Patient Dose: UNK. Lasix oral TueJun 16, 2020 12:39 KATE Rodriguez Julia tablet : Strength - 20 mg : ORAL Patient Dose: 20 mg Oral once a day. Protonix oral TueJun 16, 2020 12:45 KATE Rodriguez Julia tablet,delayed release (DR/EC) : Strength - 40 mg : ORAL Patient Dose: unk. Hospitalist History - Past Medical History Source: patient Cardiac: reports: CAD, HTN, Hyperlipidemia - Past Surgical History Past Surgical History: reports: Appendectomy, Tonsillectomy, Other (Aortic valve replacement, pacemaker) - Family History Family History: reports: no pertinent history - Social History Smoking Status: Former smoker Alcohol: reports: Occassional Drugs: reports: none Living Situation: With Family - Exam General Appearance: NAD, awake alert General - other findings: VS: BP 102/66, grasp 18, pulse 71, temp 98.2, 100% room air Eye: PERRL, anicteric sclera ENT: normocephalic atraumatic, moist mucosa Neck: supple, symmetric, no thyromegaly, no lymphadenopathy Heart: RRR, no murmur, no gallops, no rubs Respiratory: CTAB, no wheezes, no rales, no ronchi Gastrointestinal: soft, non-tender, non-distended, normal bowel sounds Psychiatric: normal affect, normal behavior Hospitalist Results - Labs Result Diagrams: 06/22/20 04:20 06/22/20 04:20 Lab results: Troponin I 0.044 ng/mL (< 0.028) H 06/16/20 12:37 Laboratory Tests 06/16/20 06/16/20 06/16/20 09:48 09:48 10:01 Hgb 8.7 L Hct 27.6 L Plt Count 288 PT 40.9 H INR 4.3 H* APTT 54.4 H Sodium 132 L Potassium 3.6 BUN 30 H Creatinine 1.43 H Estimated GFR (MDRD) 49 Glucose 133 H Creatine Kinase 229 H Troponin I 06/16/20 06/16/20 12:37 16:07 Hgb Hct Plt Count PT INR APTT Sodium Potassium BUN Creatinine Estimated GFR (MDRD) Glucose Creatine Kinase Troponin I 0.044 H 0.032 H - EKG Interpretation EKG: V paced 72 bpm Hospitalist H&P A/P - Problem (1) GI bleed Code(s): K92.2 - GASTROINTESTINAL HEMORRHAGE, UNSPECIFIED Status: Acute (2) Acute blood loss anemia Code(s): D62 - ACUTE POSTHEMORRHAGIC ANEMIA Status: Acute (3) ZAY (acute kidney injury) Code(s): N17.9 - ACUTE KIDNEY FAILURE, UNSPECIFIED Status: Acute (4) Elevated troponin Code(s): R79.89 - OTHER SPECIFIED ABNORMAL FINDINGS OF BLOOD CHEMISTRY Status : Acute (5) Elevated INR Code(s): R79.1 - ABNORMAL COAGULATION PROFILE Status: Acute - Plan Plan: GI bleed Consult GI PPI IV IV fluids Acute blood loss anemia Type and cross- no need to transfuse at this time Monitor serial hemoglobin and hematocrits Repeat CBC now to compare to earlier's level Elevated troponin Denied any chest pain or shortness of breath Continue to trend troponins Elevated INR Hold home Coumadin May need to reverse if patient is to have intervention from GI Patient states his goal INR at home was 2-3 Repeat labs in am ZAY Continue IV fluids Repeat labs in a.m. VTE prophylaxis with SCDs, hold anticoagulants due to bleeding and elevated INR GI prophylaxis with IV Protonix CODE STATUS: Full Surrogate decision-maker: Roberta, Patient discussed with Dr. Mir PT seen and examined will continue to monitor his hh. spoke with gi also. will give pt vit k. He had a capsule done on 01/27. Possible egd on tue or . vs stable. will continue iv fluids for now. lungs are clear on auscultation, cv s1s2 present no murmurs.
[2020-06-16 16:38] LABS: #Eosinphils 0.1 thou/uL (0.0-0.7); #Lymphocytes 1.3 thou/uL (1.20-3.40); #Monocytes 0.9 thou/uL (0.11-0.59); #Neutrophils 6.2 thou/uL (1.40-6.50); %Basophils 0.1 % (0.0-1.0); %Eosinophils 1.8 % (0.0-10.0); %Lymphocytes 15.1 % (21.0-51.0); %Monocytes 10.3 % (0.0-10.0); %Neutrophils 72.7 % (42.0-75.0); Hemoglobin 8.7 g/dL (14.0-18.0); Mean Corpuscular HGB CONC 32.8 g/dL (32.0-36.0); Mean Corpuscular Hemoglobin 29.6 pg (27.0-31.0); Mean Corpuscular Volume 90.3 fL (78.0-98.0); Platelet Count 252 thou/uL (130-400); RBC Distribution Width 15.4 % (11.5-14.5); Red Blood Cell (RBC) Count 2.95 mill/uL (4.70-6.10); White Blood Cell (WBC) Count 8.5 thou/uL (4.8-10.8)
[2020-06-16 16:40] LABS: Troponin I 0.032 ng/mL (< 0.028)
[2020-06-16] MEDS: Sodium Chloride 0.9% 1,000 ML IV SCH (17:21)
[2020-06-16] MEDS ORDERED: Phytonadione 10 MG/ML AMP PO SCH (17:30)
[2020-06-16 19:55] LABS: Troponin I 0.025 ng/mL (< 0.028)
[2020-06-16] MEDS: Pantoprazole 40 MG VIAL IVP SCH (21:27)
[2020-06-16 22:41] LABS: Hemoglobin 8.8 g/dL (14.0-18.0)
--- NOTE | 2020-06-16 23:38 | CON ---
DATE OF CONSULTATION: 06/16/2020 REASON FOR CONSULTATION: Anemia, possible GI bleed. CONSULTING PROVIDER: Nikki De La Fuente NP HISTORY OF PRESENT ILLNESS: The patient is a 74-year-old male with past medical history of mechanical heart valve, requiring chronic anticoagulation, gastrointestinal arteriovenous malformations, hypertension, GERD, osteoarthritis, and obscure GI bleeding, presenting with complaints of dizziness. He states that he was in his usual state of health after his last hospitalization when this morning he began to have the acute onset of increased dizziness, characterized as lightheadedness rather than vertigo. He also described increased aching of the muscles in his jaw, in his neck, in his mid lower back as well. He also noticed the appearance of a dark/black colored semi-solid stool over today that was difficult to clean and characterized as a [place] 4 consistency. Prior to this appearance of this semi-solid stool, he said he had been having constipation with no bowel movement for the last 2 days until this morning. In addition to the above symptoms, he also described increased generalized abdominal cramping, but described more as a discomfort rather than overt pain with no clear alleviating or exacerbating factors. With the appearance of his darker colored stool being similar to the dark stools he had in November of this year when he sustained a GI bleed, it prompted him to seek healthcare assistance at the [facility]. Currently, the patient states that he is feeling somewhat better with no complaints of nausea, vomiting, fevers, chills, hematemesis, hematochezia, dysphagia, odynophagia, or further constipation. Of note, the patient underwent EGD with push enteroscopy in November 2019, where the scope was advanced to approximately 170 cm past the incisors and other than findings of atrophic gastritis, there was no evidence of GI bleeding. A capsule endoscopy was performed on January 22, 2020, which showed possible clot/bleeding 7 minutes into the duodenum again suspicious for a GI bleed with recommendations to proceed with repeat upper endoscopy if his H and H dropped at a further date. REVIEW OF SYSTEMS: A 10-category review of systems was obtained with all responses negative except for the pertinent positives as listed in HPI. PAST MEDICAL HISTORY: As per HPI. PAST SURGICAL HISTORY: Appendectomy, tonsillectomy, aortic valve replacement, and pacemaker placement. FAMILY HISTORY: Denies any GI malignancies. SOCIAL HISTORY: Denies any tobacco or illicit drug use. Occasional alcohol use. OUTPATIENT MEDICATIONS: Reviewed. ALLERGIES: SULFA. PHYSICAL EXAMINATION: VITAL SIGNS: Temperature 98.3, pulse 80, blood pressure 123/60, respiratory rate 18, saturating 98% on room air. GENERAL: The patient was lying in bed, in no acute distress. Alert and oriented x4. HEENT: Normocephalic and atraumatic. NECK: Supple. No JVD or scleral icterus noted. CARDIOVASCULAR: Regular rate and rhythm with a 3/6 systolic murmur best heard at the left lower sternal border. No gallops or rubs auscultated. However, he did have a loud P2 click indicative of mechanical valve. RESPIRATORY: Clear to auscultation bilaterally with no discernible wheezes or rales. ABDOMEN: Normoactive bowel sounds. Soft, nondistended. Mild tenderness to palpation in the right upper quadrant and periumbilical regions. EXTREMITIES: Trace bilateral lower extremity edema extending to mid shins. LABORATORY DATA: CBC with a white blood cell count of 8.9, hemoglobin 8.7, hematocrit 27.6, platelets 288. INR 4.3. Chemistry with a sodium of 132, potassium 3.6, chloride 95, CO2 of 26, BUN 30, creatinine 1.43, glucose 133, AST 20, ALT 15, alkaline phosphatase 61, total bilirubin 0.7. IMAGING DATA: The patient underwent upper endoscopy with push enteroscopy in November 2019 with a scope was advanced to 170 cm past the incisors with no etiology of the patient's bleeding seen during that examination. Atrophic gastritis was visualized, but again no ulcerations or bleeding were associated with this finding. Capsule endoscopy was performed on January 22, 2020, which showed possible blood/clot formation at approximately 7 cm past the capsule entry into the duodenum concerning for possible GI bleeding source, although none was directly observed at the time of this study. ASSESSMENT AND PLAN: The patient is a 74-year-old male with past medical history of mechanical heart valve on chronic anticoagulations, gastrointestinal arteriovenous malformations, hypertension, gastroesophageal reflux disease, osteoarthritis, and overt gastrointestinal bleeding in November of 2019, presenting with melenic type stools concerning for repeat gastrointestinal bleeding in light of supratherapeutic INR. Upper gastrointestinal bleeding/melenic stools. The patient is presenting with a history of overt obscure GI bleeding in November 2019, where he underwent an upper endoscopy with no discernible bleeding source seen at that time. Capsule endoscopy performed; however, did show a possible bleeding source at approximately 7 cm upon entry into the duodenum. At this time, the possible bleeding source on capsule could be within the proximal to mid jejunum, but may be outside the reach of the standard EGD or push enteroscopy. In any case, the patient is also presenting with a supratherapeutic INR, which could be contributing to bleeding from any source and lend itself towards possible GI bleeding. Based on his prior history of obscure GI bleeding and the findings on the capsule endoscopy, repeat upper endoscopy with push enteroscopy is indicated, but would highly recommend reversing his coagulopathy prior to instrumentation. RECOMMENDATIONS: 1. We would recommend reversal of his anticoagulation with vitamin K in anticipation of EGD with push enteroscopy. 2. We would tentatively plan for EGD with push enteroscopy on , June 18. 3. Continue to monitor his H and H and transfuse as necessary to maintain an H and H of 7/21. 4. Continue to monitor clinically for signs of active GI bleeding. 5. We will place the patient on a clear liquid diet in case more urgent upper endoscopy is indicated. We will continue to monitor. Please call with any questions. Job ID: [id number]
[2020-06-17] MEDS: Sodium Chloride 0.9% 1,000 ML IV SCH (03:59)
[2020-06-17 04:49] LABS: #Basophils 0.1 thou/uL (0.0-0.2); #Eosinphils 0.4 thou/uL (0.0-0.7); #Lymphocytes 1.4 thou/uL (1.20-3.40); %Basophils 0.8 % (0.0-1.0); %Eosinophils 3.9 % (0.0-10.0); %Lymphocytes 14.2 % (21.0-51.0); %Monocytes 10.2 % (0.0-10.0); %Neutrophils 70.9 % (42.0-75.0); Hemoglobin 8.7 g/dL (14.0-18.0); Mean Corpuscular HGB CONC 31.9 g/dL (32.0-36.0); Mean Corpuscular Hemoglobin 28.8 pg (27.0-31.0); Mean Corpuscular Volume 90.2 fL (78.0-98.0); Mean Platelet Volume 7.3 fL (7.4-10.4); Platelet Count 267 thou/uL (130-400); RBC Distribution Width 15.6 % (11.5-14.5); Red Blood Cell (RBC) Count 3.01 mill/uL (4.70-6.10); White Blood Cell (WBC) Count 9.9 thou/uL (4.8-10.8)
[2020-06-17 04:59] LABS: INR-International Normal Ratio 2.9; PTT 44.6 sec (22.9-36.1); Prothrombin Time 29.9 sec (12.0-14.7)
[2020-06-17 05:16] LABS: Anion Gap 11 mmol/L (10-20); BUN (Urea Nitrogen) 20 mg/dL (8.4-25.7); Calc. Creatinine Clearance 94 mL/min (70-130); Calcium 8.3 mg/dL (7.8-10.44); Carbon Dioxide 24 mmol/L (23-31); Chloride 102 mmol/L (98-107); Estimated GFR-MDRD 84; Glucose 100 mg/dL (83-110); Potassium 4.1 mmol/L (3.5-5.1); Sodium 133 mmol/L (136-145)
[2020-06-17] MEDS ORDERED: Non-Formulary Item 1 EACH (Albuterol Sulfate [Ventolin Hfa] 2 PUFF) INH PRN (08:31)
[2020-06-17] MEDS ORDERED: PROVENTIL INHALER 6.7 G (200 INHALATIONS) INH SCH ×2 (08:45→09:15)
[2020-06-17] MEDS ORDERED: PROVENTIL INHALER 6.7 G (200 INHALATIONS) INH PRN (08:45)
[2020-06-17] MEDS: Pantoprazole 40 MG VIAL IVP SCH ×2 (09:00→20:42)
[2020-06-17] MEDS: Metoprolol Tartrate 25 MG TAB PO SCH ×2 (09:00→20:42)
[2020-06-17] MEDS: Aspirin Chewable 81 MG TAB PO SCH (09:00)
[2020-06-17] MEDS ORDERED: Albuterol 200 PUFF (6.7GM INHALER) INH SCH (09:15)
[2020-06-17] MEDS ORDERED: Phytonadione 10 MG/ML AMP PO SCH (09:45)
[2020-06-17 09:47] LABS: Troponin I 0.029 ng/mL (< 0.028)
--- NOTE | 2020-06-17 10:11 | PRG ---
DATE OF SERVICE: 06/17/2020 REASON FOR CONSULTATION: Anemia, possible GI bleed with melena. SUBJECTIVE: Overnight, the patient did have some mild abdominal discomfort in addition to having a larger dark/black semi-solid stool. Otherwise, there were no acute events or problems overnight. Currently, he denies any nausea, vomiting, fevers, chills, hematemesis, hematochezia, dysphagia, or odynophagia. OBJECTIVE: VITAL SIGNS: Temperature 97.5, pulse 80, blood pressure 170/79, respiratory rate 24, saturating 99% on room air. GENERAL: The patient is lying in bed, in no acute distress. Alert and oriented x4. CARDIOVASCULAR: Regular rate and rhythm with a 3/6 systolic murmur best heard at the left lower sternal border. RESPIRATORY: Clear to auscultation bilaterally. ABDOMEN: Normoactive bowel sounds. Soft, nondistended. Mild tenderness to palpation in the right upper quadrant. EXTREMITIES: Trace bilateral lower extremity edema extending to mid bset. LABORATORY DATA: CBC with a white blood cell count of 9.9, hemoglobin 8.7, hematocrit 27.2, platelets 267. Chemistry with a sodium of 133, potassium 4.1, chloride 102, CO2 of 24, BUN 20, creatinine 0.89, glucose 100. INR 2.9. IMAGING DATA: No current GI imaging is available for review. ASSESSMENT AND PLAN: The patient is a 74-year-old male with past medical history of mechanical aortic valve on chronic anticoagulation, history of gastrointestinal arteriovenous malformations, hypertension, gastroesophageal reflux disease, osteoarthritis, and overt obscure gastrointestinal bleeding in November 2019, presenting with melenic type stools concerning for repeat gastrointestinal bleeding in light of supratherapeutic INR. Upper gastrointestinal bleed/melenic stools: The patient is presenting with recent instrumentation in November 2019, where push enteroscopy did not discern a bleeding source at that time. Capsule endoscopy performed in January 2020, showed a possible bleeding source at approximately 7 minutes after entry into the duodenum concerning for GI bleeding source. At this time, the bleeding seen on the capsule could be within the mid proximal to mid jejunum and may be outside the region of standard eesophagogastroduodenoscopy or push enteroscopy. However, given this particular finding, repeat esophagogastroduodenoscopy with push enteroscopy is indicated and if negative, we will consider transferring the patient to [place] for small bowel enteroscopy. 1. Recommendation: a. Recommend reversal of his anticoagulation with vitamin K in anticipation of esophagogastroduodenoscopy with push enteroscopy tomorrow. b. Continue to trend his H and H and transfuse as necessary to maintain an H and H of 7/. c. Continue to monitor clinically for signs of active GI bleeding. d. We will place the patient on a clear liquid diet for today and n.p.o. at midnight in anticipation of procedure. e. Further recommendations to follow esophagogastroduodenoscopy. We will continue to follow. Please call with any questions. Job ID: [id number]
[2020-06-17 11:47] LABS: SARS-CoV-2 MS2 Positive; SARS-CoV-2 N Gene Negative; SARS-CoV-2 S Gene Negative; SARS-CoV-2 by NAA Not Detected (NotDetected); SARS-CoV-2 orf1ab Negative
[2020-06-17 13:47] LABS: Troponin I 0.028 ng/mL (< 0.028)
[2020-06-17 18:09] LABS: Troponin I 0.032 ng/mL (< 0.028)
[2020-06-17] MEDS: Acetaminophen 325 MG TAB PO PRN (18:13)
--- NOTE | 2020-06-17 22:23 | EKG ---
Test Reason : Blood Pressure : / mmHG Vent. Rate : 080 BPM Atrial Rate : 080 BPM P-R Int : 000 ms QRS Dur : 192 ms QT Int : 478 ms P-R-T Axes : 067 168 071 degrees QTc Int : 551 ms AV sequential or dual chamber electronic pacemaker When compared with ECG of 16-JUN-2020 12:26, (Unconfirmed) Vent. rate has increased BY 8 BPM Confirmed by Jeny GRANDE ([id number]) on 06/17/2020 10:23:48 PM Referred By: JUSTIN Confirmed By:Jeny GRANDE
[2020-06-18 04:40] LABS: #Basophils 0.1 thou/uL (0.0-0.2); #Eosinphils 0.4 thou/uL (0.0-0.7); #Monocytes 0.9 thou/uL (0.11-0.59); #Neutrophils 6.4 thou/uL (1.40-6.50); %Basophils 0.6 % (0.0-1.0); %Eosinophils 4.2 % (0.0-10.0); %Lymphocytes 11.1 % (21.0-51.0); %Monocytes 10.4 % (0.0-10.0); %Neutrophils 73.6 % (42.0-75.0); Hemoglobin 7.7 g/dL (14.0-18.0); Mean Corpuscular HGB CONC 31.2 g/dL (32.0-36.0); Mean Corpuscular Hemoglobin 28.3 pg (27.0-31.0); Mean Corpuscular Volume 90.7 fL (78.0-98.0); Mean Platelet Volume 6.9 fL (7.4-10.4); Platelet Count 245 thou/uL (130-400); RBC Distribution Width 16.6 % (11.5-14.5); Red Blood Cell (RBC) Count 2.73 mill/uL (4.70-6.10); White Blood Cell (WBC) Count 8.7 thou/uL (4.8-10.8)
[2020-06-18 04:47] LABS: INR-International Normal Ratio 1.7; PTT 35.7 sec (22.9-36.1); Prothrombin Time 19.7 sec (12.0-14.7)
[2020-06-18 05:02] LABS: Anion Gap 11 mmol/L (10-20); BUN (Urea Nitrogen) 16 mg/dL (8.4-25.7); Calc. Creatinine Clearance 83 mL/min (70-130); Calcium 8.3 mg/dL (7.8-10.44); Carbon Dioxide 26 mmol/L (23-31); Chloride 101 mmol/L (98-107); Estimated GFR-MDRD 73; Glucose 98 mg/dL (83-110); Potassium 4.2 mmol/L (3.5-5.1); Sodium 134 mmol/L (136-145)
[2020-06-18] MEDS ORDERED: PROPOFOL 200 MG/20 ML VIAL ONE (10:01)
[2020-06-18] MEDS ORDERED: Lidocaine 1% PF 5 ML VIAL ONE (10:01)
[2020-06-18] MEDS ORDERED: Promethazine HCl 25 MG/ML VIAL IM PRN (11:57)
[2020-06-18] MEDS ORDERED: Promethazine HCl 25 MG/ML VIAL SLOW IVP PRN (11:57)
[2020-06-18] MEDS ORDERED: Ondansetron HCl/PF 4 MG/2 ML Vial IVP PRN (11:57)
[2020-06-18] MEDS: Pantoprazole 40 MG VIAL IVP SCH ×2 (12:33→20:04)
[2020-06-18] MEDS: Metoprolol Tartrate 25 MG TAB PO SCH ×2 (12:33→19:58)
[2020-06-18] MEDS: Aspirin Chewable 81 MG TAB PO SCH (12:33)
--- NOTE | 2020-06-18 16:05 | OP ---
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 PROCEDURES: Esophagogastroduodenoscopy with push enteroscopy of the small bowel. INDICATIONS: 1. Melena, recurrent. 2. Acute blood loss anemia, recurrent. 3. Suspected obscure overt gastrointestinal bleeding, with recent history of capsule endoscopy showing possible hemorrhage in the proximal to mid small bowel. MEDICATIONS: See Anesthesia record. FINDINGS: After discussion of the risks, benefits, and alternatives of the procedure, informed consent was obtained and witnessed. Pre-endoscopic cardiopulmonary examination was satisfactory. Time-out was performed before sedation was achieved. Sedation was achieved with Anesthesia assistance in the endoscopy unit. A Pentax adult colonoscope was used to intubate the esophagus under direct visualization. The esophageal mucosa appeared normal throughout with a normal-appearing Z-line. The endoscope was advanced into the stomach. There was diffuse atrophy of the gastric mucosa as well as diffuse areas of submucosal hemorrhage as well as overall friability and the area in the gastric cardia was particularly friable with slow oozing diffusely from this area, though no significant amount of blood within the stomach. There was no discrete lesion identified, but rather overall diffuse friability of the gastric mucosa. The endoscope was advanced through the pylorus and it was advanced down the small bowel as far as it could go to 160 cm examined of the proximal small bowel, which I estimate to be in the proximal to mid jejunum. The small bowel mucosa appeared completely normal was examined. There was no evidence of any old blood or active bleeding and there was no bleeding lesion or other mucosal abnormality identified to the extent examined. At this point, the colonoscope was completely removed and the patient allowed to recover. The patient tolerated the procedure well. There were no immediate postprocedure complications. IMPRESSION: 1. Diffuse gastric atrophy with submucosal hemorrhage and friability, with area of mild oozing in the area of the gastric cardia. 2. Normal small bowel mucosa to 160 cm examined. 3. Normal esophagus. RECOMMENDATION: 1. Advance diet. 2. Minimize anticoagulation if possible. 3. Trend H and H tomorrow. 4. Continue with PPI therapy. Job ID: [id number]
--- NOTE | 2020-06-18 16:20 | PDOC.HOSPP ---
- Subjective Encounter Date: 06/17/20 Encounter Time: 16:19 Subjective: pt up in bed no complains - Objective Vital Signs & Weight: Vital Signs (12 hours) Temp Pulse Resp BP Pulse Ox 06/18/20 15:43 97.5 F L 74 16 129/58 L 96 06/18/20 12:20 80 22 H 142/76 H 99 06/18/20 07:49 97.8 F 80 15 164/88 H 97 Weight Weight 194 lb 12.8 oz I&O: 06/17/20 06/18/20 06/19/20 06:59 06:59 06:59 Intake Total 1280 1440 Output Total 950 450 Balance 330 990 Result Diagrams: 06/18/20 04:21 06/18/20 04:21 Hospitalist ROS - Review of Systems Cardiovascular: denies: chest pain, palpitations, orthopnea, paroxysmal noc. dyspnea, edema, light headedness, other Gastrointestinal: denies: nausea, vomiting, abdominal pain, diarrhea, constipation, melena, hematochezia, other Genitourinary: denies: dysuria, frequency, incontinence, hematuria, retention, other - Medication Medications: Active Medications Generic Name Dose Route Start Last Admin Trade Name Freq PRN Reason Stop Dose Admin Acetaminophen 325 mg 06/17/20 17:39 06/17/20 18:13 Tylenol PO 325 mg Q6H PRN Administration Headache/Fever or Pain Aspirin 81 mg 06/17/20 09:00 06/18/20 12:33 Aspirin Chewable PO 81 mg DAILY ELLE Administration Metoprolol Tartrate 25 mg 06/17/20 09:00 06/18/20 12:33 Lopressor PO 25 mg BID ELLE Administration Pantoprazole Sodium 40 mg 06/16/20 21:00 06/18/20 12:33 Protonix IVP 40 mg BID ELLE Administration Sodium Chloride 10 ml 06/16/20 16:17 06/16/20 17:26 Flush - Normal Saline IVF 10 ml PRN PRN Administration Saline Flush - Exam Neck: negative: supple, symmetric, no JVD, no thyromegaly, no lymphadenopathy, no carotid bruit, JVD Heart: negative: RRR, no murmur, no gallops, no rubs, normal peripheral pulses, irregular, diminshed peripheral pulses, murmur present, II/IV, III/IV Respiratory: negative: CTAB, no wheezes, no rales, no ronchi, normal chest expansion, no tachypnea, normal percussion, rales, rhonchi, tachypneic, wheezes Hosp A/P (1) GI bleed Code(s): K92.2 - GASTROINTESTINAL HEMORRHAGE, UNSPECIFIED Status: Acute (2) Acute blood loss anemia Code(s): D62 - ACUTE POSTHEMORRHAGIC ANEMIA Status: Acute (3) ZAY (acute kidney injury) Code(s): N17.9 - ACUTE KIDNEY FAILURE, UNSPECIFIED Status: Acute (4) Elevated troponin Code(s): R79.89 - OTHER SPECIFIED ABNORMAL FINDINGS OF BLOOD CHEMISTRY Status : Acute (5) Elevated INR Code(s): R79.1 - ABNORMAL COAGULATION PROFILE Status: Acute - Plan will continue to trend hh. gi to do a egd in am. pt had some chest pain. ekg paced, trops mild elevation. may need help from cardio in regards to keep him off blood thinners.
--- NOTE | 2020-06-18 16:41 | PDOC.HOSPP ---
- Subjective Encounter Date: 06/18/20 Encounter Time: 15:00 Subjective: pt up in bed no complains - Objective Vital Signs & Weight: Vital Signs (12 hours) Temp Pulse Resp BP Pulse Ox 06/18/20 15:43 97.5 F L 74 16 129/58 L 96 06/18/20 12:20 80 22 H 142/76 H 99 06/18/20 07:49 97.8 F 80 15 164/88 H 97 Weight Weight 194 lb 12.8 oz I&O: 06/17/20 06/18/20 06/19/20 06:59 06:59 06:59 Intake Total 1280 1440 Output Total 950 450 Balance 330 990 Result Diagrams: 06/18/20 04:21 06/18/20 04:21 Hospitalist ROS - Review of Systems Respiratory: denies: cough, dry, shortness of breath, hemoptysis, SOB with excertion, pleuritic pain, sputum, wheezing, other Cardiovascular: denies: chest pain, palpitations, orthopnea, paroxysmal noc. dyspnea, edema, light headedness, other Gastrointestinal: denies: nausea, vomiting, abdominal pain, diarrhea, constipation, melena, hematochezia, other - Medication Medications: Active Medications Generic Name Dose Route Start Last Admin Trade Name Freq PRN Reason Stop Dose Admin Acetaminophen 325 mg 06/17/20 17:39 06/17/20 18:13 Tylenol PO 325 mg Q6H PRN Administration Headache/Fever or Pain Aspirin 81 mg 06/17/20 09:00 06/18/20 12:33 Aspirin Chewable PO 81 mg DAILY ELLE Administration Metoprolol Tartrate 25 mg 06/17/20 09:00 06/18/20 12:33 Lopressor PO 25 mg BID ELLE Administration Pantoprazole Sodium 40 mg 06/16/20 21:00 06/18/20 12:33 Protonix IVP 40 mg BID ELLE Administration Sodium Chloride 10 ml 06/16/20 16:17 06/16/20 17:26 Flush - Normal Saline IVF 10 ml PRN PRN Administration Saline Flush - Exam Neck: negative: supple, symmetric, no JVD, no thyromegaly, no lymphadenopathy, no carotid bruit, JVD Heart: negative: RRR, no murmur, no gallops, no rubs, normal peripheral pulses, irregular, diminshed peripheral pulses, murmur present, II/IV, III/IV Respiratory: negative: CTAB, no wheezes, no rales, no ronchi, normal chest expansion, no tachypnea, normal percussion, rales, rhonchi, tachypneic, wheezes Hosp A/P (1) GI bleed Code(s): K92.2 - GASTROINTESTINAL HEMORRHAGE, UNSPECIFIED Status: Acute (2) Acute blood loss anemia Code(s): D62 - ACUTE POSTHEMORRHAGIC ANEMIA Status: Acute (3) ZAY (acute kidney injury) Code(s): N17.9 - ACUTE KIDNEY FAILURE, UNSPECIFIED Status: Acute (4) Elevated troponin Code(s): R79.89 - OTHER SPECIFIED ABNORMAL FINDINGS OF BLOOD CHEMISTRY Status : Acute (5) Elevated INR Code(s): R79.1 - ABNORMAL COAGULATION PROFILE Status: Acute - Plan will continue to trend hh. gi to do a egd in am. pt had some chest pain. ekg paced, trops mild elevation. may need help from cardio in regards to keep him off blood thinners. 06/18 pt underwent a egd which indicated diffuse gastic atrophy and submucosal hemorrhage and friability. will hold AC for now but pt has a mechanical valve.
[2020-06-18] MEDS: Acetaminophen 325 MG TAB PO PRN (20:07)
[2020-06-19 05:23] LABS: Anion Gap 12 mmol/L (10-20); BUN (Urea Nitrogen) 18 mg/dL (8.4-25.7); Calc. Creatinine Clearance 80 mL/min (70-130); Calcium 8.5 mg/dL (7.8-10.44); Carbon Dioxide 22 mmol/L (23-31); Chloride 103 mmol/L (98-107); Estimated GFR-MDRD 70; Glucose 109 mg/dL (83-110); Potassium 4.2 mmol/L (3.5-5.1); Sodium 133 mmol/L (136-145)
[2020-06-19 08:27] LABS: #Eosinphils 0.3 thou/uL (0.0-0.7); #Lymphocytes 0.9 thou/uL (1.20-3.40); #Neutrophils 8.8 thou/uL (1.40-6.50); %Basophils 0.1 % (0.0-1.0); %Eosinophils 2.5 % (0.0-10.0); %Lymphocytes 8.2 % (21.0-51.0); %Monocytes 9.2 % (0.0-10.0); %Neutrophils 79.9 % (42.0-75.0); Hemoglobin 8.2 g/dL (14.0-18.0); Mean Corpuscular HGB CONC 30.9 g/dL (32.0-36.0); Mean Corpuscular Hemoglobin 28.5 pg (27.0-31.0); Mean Corpuscular Volume 92.1 fL (78.0-98.0); Mean Platelet Volume 7.1 fL (7.4-10.4); Platelet Count 262 thou/uL (130-400); RBC Distribution Width 16.4 % (11.5-14.5); Red Blood Cell (RBC) Count 2.86 mill/uL (4.70-6.10)
[2020-06-19 08:28] LABS: INR-International Normal Ratio 1.3; Prothrombin Time 16.5 sec (12.0-14.7)
[2020-06-19 08:43] LABS: ALT (SGPT) 13 U/L (8-55); AST (SGOT) 20 U/L (5-34); Albumin 3.8 g/dL (3.4-4.8); Alkaline Phosphatase 59 U/L (40-110); Anion Gap 14 mmol/L (10-20); BUN (Urea Nitrogen) 17 mg/dL (8.4-25.7); Bilirubin, Total 0.6 mg/dL (0.2-1.2); Calc. Creatinine Clearance 82 mL/min (70-130); Calcium 8.3 mg/dL (7.8-10.44); Carbon Dioxide 20 mmol/L (23-31); Chloride 103 mmol/L (98-107); Estimated GFR-MDRD 72; Globulin 2.4 g/dL (2.4-3.5); Glucose 108 mg/dL (83-110); Potassium 4.1 mmol/L (3.5-5.1); Protein, Total 6.2 g/dL (5.8-8.1); Sodium 133 mmol/L (136-145)
[2020-06-19] MEDS: Aspirin Chewable 81 MG TAB PO SCH (09:15)
[2020-06-19] MEDS: Metoprolol Tartrate 25 MG TAB PO SCH ×2 (09:15→20:37)
[2020-06-19] MEDS: Pantoprazole 40 MG VIAL IVP SCH ×2 (09:16→20:37)
[2020-06-19] MEDS ORDERED: Non-Formulary Item 1 EACH (Ramipril [Ramipril] 10 MG) PO SCH (09:38)
[2020-06-19] MEDS ORDERED: NIFEdipine XL 30 MG TAB PO SCH (09:45)
--- NOTE | 2020-06-19 13:01 | CON ---
DATE OF CONSULTATION: HISTORY OF PRESENT ILLNESS: The patient is a pleasant 74-year-old gentleman, who presents with weakness and dark stool. The patient was seen in the year 1999. He was found to have severe aortic stenosis. He underwent an aortic valve replacement. The patient had great difficulty with dyspnea. He underwent a followup evaluation at [facility]. He was found to have mild CAD with a 30% RCA lesion and a 20% circumflex lesion. The patient has been admitted with diastolic heart failure. He was last hospitalized a week ago and diuresed with Lasix. He was in his usual state of health when he noted having dark stool. He reported being very weak. He denied having any chest discomfort. PAST MEDICAL HISTORY: Significant for, 1. Aortic stenosis. 2. Coronary artery disease. 3. Hypertension. 4. Dyslipidemia. 5. History of pacemaker placement. 6. Paroxysmal atrial fibrillation. 7. He has had cauterized AV malformations. PAST SURGICAL HISTORY: He has had an aortic valve replacement, appendectomy, and carpal tunnel surgery. SOCIAL HISTORY: The patient reports having a marked increase in alcohol consumption. FAMILY HISTORY: No strong family history of coronary artery disease. MEDICATIONS: On admission include; 1. Ramipril 10 b.i.d. 2. Prilosec 20 daily. 3. Nifedipine 30 daily. 4. Metoprolol 25 b.i.d. 5. Aspirin 81 daily. 6. Praluent 75 mg twice a month. 7. Coumadin 5 mg alternating with 2.5 mg Tuesday, Tuesday, and Tuesday and 2.5 mg Tuesday, , Tuesday, and Tuesday. REVIEW OF SYSTEMS: Ten-point system otherwise unremarkable. PHYSICAL EXAMINATION: GENERAL: Pale gentleman, in no acute distress. VITAL SIGNS: Blood pressure 139/77. NECK: Showed no jugular venous distention. LUNGS: Clear to auscultation. HEART: Regular rate and rhythm. Normal S1 and S2 with a mitral valve click and a 2/6 systolic murmur. ABDOMEN: Distended. EXTREMITIES: Showed moderate bilateral edema. VASCULAR: Radial pulse are 2+. LABORATORY DATA: White blood cell count 11.0, hemoglobin 8.2, hematocrit 26.4, and his platelets are 262. Sodium is 133, potassium 4.1, chloride 103, bicarbonate 20, BUN 17, and creatinine 1.02. His INR was 2.9. IMAGING DATA: EKG revealed electronic ventricular pacemaker. IMPRESSION: 1. Gastrointestinal hemorrhage. 2. History of aortic valve replacement, mechanical. 3. Hypertension. 4. History of pacemaker placement. 5. Dyslipidemia. 6. Mild coronary artery disease. 7. Ethanol abuse. PLAN: This patient presents with a GI hemorrhage and has a mechanical valve. Unfortunately, he has received vitamin K. He needs to be restarted on Coumadin. His INR was slightly elevated. We will try to obtain a lower therapeutic INR of 2 to 2.5. The patient has only mild CAD and may benefit from being taken off his aspirin. It is imperative this patient discontinued his excessive use of alcohol. We will diurese the patient with IV Lasix. We will follow this patient with you through his hospitalization. Job ID: [id number]
--- NOTE | 2020-06-19 14:44 | PDOC.HOSPP ---
- Subjective Encounter Date: 06/19/20 Encounter Time: 09:00 Subjective: pt up in bed no complains - Objective Vital Signs & Weight: Vital Signs (12 hours) Temp Pulse Resp BP BP BP Pulse Ox 06/19/20 11:00 97.6 F 82 20 139/77 96 06/19/20 10:34 80 179/80 H 06/19/20 10:32 53 L 16 95 06/19/20 07:56 97.7 F 75 16 178/85 H 95 06/19/20 03:33 98.0 F 77 18 146/73 H 95 Weight Weight 194 lb 12.8 oz I&O: 06/18/20 06/19/20 06/20/20 06:59 06:59 06:59 Intake Total 1440 1490 Output Total 450 Balance 990 1490 Result Diagrams: 06/19/20 08:13 06/19/20 08:13 Hospitalist ROS - Review of Systems Cardiovascular: denies: chest pain, palpitations, orthopnea, paroxysmal noc. dyspnea, edema, light headedness, other Gastrointestinal: denies: nausea, vomiting, abdominal pain, diarrhea, constipation, melena, hematochezia, other Genitourinary: denies: dysuria, frequency, incontinence, hematuria, retention, other - Medication Medications: Active Medications Generic Name Dose Route Start Last Admin Trade Name Freq PRN Reason Stop Dose Admin Acetaminophen 325 mg 06/17/20 17:39 06/18/20 20:07 Tylenol PO 325 mg Q6H PRN Administration Headache/Fever or Pain Albuterol Sulfate 2 puff 06/17/20 08:45 06/19/20 10:32 Proventil Hfa INH 2 puff ASDIR PRN Administration SOB Metoprolol Tartrate 25 mg 06/17/20 09:00 06/19/20 09:15 Lopressor PO 25 mg BID ELLE Administration Pantoprazole Sodium 40 mg 06/16/20 21:00 06/19/20 09:16 Protonix IVP 40 mg BID LELE Administration Sodium Chloride 10 ml 06/16/20 16:17 06/16/20 17:26 Flush - Normal Saline IVF 10 ml PRN PRN Administration Saline Flush - Exam Heart: negative: RRR, no murmur, no gallops, no rubs, normal peripheral pulses, irregular, diminshed peripheral pulses, murmur present, II/IV, III/IV Respiratory: negative: CTAB, no wheezes, no rales, no ronchi, normal chest expansion, no tachypnea, normal percussion, rales, rhonchi, tachypneic, wheezes Gastrointestinal: negative: soft, non-tender, non-distended, normal bowel sounds , no palpable masses, no hepatomegaly, no splenomegaly, no bruit, no guarding, no rigidity, tender to palpation, distended, diminished bowl sounds, voluntary guarding Hosp A/P (1) GI bleed Code(s): K92.2 - GASTROINTESTINAL HEMORRHAGE, UNSPECIFIED Status: Acute (2) Acute blood loss anemia Code(s): D62 - ACUTE POSTHEMORRHAGIC ANEMIA Status: Acute (3) ZAY (acute kidney injury) Code(s): N17.9 - ACUTE KIDNEY FAILURE, UNSPECIFIED Status: Acute (4) Elevated troponin Code(s): R79.89 - OTHER SPECIFIED ABNORMAL FINDINGS OF BLOOD CHEMISTRY Status : Acute (5) Elevated INR Code(s): R79.1 - ABNORMAL COAGULATION PROFILE Status: Acute - Plan will continue to trend hh. gi to do a egd in am. pt had some chest pain. ekg paced, trops mild elevation. may need help from cardio in regards to keep him off blood thinners. 06/18 pt underwent a egd which indicated diffuse gastic atrophy and submucosal hemorrhage and friability. will hold AC for now but pt has a mechanical valve. 06/19 pt's hh is stable. will ask gi if ok to start coumadin. He does have a mechanical valve.
[2020-06-19] MEDS: Warfarin Sodium 5 MG TAB PO SCH (16:37)
[2020-06-19] MEDS ORDERED: Iron, Sodium Ferric Gluconate 250 MG in Sodium Chloride 0.9% 100 ML IVPB SCH (18:00)
[2020-06-19] MEDS: Iron, Sodium Ferric Gluconate 250 MG in Sodium Chloride 0.9% 100 ML IVPB SCH (20:36)
[2020-06-19] MEDS: Acetaminophen 325 MG TAB PO PRN (20:37)
[2020-06-20 04:32] LABS: INR-International Normal Ratio 1.4; PTT 47.2 sec (22.9-36.1); Prothrombin Time 16.6 sec (12.0-14.7)
[2020-06-20 05:13] LABS: #Basophils 0.1 thou/uL (0.0-0.2); #Eosinphils 0.1 thou/uL (0.0-0.7); #Lymphocytes 0.9 thou/uL (1.20-3.40); #Neutrophils 11.9 thou/uL (1.40-6.50); %Basophils 0.3 % (0.0-1.0); %Eosinophils 0.7 % (0.0-10.0); %Monocytes 13.6 % (0.0-10.0); %Neutrophils 79.4 % (42.0-75.0); Hemoglobin 7.7 g/dL (14.0-18.0); Mean Corpuscular HGB CONC 32.6 g/dL (32.0-36.0); Mean Corpuscular Hemoglobin 29.1 pg (27.0-31.0); Mean Corpuscular Volume 89.1 fL (78.0-98.0); Mean Platelet Volume 6.9 fL (7.4-10.4); Platelet Count 235 thou/uL (130-400); RBC Distribution Width 16.1 % (11.5-14.5); Red Blood Cell (RBC) Count 2.64 mill/uL (4.70-6.10)
--- NOTE | 2020-06-20 06:30 | PRG ---
DATE OF SERVICE: 06/19/2020 SUBJECTIVE: The patient is having no further bleeding. He is admitted with acute anemia and supratherapeutic INR. He has had issues with obscure GI bleeding in the past. Apparently, he was drinking a fair amount of moonshine at home. His endoscopy here showed normal small bowel. In the small bowel in the past, there was some bleeding, but no obvious site noted. He did have a very diffuse friability of the stomach, questionable portal gastropathy. Previous endoscopies include push enteroscopy and EGD in 2019 with only atrophic gastritis, capsule endoscopy in January 2020, possible GI bleeding 7 minutes into the duodenum, and previous colonoscopy. He is on chronic anticoagulation for a valve replacement. MEDICATIONS: 1. . 2. Lasix. 3. Metoprolol. 4. Procardia. 5. Protonix. 6. Ramipril. 7. He has been restarted on Coumadin. OBJECTIVE: VITAL SIGNS: Temperature is 98, pulse 85, blood pressure 123/59. ABDOMEN: Soft, nontender. REVIEW OF SYSTEMS: Please note, the patient has significant fatigue. LABORATORY DATA: Today, white count 11.0; hemoglobin is 8.2, up from 7.7; platelet count 262. INR is 1.3, it was actually 4.3 when he came in on 06/16. Comprehensive metabolic profile, sodium 133. Liver function tests are normal. Troponins were negative. Ferritin in March was normal. TIBC was normal. Iron was normal. B12 in November was normal. Folate was normal. Previous abdomen and pelvis CAT scan on 11/22/2019, no acute abnormality and no small bowel abnormalities. ASSESSMENT: 1. Gastrointestinal hemorrhage, likely related to some issues of portal gastropathy and with over anticoagulation with Coumadin. 2. Apparently patient has also been drinking some type of moonshine at home. This probably is interfering with his Coumadin levels. RECOMMENDATIONS: 1. Continue PPI. 2. Avoid alcohol. 3. If the patient cannot do Eliquis, his INR should be monitored more closely on Coumadin. I have expressed to him that toxicity of this medication with alcohol use and without following dietary recommendations. He is aware of these. He has been on it for some time. Job ID: [id number]
[2020-06-20] MEDS: Metoprolol Tartrate 25 MG TAB PO SCH ×2 (09:22→20:12)
[2020-06-20] MEDS: NIFEdipine XL 30 MG TAB PO SCH (09:22)
[2020-06-20] MEDS: Ramipril 5 MG CAP PO SCH (09:22)
[2020-06-20] MEDS: Furosemide 40 MG/4 ML VIAL SLOW IVP SCH (09:22)
[2020-06-20] MEDS: Pantoprazole 40 MG VIAL IVP SCH ×2 (09:23→20:12)
[2020-06-20] MEDS: Iron, Sodium Ferric Gluconate 250 MG in Sodium Chloride 0.9% 100 ML IVPB SCH (10:32)
[2020-06-20] MEDS: Acetaminophen 325 MG TAB PO PRN (10:34)
[2020-06-20] MEDS: Warfarin Sodium 5 MG TAB PO SCH (17:01)
--- NOTE | 2020-06-20 17:02 | PRG ---
DATE OF SERVICE: 06/20/2020 SUBJECTIVE: Mr. Hardy has had no bleeding. He has received IV iron. Medications reviewed. He continues on Protonix b.i.d. OBJECTIVE: VITAL SIGNS: Temperature is 98, pulse 75, blood pressure 118/56. GENERAL: The patient is resting comfortably. He is eating without complaints. No shortness of breath or dyspnea. ASSESSMENT AND PLAN: 1. Gastrointestinal hemorrhage, likely related to issues of portal hypertensive gastropathy as noted on the esophagogastroduodenoscopy with supratherapeutic INR. 2. Ongoing alcohol abuse. 3. Cardiac valve replacement. He has to stay on Coumadin. I agree with slowly advancing this in the outpatient setting. I recommended again he not drink alcohol. We will sign off at this time. If I can be of any further assistance in the patient's care, please do not hesitate to contact me. Job ID: [id number]
--- NOTE | 2020-06-20 17:14 | PDOC.HOSPP ---
- Subjective Encounter Date: 06/20/20 Encounter Time: 17:07 Subjective: pt up in chair has some swelling to left hand. - Objective Vital Signs & Weight: Vital Signs (12 hours) Temp Pulse Resp BP BP Pulse Ox 06/20/20 15:35 98.2 F 75 18 118/56 L 96 06/20/20 11:10 97.8 F 80 18 118/56 L 94 L 06/20/20 07:55 84 16 93 L 06/20/20 07:10 98.1 F 76 16 124/60 94 L Weight Weight 194 lb 12.8 oz I&O: 06/19/20 06/20/20 06/21/20 06:59 06:59 06:59 Intake Total 1490 480 Balance 1490 480 Result Diagrams: 06/20/20 04:10 06/19/20 08:13 Hospitalist ROS - Review of Systems Respiratory: denies: cough, dry, shortness of breath, hemoptysis, SOB with excertion, pleuritic pain, sputum, wheezing, other Cardiovascular: denies: chest pain, palpitations, orthopnea, paroxysmal noc. dyspnea, edema, light headedness, other Skin: reports: other - Medication Medications: Active Medications Generic Name Dose Route Start Last Admin Trade Name Freq PRN Reason Stop Dose Admin Acetaminophen 325 mg 06/17/20 17:39 06/20/20 10:34 Tylenol PO 325 mg Q6H PRN Administration Headache/Fever or Pain Albuterol Sulfate 2 puff 06/17/20 08:45 06/19/20 10:32 Proventil Hfa INH 2 puff ASDIR PRN Administration SOB Albuterol/Ipratropium 3 ml 06/19/20 16:14 06/20/20 07:55 Duoneb NEB 3 ml [id number] PRN Administration SOB &/or Wheezing Furosemide 40 mg 06/20/20 09:00 06/20/20 09:22 Lasix SLOW IVP 40 mg DAILY ELLE Administration Metoprolol Tartrate 25 mg 06/17/20 09:00 06/20/20 09:22 Lopressor PO 25 mg BID ELLE Administration Nifedipine 30 mg 06/20/20 09:00 06/20/20 09:22 Procardia Xl PO 30 mg DAILY ELLE Administration Pantoprazole Sodium 40 mg 06/16/20 21:00 06/20/20 09:23 Protonix IVP 40 mg BID ELLE Administration Ramipril 10 mg 06/20/20 09:00 06/20/20 09:22 Altace PO 10 mg DAILY ELLE Administration Sodium Chloride 10 ml 06/16/20 16:17 06/16/20 17:26 Flush - Normal Saline IVF 10 ml PRN PRN Administration Saline Flush - Exam Neck: negative: supple, symmetric, no JVD, no thyromegaly, no lymphadenopathy, no carotid bruit, JVD Heart: negative: RRR, no murmur, no gallops, no rubs, normal peripheral pulses, irregular, diminshed peripheral pulses, murmur present, II/IV, III/IV Respiratory: negative: CTAB, no wheezes, no rales, no ronchi, normal chest expansion, no tachypnea, normal percussion, rales, rhonchi, tachypneic, wheezes Gastrointestinal: negative: soft, non-tender, non-distended, normal bowel sounds , no palpable masses, no hepatomegaly, no splenomegaly, no bruit, no guarding, no rigidity, tender to palpation, distended, diminished bowl sounds, voluntary guarding Extremities: 1+ LE edema Extremities - other findings: mild left hand erythema Hosp A/P (1) GI bleed Code(s): K92.2 - GASTROINTESTINAL HEMORRHAGE, UNSPECIFIED Status: Acute (2) Acute blood loss anemia Code(s): D62 - ACUTE POSTHEMORRHAGIC ANEMIA Status: Acute (3) ZAY (acute kidney injury) Code(s): N17.9 - ACUTE KIDNEY FAILURE, UNSPECIFIED Status: Acute (4) Elevated troponin Code(s): R79.89 - OTHER SPECIFIED ABNORMAL FINDINGS OF BLOOD CHEMISTRY Status : Acute (5) Elevated INR Code(s): R79.1 - ABNORMAL COAGULATION PROFILE Status: Acute - Plan will continue to trend hh. gi to do a egd in am. pt had some chest pain. ekg paced, trops mild elevation. may need help from cardio in regards to keep him off blood thinners. 06/18 pt underwent a egd which indicated diffuse gastic atrophy and submucosal hemorrhage and friability. will hold AC for now but pt has a mechanical valve. 06/19 pt's hh is stable. will ask gi if ok to start coumadin. He does have a mechanical valve. 06/20 will increase coumadin to 10mg daily. cardiology wants pt to be in the hospital till his inr is 2.0. given his recent friable pt has been advised to stop drinking alcohol. He has mild elevated wbc and his left hand has some mild erythema will start pt on keflex. will also order UA.
[2020-06-20 17:15] LABS: Bacteria/HPF None Seen HPF (None Seen); Bilirubin Negative (Negative); Blood, Urine Negative (Negative); Clarity Clear (Clear); Glucose, Urine (Dipstick) Normal (Negative); Ketone, Urine Negative (Negative); Leukocyte Negative Leu/uL (Negative); Nitrite Negative (Negative); Protein, Urine (Dipstick) Negative (Neg-Trace); RBC/HPF 0-3 HPF (0-3); Specific Gravity, Urine 1.015 (1.002-1.036); Squamous Epithelial None Seen HPF (0-3); Urobilinogen Normal mg/dL (Less than 2); WBC/HPF 0-3 HPF (0-3); pH, Urine 5.5 (5.0-9.0)
[2020-06-20 17:21] LABS: Urine Culture Reflex No No
[2020-06-20] MEDS ORDERED: Warfarin Sodium 2.5 MG TAB PO SCH (17:30)
[2020-06-20] MEDS: Cephalexin 250 MG CAP PO SCH (20:12)
[2020-06-21 04:09] LABS: Anion Gap 13 mmol/L (10-20); BUN (Urea Nitrogen) 14 mg/dL (8.4-25.7); Calc. Creatinine Clearance 85 mL/min (70-130); Calcium 8.4 mg/dL (7.8-10.44); Carbon Dioxide 24 mmol/L (23-31); Chloride 102 mmol/L (98-107); Estimated GFR-MDRD 75; Glucose 110 mg/dL (83-110); Potassium 3.5 mmol/L (3.5-5.1); Sodium 135 mmol/L (136-145)
[2020-06-21 04:11] LABS: INR-International Normal Ratio 1.4; Prothrombin Time 17.2 sec (12.0-14.7)
[2020-06-21 04:23] LABS: Band 1 % (5-11); Eosinophils 4 % (0-10); Hypochromia SLIGHT = 6-15 cells (100X) (0-5/hpf); Lymphocytes 6 % (21-51); MDiff Complete? YES; Mean Corpuscular HGB CONC 31.7 g/dL (32.0-36.0); Mean Corpuscular Hemoglobin 28.4 pg (27.0-31.0); Mean Corpuscular Volume 89.6 fL (78.0-98.0); Monocytes 8 % (0-10); Platelet Count 283 thou/uL (130-400); Platelet Morphology Comment Appears Adequate; Polychromasia SLIGHT = 2-3 cells (100X) (0-2/hpf); RBC Distribution Width 16.4 % (11.5-14.5); Red Blood Cell (RBC) Count 2.82 mill/uL (4.70-6.10); White Blood Cell (WBC) Count 12.8 thou/uL (4.8-10.8)
[2020-06-21] MEDS: Ramipril 5 MG CAP PO SCH (09:38)
[2020-06-21] MEDS: Furosemide 40 MG/4 ML VIAL SLOW IVP SCH (09:38)
[2020-06-21] MEDS: NIFEdipine XL 30 MG TAB PO SCH (09:38)
[2020-06-21] MEDS: Cephalexin 250 MG CAP PO SCH ×4 (09:38→20:25)
[2020-06-21] MEDS: Pantoprazole 40 MG VIAL IVP SCH ×2 (09:39→20:26)
[2020-06-21] MEDS: Metoprolol Tartrate 25 MG TAB PO SCH ×2 (09:40→20:26)
--- NOTE | 2020-06-21 15:49 | EKG ---
Test Reason : Blood Pressure : / mmHG Vent. Rate : 072 BPM Atrial Rate : 072 BPM P-R Int : 194 ms QRS Dur : 188 ms QT Int : 496 ms P-R-T Axes : 070 243 074 degrees QTc Int : 543 ms Atrial-sensed ventricular-paced rhythm Abnormal ECG Confirmed by VERONICA REYNOSO DO ([id number]), general expeditor LATRICE MURRAY ([id number] on 06/21/2020 3:48:57 PM Referred By: Confirmed By:VERONICA REYNOSO DO
[2020-06-21] MEDS: Warfarin Sodium 5 MG TAB PO SCH (16:41)
--- NOTE | 2020-06-21 21:59 | PDOC.HOSPP ---
- Subjective Encounter Date: 06/21/20 Encounter Time: 10:00 Subjective: no overnight events. this morning, feeling well and has no complaints. Changed diet to low vitamin K diet. - Objective Vital Signs & Weight: Vital Signs (12 hours) Temp Pulse Resp BP Pulse Ox 06/21/20 17:05 83 20 06/21/20 15:50 98.1 F 72 18 128/60 97 06/21/20 12:30 97.6 F 81 16 114/61 96 Weight Weight 194 lb 3.2 oz I&O: 06/20/20 06/21/20 06/22/20 06:59 06:59 06:59 Intake Total 480 1560 1280 Output Total 1400 2200 Balance 480 160 -920 Result Diagrams: 06/21/20 03:44 06/21/20 03:44 Hospitalist ROS - Review of Systems Constitutional: denies: chills, sweats Respiratory: denies: cough, shortness of breath Gastrointestinal: denies: melena, hematochezia Genitourinary: denies: hematuria - Medication Medications: Active Medications Generic Name Dose Route Start Last Admin Trade Name Freq PRN Reason Stop Dose Admin Acetaminophen 325 mg 06/17/20 17:39 06/20/20 10:34 Tylenol PO 325 mg Q6H PRN Administration Headache/Fever or Pain Albuterol Sulfate 2 puff 06/17/20 08:45 06/19/20 10:32 Proventil Hfa INH 2 puff ASDIR PRN Administration SOB Albuterol/Ipratropium 3 ml 06/19/20 16:14 06/21/20 17:05 Duoneb NEB 3 ml [id number] PRN Administration SOB &/or Wheezing Cephalexin 500 mg 06/20/20 21:00 06/21/20 20:25 Keflex PO 500 mg QID ELLE Administration Furosemide 40 mg 06/20/20 09:00 06/21/20 09:38 Lasix SLOW IVP 40 mg DAILY ELLE Administration Metoprolol Tartrate 25 mg 06/17/20 09:00 06/21/20 20:26 Lopressor PO 25 mg BID ELLE Administration Nifedipine 30 mg 06/20/20 09:00 06/21/20 09:38 Procardia Xl PO 30 mg DAILY ELLE Administration Pantoprazole Sodium 40 mg 06/16/20 21:00 06/21/20 20:26 Protonix IVP 40 mg BID ELLE Administration Ramipril 10 mg 06/20/20 09:00 06/21/20 09:38 Altace PO 10 mg DAILY ELLE Administration Sodium Chloride 10 ml 06/16/20 16:17 06/21/20 09:44 Flush - Normal Saline IVF 10 ml PRN PRN Administration Saline Flush Warfarin Sodium 7.5 mg 06/21/20 17:00 06/21/20 16:41 Coumadin PO 7.5 mg 1700 ELLE Administration - Exam General Appearance: NAD, awake alert Neck: no JVD Heart: RRR, no gallops, no rubs, murmur present Respiratory: CTAB, no wheezes, no rales, no ronchi Gastrointestinal: soft, non-tender, non-distended, normal bowel sounds Extremities: 2+ LE edema Psychiatric: normal affect, normal behavior, A&O x 3 Hosp A/P - Plan (1) GI bleed Code(s): K92.2 - GASTROINTESTINAL HEMORRHAGE, UNSPECIFIED Status: Acute (2) Acute blood loss anemia Code(s): D62 - ACUTE POSTHEMORRHAGIC ANEMIA Status: Acute (3) ZAY (acute kidney injury) Code(s): N17.9 - ACUTE KIDNEY FAILURE, UNSPECIFIED Status: Acute (4) Elevated troponin Code(s): R79.89 - OTHER SPECIFIED ABNORMAL FINDINGS OF BLOOD CHEMISTRY Status : Acute (5) Elevated INR Code(s): R79.1 - ABNORMAL COAGULATION PROFILE Status: Acute - Plan will continue to trend hh. gi to do a egd in am. pt had some chest pain. ekg paced, trops mild elevation. may need help from cardio in regards to keep him off blood thinners. 06/18 pt underwent a egd which indicated diffuse gastic atrophy and submucosal hemorrhage and friability. will hold AC for now but pt has a mechanical valve. 06/19 pt's hh is stable. will ask gi if ok to start coumadin. He does have a mechanical valve. 06/20 will increase coumadin to 10mg daily. cardiology wants pt to be in the hospital till his inr is 2.0. given his recent friable pt has been advised to stop drinking alcohol. He has mild elevated wbc and his left hand has some mild erythema will start pt on keflex. will also order UA. 06/21 doing well, changed diet to low vitamin K; Per cardiology, will keep inpatient until INR 2, goal 2-3; Holding aspirin per cardiology
[2020-06-22 04:47] LABS: INR-International Normal Ratio 1.6; Prothrombin Time 18.7 sec (12.0-14.7)
[2020-06-22 05:00] LABS: Anion Gap 16 mmol/L (10-20); BUN (Urea Nitrogen) 13 mg/dL (8.4-25.7); Calc. Creatinine Clearance 87 mL/min (70-130); Calcium 8.5 mg/dL (7.8-10.44); Carbon Dioxide 23 mmol/L (23-31); Chloride 101 mmol/L (98-107); Estimated GFR-MDRD 77; Glucose 91 mg/dL (83-110); Magnesium 2.1 mg/dL (1.6-2.6); Potassium 3.6 mmol/L (3.5-5.1); Sodium 136 mmol/L (136-145)
[2020-06-22 05:11] LABS: Band 1 % (5-11); Eosinophils 5 % (0-10); Hemoglobin 7.9 g/dL (14.0-18.0); Lymphocytes 12 % (21-51); MDiff Complete? YES; Mean Corpuscular HGB CONC 31.1 g/dL (32.0-36.0); Mean Corpuscular Hemoglobin 28.6 pg (27.0-31.0); Mean Corpuscular Volume 91.9 fL (78.0-98.0); Mean Platelet Volume 7.1 fL (7.4-10.4); Monocytes 11 % (0-10); Myelocyte 2 % (0-0); Platelet Count 343 thou/uL (130-400); Polychromasia SLIGHT = 2-3 cells (100X) (0-2/hpf); RBC Distribution Width 16.9 % (11.5-14.5); Red Blood Cell (RBC) Count 2.75 mill/uL (4.70-6.10)
[2020-06-22] MEDS: Cephalexin 250 MG CAP PO SCH ×4 (09:33→22:10)
[2020-06-22] MEDS: Metoprolol Tartrate 25 MG TAB PO SCH ×2 (09:34→22:11)
[2020-06-22] MEDS: NIFEdipine XL 30 MG TAB PO SCH (09:34)
[2020-06-22] MEDS: Ramipril 5 MG CAP PO SCH (09:34)
[2020-06-22] MEDS: Pantoprazole 40 MG VIAL IVP SCH ×2 (09:34→22:14)
[2020-06-22] MEDS: Furosemide 40 MG/4 ML VIAL SLOW IVP SCH (09:34)
--- NOTE | 2020-06-22 16:45 | PDOC.HOSPP ---
- Subjective Encounter Date: 06/22/20 Encounter Time: 09:00 Subjective: no overnight events. this morning, feeling well and has no complaints - Objective Vital Signs & Weight: Vital Signs (12 hours) Temp Pulse Resp BP Pulse Ox 06/22/20 15:39 65 16 06/22/20 15:30 97.9 F 71 18 120/58 L 96 06/22/20 11:38 98.1 F 68 18 131/59 L 97 06/22/20 07:30 98 F 76 16 127/69 95 06/22/20 05:31 95 Weight Weight 198 lb I&O: 06/21/20 06/22/20 06/23/20 06:59 06:59 06:59 Intake Total 1560 1520 240 Output Total 1400 2650 Balance 160 -1130 240 Result Diagrams: 06/22/20 04:20 06/22/20 04:20 Hospitalist ROS - Review of Systems Constitutional: denies: chills, sweats Respiratory: denies: cough, shortness of breath Cardiovascular: reports: edema. denies: chest pain, palpitations Gastrointestinal: denies: nausea, vomiting, abdominal pain - Medication Medications: Active Medications Generic Name Dose Route Start Last Admin Trade Name Freq PRN Reason Stop Dose Admin Acetaminophen 325 mg 06/17/20 17:39 06/20/20 10:34 Tylenol PO 325 mg Q6H PRN Administration Headache/Fever or Pain Albuterol Sulfate 2 puff 06/17/20 08:45 06/19/20 10:32 Proventil Hfa INH 2 puff ASDIR PRN Administration SOB Albuterol/Ipratropium 3 ml 06/19/20 16:14 06/22/20 15:39 Duoneb NEB 3 ml [id number] PRN Administration SOB &/or Wheezing Cephalexin 500 mg 06/20/20 21:00 06/22/20 13:00 Keflex PO 500 mg QID ELLE Administration Furosemide 40 mg 06/20/20 09:00 06/22/20 09:34 Lasix SLOW IVP 40 mg DAILY ELLE Administration Metoprolol Tartrate 25 mg 06/17/20 09:00 06/22/20 09:34 Lopressor PO 25 mg BID ELLE Administration Nifedipine 30 mg 06/20/20 09:00 06/22/20 09:34 Procardia Xl PO 30 mg DAILY ELLE Administration Pantoprazole Sodium 40 mg 06/16/20 21:00 06/22/20 09:34 Protonix IVP 40 mg BID ELLE Administration Ramipril 10 mg 06/20/20 09:00 06/22/20 09:34 Altace PO 10 mg DAILY ELLE Administration Sodium Chloride 10 ml 06/16/20 16:17 06/21/20 09:44 Flush - Normal Saline IVF 10 ml PRN PRN Administration Saline Flush Warfarin Sodium 7.5 mg 06/21/20 17:00 06/21/20 16:41 Coumadin PO 7.5 mg 1700 ELLE Administration - Exam General Appearance: NAD, awake alert Neck: no JVD Heart: RRR, no gallops, no rubs, murmur present Respiratory: CTAB, no wheezes, no rales, no ronchi Extremities: 2+ LE edema Extremities - other findings: b/l pitting to knee level Psychiatric: normal affect, normal behavior, A&O x 3 Hosp A/P - Plan (1) GI bleed Code(s): K92.2 - GASTROINTESTINAL HEMORRHAGE, UNSPECIFIED Status: Acute (2) Acute blood loss anemia Code(s): D62 - ACUTE POSTHEMORRHAGIC ANEMIA Status: Acute (3) ZAY (acute kidney injury) Code(s): N17.9 - ACUTE KIDNEY FAILURE, UNSPECIFIED Status: Acute (4) Elevated troponin Code(s): R79.89 - OTHER SPECIFIED ABNORMAL FINDINGS OF BLOOD CHEMISTRY Status : Acute (5) Elevated INR Code(s): R79.1 - ABNORMAL COAGULATION PROFILE Status: Acute - Plan will continue to trend hh. gi to do a egd in am. pt had some chest pain. ekg paced, trops mild elevation. may need help from cardio in regards to keep him off blood thinners. 06/18 pt underwent a egd which indicated diffuse gastic atrophy and submucosal hemorrhage and friability. will hold AC for now but pt has a mechanical valve. 06/19 pt's hh is stable. will ask gi if ok to start coumadin. He does have a mechanical valve. 06/20 will increase coumadin to 10mg daily. cardiology wants pt to be in the hospital till his inr is 2.0. given his recent friable pt has been advised to stop drinking alcohol. He has mild elevated wbc and his left hand has some mild erythema will start pt on keflex. will also order UA. 06/21 doing well, changed diet to low vitamin K; Per cardiology, will keep inpatient until INR 2, goal 2-3; Holding aspirin per cardiology 06/22 Feeling well. INR 1.6. No bleeding and HgB stable
[2020-06-22] MEDS: Warfarin Sodium 5 MG TAB PO SCH (17:20)
[2020-06-23 04:37] LABS: INR-International Normal Ratio 1.7; Prothrombin Time 20.2 sec (12.0-14.7)
[2020-06-23] MEDS ORDERED: Metolazone 5 MG TAB PO SCH (09:15)
[2020-06-23] MEDS: NIFEdipine XL 30 MG TAB PO SCH (09:27)
[2020-06-23] MEDS: Metoprolol Tartrate 25 MG TAB PO SCH ×2 (09:28→21:26)
[2020-06-23] MEDS: Ramipril 5 MG CAP PO SCH (09:28)
[2020-06-23] MEDS: Cephalexin 250 MG CAP PO SCH ×4 (09:28→21:25)
[2020-06-23] MEDS: Pantoprazole 40 MG VIAL IVP SCH ×2 (09:29→21:26)
[2020-06-23] MEDS: Furosemide 40 MG/4 ML VIAL SLOW IVP SCH ×2 (09:33→14:25)
--- NOTE | 2020-06-23 10:40 | PQF ---
CLINICAL DOCUMENTATION CLARIFICATION FORM: Dear Dr. Rubi Date: 06/23/20 Please exercise your independent, professional judgment in responding to the clarification form. Clinical indicators are provided on the bottom of this form for your review. Please check appropriate box(es): HEART FAILURE: A. ACUITY [ ] Acute [ ] Acute on Chronic [ x ] Chronic B. TYPE: [ ] Systolic / HFrEF [ ] Diastolic / HFpEF [ ] Combined Systolic / Diastolic [ ] Hypertensive Heart and Kidney disease [ ] Hypertensive Heart Disease [ ] Hypertensive Kidney Disease [ ] Other diagnosis [ ] Unable to determine In addition, please specify: Present on Admission (POA): [ x ] Yes [ ] No [ ] Unable to determine For continuity of documentation, please document condition throughout progress notes and discharge summary. Thank You. CONSULTATION NOTE 06/19: "...HAD BEEN ADMITTED WITH DIASTOLIC HEART FAILURE RISKS: INCREASED ALCOHOL CONSUMPTION (CONSULTATION REPORT 06/19) MODERATE BILATERAL EDEMA (CONSULTATION NOTE- [facility]ERY) H/O AORTIC VALVE REPLACEMENT (H&P- [facility]) H/O HYPERTENSION (H&P) TREATMENT: TELEMETRY MONITORING IV LASIX (STARTED 06/20) CARDIOLOGY CONSULT CDS Signature: Liliana Cardona RN Phone #: [phone] Date: 06/23/20 This is a permanent part of the Medical Record [facility]
[2020-06-23] MEDS ORDERED: Warfarin Sodium 10 MG TAB PO SCH (17:00)
--- NOTE | 2020-06-23 19:33 | PDOC.HOSPP ---
- Subjective Encounter Date: 06/23/20 Encounter Time: 08:00 non-verbal Subjective: no overnight events. this morning, feeling well and has no complaints. - Objective Vital Signs & Weight: Vital Signs (12 hours) Temp Pulse Pulse Pulse Resp BP BP 06/23/20 16:21 97.5 F L 80 20 06/23/20 13:15 75 81 118/61 114/55 L 06/23/20 11:35 97.6 F 66 19 06/23/20 08:04 98.5 F 80 20 BP Pulse Ox 06/23/20 16:21 135/63 95 06/23/20 13:15 06/23/20 11:35 134/66 96 06/23/20 08:04 135/65 96 Weight Weight 196 lb I&O: 06/22/20 06/23/20 06/24/20 06:59 06:59 06:59 Intake Total 1520 2125 1999 Output Total 2650 8182 7297 [facility] -1130 -1045 -525 Result Diagrams: 06/22/20 04:20 06/22/20 04:20 Hospitalist ROS - Review of Systems Constitutional: denies: chills, sweats Respiratory: denies: cough, shortness of breath Cardiovascular: denies: chest pain, palpitations, orthopnea - Medication Medications: Active Medications Generic Name Dose Route Start Last Admin Trade Name Freq PRN Reason Stop Dose Admin Acetaminophen 325 mg 06/17/20 17:39 06/20/20 10:34 Tylenol PO 325 mg Q6H PRN Administration Headache/Fever or Pain Albuterol Sulfate 2 puff 06/17/20 08:45 06/19/20 10:32 Proventil Hfa INH 2 puff ASDIR PRN Administration SOB Albuterol/Ipratropium 3 ml 06/19/20 16:14 06/23/20 03:04 Duoneb NEB 3 ml [id number] PRN Administration SOB &/or Wheezing Cephalexin 500 mg 06/20/20 21:00 06/23/20 17:29 Keflex PO 500 mg QID ELLE Administration Furosemide 40 mg 06/23/20 14:00 06/23/20 14:25 Lasix SLOW IVP 40 mg 0600,1400 ELLE Administration Metoprolol Tartrate 25 mg 06/17/20 09:00 06/23/20 09:28 Lopressor PO 25 mg BID ELLE Administration Nifedipine 30 mg 06/20/20 09:00 06/23/20 09:27 Procardia Xl PO 30 mg DAILY ELLE Administration Pantoprazole Sodium 40 mg 06/16/20 21:00 06/23/20 09:29 Protonix IVP 40 mg BID ELLE Administration Ramipril 10 mg 06/20/20 09:00 06/23/20 09:28 Altace PO 10 mg DAILY ELLE Administration Sodium Chloride 10 ml 06/16/20 16:17 06/21/20 09:44 Flush - Normal Saline IVF 10 ml PRN PRN Administration Saline Flush Warfarin Sodium 10 mg 06/23/20 17:00 06/23/20 17:29 Coumadin PO 10 mg 1700 ELLE Administration - Exam General Appearance: NAD, awake alert Neck: no JVD Heart: RRR, no murmur, no gallops, no rubs Respiratory: CTAB, no wheezes, no rales, no ronchi Gastrointestinal: soft, non-tender, non-distended, normal bowel sounds Extremities: 2+ LE edema Psychiatric: normal affect, normal behavior, A&O x 3 Hosp A/P - Plan (1) GI bleed Code(s): K92.2 - GASTROINTESTINAL HEMORRHAGE, UNSPECIFIED Status: Acute (2) Acute blood loss anemia Code(s): D62 - ACUTE POSTHEMORRHAGIC ANEMIA Status: Acute (3) ZAY (acute kidney injury) Code(s): N17.9 - ACUTE KIDNEY FAILURE, UNSPECIFIED Status: Acute (4) Elevated troponin Code(s): R79.89 - OTHER SPECIFIED ABNORMAL FINDINGS OF BLOOD CHEMISTRY Status : Acute (5) Elevated INR Code(s): R79.1 - ABNORMAL COAGULATION PROFILE Status: Acute - Plan will continue to trend hh. gi to do a egd in am. pt had some chest pain. ekg paced, trops mild elevation. may need help from cardio in regards to keep him off blood thinners. 06/18 pt underwent a egd which indicated diffuse gastic atrophy and submucosal hemorrhage and friability. will hold AC for now but pt has a mechanical valve. 06/19 pt's hh is stable. will ask gi if ok to start coumadin. He does have a mechanical valve. 06/20 will increase coumadin to 10mg daily. cardiology wants pt to be in the hospital till his inr is 2.0. given his recent friable pt has been advised to stop drinking alcohol. He has mild elevated wbc and his left hand has some mild erythema will start pt on keflex. will also order UA. 06/21 doing well, changed diet to low vitamin K; Per cardiology, will keep inpatient until INR 2, goal 2-3; Holding aspirin per cardiology 06/22 Feeling well. INR 1.6. No bleeding and HgB stable 06/23. INR 1.7. ECHO c/w diastolic dysfunction, elevated RSVP likely group 2 PHTN. Started diuresis per cardiology
[2020-06-23] MEDS: Acetaminophen 325 MG TAB PO PRN (21:26)
[2020-06-24 05:01] LABS: INR-International Normal Ratio 1.9; Prothrombin Time 21.6 sec (12.0-14.7)
[2020-06-24 05:20] LABS: Anion Gap 14 mmol/L (10-20); BUN (Urea Nitrogen) 17 mg/dL (8.4-25.7); Calc. Creatinine Clearance 77 mL/min (70-130); Calcium 9.2 mg/dL (7.8-10.44); Carbon Dioxide 26 mmol/L (23-31); Chloride 96 mmol/L (98-107); Estimated GFR-MDRD 66; Glucose 100 mg/dL (83-110); Magnesium 1.9 mg/dL (1.6-2.6); Potassium 3.6 mmol/L (3.5-5.1); Sodium 132 mmol/L (136-145)
[2020-06-24] MEDS: Furosemide 40 MG/4 ML VIAL SLOW IVP SCH ×2 (05:28→13:57)
[2020-06-24] MEDS: Ramipril 5 MG CAP PO SCH (09:16)
[2020-06-24] MEDS: NIFEdipine XL 30 MG TAB PO SCH (09:17)
[2020-06-24] MEDS: Cephalexin 250 MG CAP PO SCH ×2 (09:17→13:57)
[2020-06-24] MEDS: Metoprolol Tartrate 25 MG TAB PO SCH (09:17)
[2020-06-24] MEDS: Pantoprazole 40 MG VIAL IVP SCH (09:18)
[2020-06-24 12:19] LABS: Neutrophil 69 % (42-75)
[2020-06-24 12:55] LABS: Neutrophil 81 % (42-75)
[2020-06-24 15:41] VITALS: BP 111/55; TEMP 98.7
--- NOTE | 2020-06-25 09:17 | DIS ---
DATE OF ADMISSION: 06/16/2020 DATE OF DISCHARGE: 06/24/2020 HOSPITAL COURSE: Mr. Hardy is a 74-year-old male with medical history of mechanical aortic valve (on Coumadin), and GI bleed, who presented for nearly passing out and melenic stools. He was found to have a supratherapeutic warfarin. The warfarin was held and Gastroenterology was consulted. An EGD was carried out and showed diffuse gastric atrophy with submucosal hemorrhage and friability, likely due to portal hypertensive gastropathy. The patient was started on PPI and his warfarin was restarted. Per Cardiology, the patient was monitored until his INR approached near goal levels. In addition to that, the patient had lower extremity pitting edema that was equal. Echocardiography showed diastolic dysfunction with evidence of mild group 2 pulmonary hypertension. The patient was diuresed per Cardiology. Prior to discharge, the patient was educated regarding the use of diuresis in the context of diastolic dysfunction and pulmonary hypertension, to avoid aggressive diuresis and clinically relevant reduction preload. On the day of discharge, the patient was feeling well and had no complaints. PHYSICAL EXAMINATION: VITAL SIGNS: Blood pressure 133/70, pulse 66, respiratory rate 16, oxygen saturation 96% on room air, temperature 98. GENERAL: Sitting comfortably in bed, awake and alert. NECK: No JVD. HEART: Regular rate and rhythm. No murmurs, gallops, or rubs. RESPIRATORY: Clear to auscultation bilaterally. No wheezing, rales or rhonchi. GASTROINTESTINAL: Soft, nontender, nondistended. Normal bowel sounds. EXTREMITIES: Bilateral equal pitting edema up to knee level. PSYCHIATRIC: Proper mood and affect. Alert and oriented x3. MEDICATION LIST: New medications: Pantoprazole 40 mg p.o. q.a.m. Discontinued medications: Omeprazole 20 mg. Modified medications: Warfarin was modified from his previous regimen to 5 mg p.o. daily pending appointment with his primary care physician 3 days following discharge. Continued medications: 1. Metoprolol. 2. Nifedipine. 3. Alirocumab. 4. Aspirin. 5. Lasix 40 mg p.o. daily p.r.n. lower extremity edema. 6. [place]-3. 7. Ramipril. 8. Multivitamin. Job ID: [id number]
== END 2020-06-24 16:45 | disposition home or self-care (01) | DRG 441 ==
LOC: ERS 12:21 → 2NO 13:26
PROVIDERS: ADMIT Internal Medicine; ATTEND Internal Medicine
PROC: 0DJ08ZZ Inspection of Upper Intestinal Tract, Via Natural or Artificial Opening Endoscopic (ICD-10-PCS; principal; 2020-06-18)
DX: K76.6 Portal hypertension (principal); K29.41 Chronic atrophic gastritis with bleeding; D62 Acute posthemorrhagic anemia; N17.9 Acute kidney failure, unspecified; I50.32 Chronic diastolic (congestive) heart failure; K31.89 Other diseases of stomach and duodenum; I25.10 Atherosclerotic heart disease of native coronary artery without angina pectoris; Z20.828 Contact with and (suspected) exposure to other viral communicable diseases; I48.0 Paroxysmal atrial fibrillation; E78.5 Hyperlipidemia, unspecified; R79.1 Abnormal coagulation profile; K21.9 Gastro-esophageal reflux disease without esophagitis; M19.90 Unspecified osteoarthritis, unspecified site; F10.10 Alcohol abuse, uncomplicated; I11.0 Hypertensive heart disease with heart failure; I27.22 Pulmonary hypertension due to left heart disease; Z95.2 Presence of prosthetic heart valve; Z87.891 Personal history of nicotine dependence; Z88.2 Allergy status to sulfonamides; Z79.899 Other long term (current) drug therapy; Z90.49 Acquired absence of other specified parts of digestive tract; Z79.01 Long term (current) use of anticoagulants
CPT/HCPCS: 36415; 80048; 81001; 82274; 83735; 84484; 85025; 85610; 85730; 86850; 86900; 86901; 87635; 93005; 93010; 94640; 94760; 96374; C9113; J1940; J2704; J2916; J3430; J3490; J7620; U0003

== ENCOUNTER 2022-03-31 12:54 | Outpatient (CLI) | payer MEDICARE | END 2022-03-31 12:55 | disposition home or self-care (01) | LOC: BICULT 12:54 | PROVIDERS: ATTEND Family Medicine | DX: M79.89 Other specified soft tissue disorders (principal); M79.605 Pain in left leg ==

== ENCOUNTER 2022-06-14 18:39 | Inpatient (IN) | payer MEDICARE ==
[2022-06-14 20:52] LABS: CKMB 4.3 ng/mL (0-6.6)
[2022-06-14 22:02] LABS: Anion Gap 21 mmol/L (10-20); BUN (Urea Nitrogen) 38 mg/dL (8.4-25.7); Calc. Creatinine Clearance 0 mL/min (70-130); Calcium 7.6 mg/dL (7.8-10.44); Carbon Dioxide 16 mmol/L (23-31); Chloride 93 mmol/L (98-107); Estimated GFR 56; Glucose 142 mg/dL (83-110); Potassium 4.4 mmol/L (3.5-5.1); Sodium 126 mmol/L (136-145)
[2022-06-14 22:28] LABS: #Basophils 0.1 thou/uL (0.0-0.2); #Lymphocytes 0.6 thou/uL (1.20-3.40); #Monocytes 0.5 thou/uL (0.11-0.59); %Basophils 0.4 % (0.0-1.0); %Eosinophils 0.2 % (0.0-10.0); %Lymphocytes 3.1 % (21.0-51.0); %Monocytes 2.7 % (0.0-10.0); %Neutrophils 93.7 % (42.0-75.0); Hemoglobin 8.8 g/dL (14.0-18.0); Mean Corpuscular HGB CONC 33.4 g/dL (32.0-36.0); Mean Corpuscular Hemoglobin 30.4 pg (27.0-31.0); Mean Corpuscular Volume 90.9 fL (78.0-98.0); Mean Platelet Volume 7.3 fL (7.4-10.4); Platelet Count 265 thou/uL (130-400); RBC Distribution Width 12.2 % (11.5-14.5); Red Blood Cell (RBC) Count 2.89 mill/uL (4.70-6.10); White Blood Cell (WBC) Count 18.1 thou/uL (4.8-10.8)
[2022-06-14] MEDS ORDERED: Ondansetron PF 4 MG/2 ML Vial IVP PRN (22:36)
[2022-06-14] MEDS ORDERED: Acetaminophen 325 MG TAB PO PRN (22:36)
[2022-06-14] MEDS ORDERED: Pantoprazole 40 MG VIAL IVP SCH (22:45)
[2022-06-14 23:01] LABS: Critical Call Chem Troponin I RESULT DECREASING; Troponin I 0.795 ng/mL (< 0.028)
[2022-06-15] MEDS ORDERED: Pantoprazole 40 MG VIAL ONE ×2 (00:01→07:56)
[2022-06-15] MEDS ORDERED: methylPREDNISolone Sod Succ 40 MG VIAL ONE ×2 (00:01→07:56)
[2022-06-15] MEDS: methylPREDNISolone Sod Succ 40 MG VIAL IVP SCH ×4 (00:10→17:37)
[2022-06-15 02:31] LABS: #Basophils 0.1 thou/uL (0.0-0.2); #Lymphocytes 0.6 thou/uL (1.20-3.40); #Monocytes 0.3 thou/uL (0.11-0.59); #Neutrophils 17.4 thou/uL (1.40-6.50); %Basophils 0.6 % (0.0-1.0); %Eosinophils 0.2 % (0.0-10.0); %Monocytes 1.9 % (0.0-10.0); %Neutrophils 94.3 % (42.0-75.0); Hemoglobin 9.4 g/dL (14.0-18.0); Mean Corpuscular HGB CONC 33.8 g/dL (32.0-36.0); Mean Corpuscular Hemoglobin 30.8 pg (27.0-31.0); Mean Corpuscular Volume 91.1 fL (78.0-98.0); Mean Platelet Volume 7.3 fL (7.4-10.4); Platelet Count 282 thou/uL (130-400); RBC Distribution Width 12.1 % (11.5-14.5); Red Blood Cell (RBC) Count 3.04 mill/uL (4.70-6.10); White Blood Cell (WBC) Count 18.5 thou/uL (4.8-10.8)
[2022-06-15 02:35] LABS: Prothrombin Time 46.8 sec (12.0-14.7)
[2022-06-15 02:43] LABS: INR-International Normal Ratio 4.9
[2022-06-15 02:58] LABS: Critical Call Chem Troponin I RESULT DECREASING; Troponin I 0.719 ng/mL (< 0.028)
[2022-06-15 03:03] LABS: Anion Gap 19 mmol/L (10-20); BUN (Urea Nitrogen) 37 mg/dL (8.4-25.7); Calc. Creatinine Clearance 0 mL/min (70-130); Calcium 8.3 mg/dL (7.8-10.44); Carbon Dioxide 17 mmol/L (23-31); Chloride 95 mmol/L (98-107); Estimated GFR 57; Glucose 171 mg/dL (83-110); Lipase 99 U/L (8-78); Potassium 4.4 mmol/L (3.5-5.1); Sodium 127 mmol/L (136-145)
[2022-06-15 03:15] LABS: SARS-CoV-2 NAA Rapid Test Not Detected (NotDetected)
[2022-06-15] MEDS ORDERED: VANCOMYCIN 1.75 GM/500 ML BAG 1.75 GM in Premix Bag 1 BAG IVPB SCH (06:00)
[2022-06-15] MEDS ORDERED: Furosemide 20 MG/2 ML VIAL ONE (06:06)
[2022-06-15] MEDS ORDERED: Cefepime 1 GM VIAL ONE (06:06)
[2022-06-15] MEDS: Cefepime 1 GM in Sodium Chloride 0.9% 100 ML IVPB SCH ×2 (06:31→17:37)
[2022-06-15] MEDS: Furosemide 20 MG/2 ML VIAL SLOW IVP SCH ×2 (06:31→14:06)
[2022-06-15] MEDS: Pantoprazole 40 MG VIAL IVP SCH ×2 (08:10→21:54)
[2022-06-15] MEDS ORDERED: Pantoprazole 40 MG VIAL IVP SCH (09:00)
[2022-06-15 10:09] VITALS: BMI 33.3
[2022-06-15] MEDS ORDERED: Docusate 100 MG CAP PO PRN (13:29)
[2022-06-15] MEDS ORDERED: Milk Of Magnesia 30 ML UDCUP PO PRN (15:47)
[2022-06-15] MEDS ORDERED: Polyethylene Glycol 3350 17 GM Packet PO PRN (15:47)
[2022-06-16] MEDS: methylPREDNISolone Sod Succ 40 MG VIAL IVP SCH ×5 (00:39→20:05)
[2022-06-16] MEDS: Loratadine 10 MG TAB PO PRN ×2 (04:13→09:07)
[2022-06-16] MEDS: Benzonatate 100 MG CAP PO PRN ×3 (04:13→17:49)
[2022-06-16 05:25] LABS: Prothrombin Time 46.3 sec (12.0-14.7)
[2022-06-16 05:26] LABS: INR-International Normal Ratio 4.8
[2022-06-16 05:30] LABS: Band 6 % (5-11); Hemoglobin 8.8 g/dL (14.0-18.0); Hypochromia SLIGHT = 6-15 cells (100X) (0-5/hpf); Lymphocytes 5 % (21-51); MDiff Complete? YES; Mean Corpuscular Volume 90.5 fL (78.0-98.0); Mean Platelet Volume 7.2 fL (7.4-10.4); Monocytes 12 % (0-10); Neutrophil 77 % (42-75); Platelet Count 347 thou/uL (130-400); Platelet Morphology Comment Appears Adequate; RBC Distribution Width 12.3 % (11.5-14.5); Red Blood Cell (RBC) Count 3.02 mill/uL (4.70-6.10); White Blood Cell (WBC) Count 22.3 thou/uL (4.8-10.8)
[2022-06-16] MEDS: Furosemide 20 MG/2 ML VIAL SLOW IVP SCH ×2 (05:42→14:03)
[2022-06-16 05:44] LABS: Vancomycin, Trough 6.5 ug/mL
[2022-06-16 05:45] LABS: Anion Gap 14 mmol/L (10-20); BUN (Urea Nitrogen) 29 mg/dL (8.4-25.7); Calc. Creatinine Clearance 85 mL/min (70-130); Calcium 8.4 mg/dL (7.8-10.44); Carbon Dioxide 22 mmol/L (23-31); Chloride 97 mmol/L (98-107); Estimated GFR 78; Glucose 228 mg/dL (83-110); Potassium 3.6 mmol/L (3.5-5.1); Sodium 129 mmol/L (136-145)
[2022-06-16] MEDS ORDERED: Cefepime 1 GM VIAL ONE (05:56)
[2022-06-16] MEDS: Cefepime 1 GM in Sodium Chloride 0.9% 100 ML IVPB SCH ×2 (05:59→17:47)
[2022-06-16] MEDS: VANCOMYCIN 1.25 GM/250 ML BAG 1.25 GM in Premix Bag 1 BAG IVPB SCH ×2 (06:34→17:46)
[2022-06-16] MEDS: Pantoprazole 40 MG VIAL IVP SCH (08:56)
[2022-06-16] MEDS ORDERED: hydrALAZINE 20 MG/ML VIAL SLOW IVP PRN (16:10)
[2022-06-16] MEDS ORDERED: Labetalol HCl 100 MG/20 ML VIAL SLOW IVP PRN (16:10)
[2022-06-16] MEDS ORDERED: Cepastat Lozenges 1 LOZ PO PRN (16:10)
[2022-06-16] MEDS ORDERED: Calcium Carbonate 500 MG ChewTAB PO PRN (16:10)
[2022-06-16] MEDS ORDERED: Artificial Tear Sol 15 ML BOT EA EYE PRN (16:10)
[2022-06-16] MEDS: Acetaminophen 500 MG TAB PO PRN (17:48)
[2022-06-16] MEDS: diphenhydrAMINE 25 MG CAP PO PRN (21:40)
[2022-06-17 03:49] LABS: INR-International Normal Ratio 3.9; Prothrombin Time 39.5 sec (12.0-14.7)
[2022-06-17 04:03] LABS: Anion Gap 15 mmol/L (10-20); BUN (Urea Nitrogen) 30 mg/dL (8.4-25.7); Calc. Creatinine Clearance 74 mL/min (70-130); Calcium 8.6 mg/dL (7.8-10.44); Carbon Dioxide 22 mmol/L (23-31); Chloride 98 mmol/L (98-107); Estimated GFR 67; Glucose 195 mg/dL (83-110); Potassium 3.9 mmol/L (3.5-5.1); Sodium 131 mmol/L (136-145)
[2022-06-17 04:23] LABS: Band 7 % (5-11); Hemoglobin 9.1 g/dL (14.0-18.0); MDiff Complete? YES; Mean Corpuscular HGB CONC 33.5 g/dL (32.0-36.0); Mean Corpuscular Hemoglobin 30.7 pg (27.0-31.0); Mean Corpuscular Volume 91.5 fL (78.0-98.0); Mean Platelet Volume 7.1 fL (7.4-10.4); Metamyelocyte 1 % (0-0); Monocytes 2 % (0-10); Myelocyte 1 % (0-0); Neutrophil 89 % (42-75); Platelet Count 396 thou/uL (130-400); Platelet Morphology Comment Appears Adequate; RBC Distribution Width 12.2 % (11.5-14.5); RBC Morphology Normal; Red Blood Cell (RBC) Count 2.98 mill/uL (4.70-6.10); White Blood Cell (WBC) Count 26.4 thou/uL (4.8-10.8)
[2022-06-17] MEDS: Furosemide 20 MG/2 ML VIAL SLOW IVP SCH (05:43)
[2022-06-17] MEDS: Cefepime 1 GM in Sodium Chloride 0.9% 100 ML IVPB SCH ×2 (05:43→18:09)
[2022-06-17] MEDS: VANCOMYCIN 1.25 GM/250 ML BAG 1.25 GM in Premix Bag 1 BAG IVPB SCH ×2 (06:15→18:13)
[2022-06-17] MEDS: Acetaminophen 500 MG TAB PO PRN ×3 (06:19→18:09)
[2022-06-17] MEDS ORDERED: Pantoprazole 40 MG VIAL IVP SCH (09:00)
[2022-06-17] MEDS: Loratadine 10 MG TAB PO PRN (09:25)
[2022-06-17] MEDS: Benzonatate 100 MG CAP PO PRN ×2 (09:25→22:26)
[2022-06-17] MEDS: methylPREDNISolone Sod Succ 40 MG VIAL IVP SCH ×2 (09:25→20:51)
[2022-06-17] MEDS ORDERED: Furosemide 20 MG/2 ML VIAL SLOW IVP SCH (10:30)
[2022-06-17] MEDS: Furosemide 40 MG/4 ML VIAL SLOW IVP SCH (13:41)
[2022-06-17 17:26] LABS: Vancomycin, Trough 18.1 ug/mL
[2022-06-17] MEDS ORDERED: Sodium Chloride 0.65% Nasal 44 ML BOT EA NARE PRN (21:55)
[2022-06-17] MEDS ORDERED: traMADol HCl 50 MG TAB PO SCH (22:00)
[2022-06-17] MEDS: diphenhydrAMINE 25 MG CAP PO PRN (22:19)
[2022-06-18 04:58] LABS: INR-International Normal Ratio 3.4
[2022-06-18 05:13] LABS: ALT (SGPT) 27 U/L (8-55); AST (SGOT) 26 U/L (5-34); Albumin 3.1 g/dL (3.4-4.8); Alkaline Phosphatase 86 U/L (40-110); Anion Gap 14 mmol/L (10-20); BUN (Urea Nitrogen) 39 mg/dL (8.4-25.7); Bilirubin, Total 0.5 mg/dL (0.2-1.2); Calc. Creatinine Clearance 67 mL/min (70-130); Calcium 8.4 mg/dL (7.8-10.44); Carbon Dioxide 23 mmol/L (23-31); Chloride 100 mmol/L (98-107); Estimated GFR 59; Globulin 2.8 g/dL (2.4-3.5); Glucose 133 mg/dL (83-110); Potassium 5.3 mmol/L (3.5-5.1); Protein, Total 5.9 g/dL (5.8-8.1); Sodium 132 mmol/L (136-145)
[2022-06-18] MEDS: VANCOMYCIN 1.25 GM/250 ML BAG 1.25 GM in Premix Bag 1 BAG IVPB SCH (05:29)
[2022-06-18] MEDS: Cefepime 1 GM in Sodium Chloride 0.9% 100 ML IVPB SCH ×2 (05:29→17:37)
[2022-06-18] MEDS: Furosemide 40 MG/4 ML VIAL SLOW IVP SCH ×2 (05:29→14:09)
[2022-06-18 05:47] LABS: Hemoglobin 9.2 g/dL (14.0-18.0); Mean Corpuscular HGB CONC 32.6 g/dL (32.0-36.0); Mean Corpuscular Hemoglobin 29.8 pg (27.0-31.0); Mean Corpuscular Volume 91.5 fL (78.0-98.0); Mean Platelet Volume 7.1 fL (7.4-10.4); Platelet Count 433 thou/uL (130-400); RBC Distribution Width 12.5 % (11.5-14.5); Red Blood Cell (RBC) Count 3.08 mill/uL (4.70-6.10); White Blood Cell (WBC) Count 28.3 thou/uL (4.8-10.8)
[2022-06-18 05:49] LABS: Band 6 % (5-11); Lymphocytes 5 % (21-51); MDiff Complete? YES; Metamyelocyte 2 % (0-0); Monocytes 4 % (0-10); Myelocyte 5 % (0-0); Neutrophil 78 % (42-75); Nucleated RBC 1 % (0)
[2022-06-18] MEDS ORDERED: methylPREDNISolone Sod Succ 40 MG VIAL IVP SCH (09:00)
[2022-06-18] MEDS: NIFEdipine XL 30 MG TAB PO SCH (09:26)
[2022-06-18 13:21] LABS: Anion Gap 16 mmol/L (10-20); BUN (Urea Nitrogen) 43 mg/dL (8.4-25.7); Calc. Creatinine Clearance 64 mL/min (70-130); Calcium 8.3 mg/dL (7.8-10.44); Carbon Dioxide 23 mmol/L (23-31); Chloride 97 mmol/L (98-107); Estimated GFR 55; Glucose 151 mg/dL (83-110); Potassium 4.6 mmol/L (3.5-5.1); Sodium 131 mmol/L (136-145)
[2022-06-18 14:37] LABS: Bacteria/HPF None Seen HPF (None Seen); Bilirubin Negative (Negative); Blood, Urine 3+ (Negative); Clarity Clear (Clear); Glucose, Urine (Dipstick) Normal (Negative); Ketone, Urine Negative (Negative); Leukocyte 25 Leu/uL (Negative); Nitrite Negative (Negative); Protein, Urine (Dipstick) 10 mg/dL (Neg-Trace); RBC/HPF Greater than 50 HPF (0-3); Specific Gravity, Urine 1.019 (1.002-1.036); Squamous Epithelial 0-3 HPF (0-3); Urobilinogen Normal mg/dL (Less than 2); pH, Urine 5.5 (5.0-9.0)
[2022-06-18] MEDS: Tamsulosin HCl 0.4 MG CAP PO SCH (20:15)
[2022-06-18] MEDS: Acetaminophen 500 MG TAB PO PRN (20:16)
[2022-06-19] MEDS: Acetaminophen 500 MG TAB PO PRN ×2 (03:55→09:45)
[2022-06-19 04:03] LABS: INR-International Normal Ratio 2.2; Prothrombin Time 25.1 sec (12.0-14.7)
[2022-06-19 04:13] LABS: ALT (SGPT) 29 U/L (8-55); AST (SGOT) 23 U/L (5-34); Alkaline Phosphatase 73 U/L (40-110); Anion Gap 11 mmol/L (10-20); BUN (Urea Nitrogen) 44 mg/dL (8.4-25.7); Bilirubin, Total 0.5 mg/dL (0.2-1.2); Calc. Creatinine Clearance 68 mL/min (70-130); Calcium 8.2 mg/dL (7.8-10.44); Carbon Dioxide 26 mmol/L (23-31); Chloride 98 mmol/L (98-107); Estimated GFR 60; Globulin 2.3 g/dL (2.4-3.5); Glucose 92 mg/dL (83-110); Protein, Total 5.3 g/dL (5.8-8.1); Sodium 131 mmol/L (136-145)
[2022-06-19 05:40] LABS: Band 7 % (5-11); Eosinophils 1 % (0-10); Hemoglobin 8.5 g/dL (14.0-18.0); Lymphocytes 12 % (21-51); MDiff Complete? YES; Mean Corpuscular HGB CONC 32.9 g/dL (32.0-36.0); Mean Corpuscular Hemoglobin 30.1 pg (27.0-31.0); Mean Corpuscular Volume 91.5 fL (78.0-98.0); Monocytes 6 % (0-10); Myelocyte 2 % (0-0); Neutrophil 72 % (42-75); Nucleated RBC 1 % (0); Platelet Count 420 thou/uL (130-400); RBC Distribution Width 12.4 % (11.5-14.5); Red Blood Cell (RBC) Count 2.81 mill/uL (4.70-6.10); White Blood Cell (WBC) Count 24.8 thou/uL (4.8-10.8)
[2022-06-19] MEDS: Cefepime 1 GM in Sodium Chloride 0.9% 100 ML IVPB SCH ×2 (05:47→17:06)
[2022-06-19] MEDS: Furosemide 40 MG/4 ML VIAL SLOW IVP SCH ×2 (05:47→14:36)
[2022-06-19] MEDS: NIFEdipine XL 30 MG TAB PO SCH ×2 (09:03→21:27)
[2022-06-19] MEDS: diphenhydrAMINE 25 MG CAP PO PRN (21:25)
[2022-06-19] MEDS: Acetaminophen 325 MG TAB PO PRN (21:26)
[2022-06-19] MEDS: Tamsulosin HCl 0.4 MG CAP PO SCH (21:26)
[2022-06-20 04:42] LABS: INR-International Normal Ratio 1.7; Prothrombin Time 19.8 sec (12.0-14.7)
[2022-06-20 05:01] LABS: ALT (SGPT) 22 U/L (8-55); AST (SGOT) 27 U/L (5-34); Alkaline Phosphatase 72 U/L (40-110); Anion Gap 11 mmol/L (10-20); BUN (Urea Nitrogen) 27 mg/dL (8.4-25.7); Band 9 % (5-11); Bilirubin, Total 0.8 mg/dL (0.2-1.2); Calc. Creatinine Clearance 78 mL/min (70-130); Calcium 8.4 mg/dL (7.8-10.44); Carbon Dioxide 29 mmol/L (23-31); Chloride 96 mmol/L (98-107); Estimated GFR 72; Globulin 2.5 g/dL (2.4-3.5); Glucose 107 mg/dL (83-110); Hemoglobin 8.9 g/dL (14.0-18.0); Lymphocytes 2 % (21-51); MDiff Complete? YES; Mean Corpuscular HGB CONC 33.1 g/dL (32.0-36.0); Mean Corpuscular Hemoglobin 30.2 pg (27.0-31.0); Mean Corpuscular Volume 91.2 fL (78.0-98.0); Mean Platelet Volume 7.2 fL (7.4-10.4); Metamyelocyte 1 % (0-0); Monocytes 13 % (0-10); Neutrophil 75 % (42-75); Platelet Count 389 thou/uL (130-400); Polychromasia SLIGHT = 2-3 cells (100X) (0-2/hpf); Potassium 3.6 mmol/L (3.5-5.1); Protein, Total 5.5 g/dL (5.8-8.1); RBC Distribution Width 12.9 % (11.5-14.5); Red Blood Cell (RBC) Count 2.94 mill/uL (4.70-6.10); Sodium 132 mmol/L (136-145); White Blood Cell (WBC) Count 27.2 thou/uL (4.8-10.8)
[2022-06-20] MEDS: Furosemide 40 MG/4 ML VIAL SLOW IVP SCH ×2 (06:04→13:30)
[2022-06-20] MEDS: Cefepime 1 GM in Sodium Chloride 0.9% 100 ML IVPB SCH (06:05)
[2022-06-20] MEDS: NIFEdipine XL 30 MG TAB PO SCH ×2 (09:04→21:48)
[2022-06-20] MEDS: Acetaminophen 325 MG TAB PO PRN (13:30)
[2022-06-20] MEDS: [UNRECOGNIZED DRUG - OTHER] PO SCH (17:22)
[2022-06-20] MEDS: VANCOMYCIN HCL PO SCH (17:22)
[2022-06-20] MEDS: Warfarin Sodium 2 MG TAB PO SCH (17:23)
[2022-06-20] MEDS ORDERED: cefTRIAXone\\ROCEPHIN 2 GM in Sodium Chloride 0.9% 100 ML IVPB SCH (18:00)
[2022-06-20] MEDS: Tamsulosin HCl 0.4 MG CAP PO SCH (20:19)
[2022-06-21] MEDS: VANCOMYCIN HCL PO SCH ×5 (00:06→23:55)
[2022-06-21] MEDS: [UNRECOGNIZED DRUG - OTHER] PO SCH ×5 (00:06→23:55)
[2022-06-21 05:27] LABS: ALT (SGPT) 21 U/L (8-55); AST (SGOT) 27 U/L (5-34); Alkaline Phosphatase 78 U/L (40-110); Anion Gap 15 mmol/L (10-20); BUN (Urea Nitrogen) 19 mg/dL (8.4-25.7); Bilirubin, Total 0.7 mg/dL (0.2-1.2); Calc. Creatinine Clearance 81 mL/min (70-130); Calcium 8.8 mg/dL (7.8-10.44); Carbon Dioxide 28 mmol/L (23-31); Chloride 93 mmol/L (98-107); Estimated GFR 76; Globulin 2.8 g/dL (2.4-3.5); Glucose 130 mg/dL (83-110); Potassium 3.4 mmol/L (3.5-5.1); Protein, Total 5.8 g/dL (5.8-8.1); Sodium 133 mmol/L (136-145)
[2022-06-21 05:29] LABS: Band 10 % (5-11); Eosinophils 4 % (0-10); Hemoglobin 9.1 g/dL (14.0-18.0); Lymphocytes 3 % (21-51); MDiff Complete? YES; Mean Corpuscular HGB CONC 32.5 g/dL (32.0-36.0); Mean Corpuscular Volume 92.4 fL (78.0-98.0); Mean Platelet Volume 7.4 fL (7.4-10.4); Monocytes 8 % (0-10); Myelocyte 4 % (0-0); Neutrophil 70 % (42-75); Platelet Count 345 thou/uL (130-400); RBC Distribution Width 12.9 % (11.5-14.5); Reactive Lymphocytes 1 % (0-10); Red Blood Cell (RBC) Count 3.03 mill/uL (4.70-6.10); White Blood Cell (WBC) Count 22.8 thou/uL (4.8-10.8)
[2022-06-21] MEDS: Furosemide 40 MG/4 ML VIAL SLOW IVP SCH ×2 (05:35→13:57)
[2022-06-21] MEDS: Acetaminophen 325 MG TAB PO PRN (05:46)
[2022-06-21] MEDS ORDERED: PROPOFOL 20 ML ONE (08:15)
[2022-06-21] MEDS ORDERED: PROPOFOL 200 MG/20 ML VIAL ONE (08:43)
[2022-06-21] MEDS ORDERED: Lidocaine 1% MPF 2 ML VIAL ONE (08:43)
[2022-06-21] MEDS: NIFEdipine XL 30 MG TAB PO SCH ×2 (10:26→20:36)
[2022-06-21] MEDS ORDERED: Potassium Chloride 20 MEQ TAB PO SCH (13:00)
[2022-06-21] MEDS ORDERED: Piperacillin/Tazobactam 3.375 GM in Sodium Chloride 0.9% 100 ML IVPB SCH (13:30)
[2022-06-21] MEDS: HYDROcodone/Acetaminophen 5/325 mg Tablet PO PRN ×2 (14:07→18:04)
[2022-06-21 14:23] LABS: INR-International Normal Ratio 1.5; Prothrombin Time 18.1 sec (12.0-14.7)
[2022-06-21] MEDS: Piperacillin/Tazobactam 3.375 GM in Sodium Chloride 0.9% 100 ML IVPB SCH (18:02)
[2022-06-21] MEDS: Warfarin Sodium 2 MG TAB PO SCH (18:04)
[2022-06-21] MEDS: Tamsulosin HCl 0.4 MG CAP PO SCH (20:35)
[2022-06-21] MEDS ORDERED: Cefepime 2 GM in Sodium Chloride 0.9% 100 ML IVPB SCH (21:00)
[2022-06-22] MEDS: Piperacillin/Tazobactam 3.375 GM in Sodium Chloride 0.9% 100 ML IVPB SCH ×3 (01:52→17:10)
[2022-06-22 05:05] LABS: INR-International Normal Ratio 1.5; Prothrombin Time 18.2 sec (12.0-14.7)
[2022-06-22 05:11] LABS: ALT (SGPT) 16 U/L (8-55); AST (SGOT) 17 U/L (5-34); Albumin 2.9 g/dL (3.4-4.8); Alkaline Phosphatase 64 U/L (40-110); Anion Gap 15 mmol/L (10-20); BUN (Urea Nitrogen) 18 mg/dL (8.4-25.7); Bilirubin, Total 0.7 mg/dL (0.2-1.2); Calc. Creatinine Clearance 73 mL/min (70-130); Calcium 8.7 mg/dL (7.8-10.44); Carbon Dioxide 28 mmol/L (23-31); Cardiac Risk 2.8 (Less than 4.5); Chloride 94 mmol/L (98-107); Cholesterol 80 mg/dl (< 200 Desired); Estimated GFR 68; Globulin 2.7 g/dL (2.4-3.5); Glucose 134 mg/dL (83-110); HDL Cholesterol 29 mg/dL (>60 Neg Risk); LDL Cholesterol, Calculated 33 mg/dL; Magnesium 1.8 mg/dL (1.6-2.6); Potassium 3.7 mmol/L (3.5-5.1); Protein, Total 5.6 g/dL (5.8-8.1); Sodium 133 mmol/L (136-145); Triglycerides 89 mg/dL (Less than 150)
[2022-06-22] MEDS: VANCOMYCIN HCL PO SCH ×3 (05:25→17:10)
[2022-06-22] MEDS: [UNRECOGNIZED DRUG - OTHER] PO SCH ×3 (05:25→17:10)
[2022-06-22] MEDS: Furosemide 40 MG/4 ML VIAL SLOW IVP SCH (05:25)
[2022-06-22] MEDS: HYDROcodone/Acetaminophen 5/325 mg Tablet PO PRN ×2 (05:35→13:15)
[2022-06-22 05:39] LABS: Band 4 % (5-11); Lymphocytes 8 % (21-51); MDiff Complete? YES; Mean Corpuscular Hemoglobin 29.5 pg (27.0-31.0); Mean Corpuscular Volume 92.3 fL (78.0-98.0); Mean Platelet Volume 7.4 fL (7.4-10.4); Monocytes 6 % (0-10); Neutrophil 82 % (42-75); Platelet Count 294 thou/uL (130-400); RBC Distribution Width 12.9 % (11.5-14.5); Red Blood Cell (RBC) Count 2.72 mill/uL (4.70-6.10); White Blood Cell (WBC) Count 21.3 thou/uL (4.8-10.8)
[2022-06-22] MEDS ORDERED: Furosemide 40 MG/4 ML VIAL SLOW IVP SCH (09:00)
[2022-06-22] MEDS: Acetaminophen 325 MG TAB PO PRN (12:09)
[2022-06-22] MEDS: Warfarin Sodium 2 MG TAB PO SCH (17:10)
[2022-06-22 19:39] VITALS: BP 101/57; TEMP 98.6
[2022-06-22] MEDS: Tamsulosin HCl 0.4 MG CAP PO SCH (19:40)
== END 2022-06-22 21:13 | disposition short-term general hospital (02) | DRG 871 ==
LOC: ERS 18:39 → ERHOLD 20:41 → IMCU/EMU 06-15 09:42 → 2NO 06-18 01:42
PROVIDERS: ADMIT Family Medicine; ATTEND Family Medicine
PROC: 3E03329 Introduction of Other Anti-infective into Peripheral Vein, Percutaneous Approach (ICD-10-PCS; principal; 2022-06-14)
PROC: B24BZZ4 Ultrasonography of Heart with Aorta, Transesophageal (ICD-10-PCS; 2022-06-14)
DX: A40.9 Streptococcal sepsis, unspecified (principal); I21.A1 Myocardial infarction type 2; I50.33 Acute on chronic diastolic (congestive) heart failure; I60.9 Nontraumatic subarachnoid hemorrhage, unspecified; I33.0 Acute and subacute infective endocarditis; T82.6XXA Infection and inflammatory reaction due to cardiac valve prosthesis, initial encounter; J44.1 Chronic obstructive pulmonary disease with (acute) exacerbation; N17.9 Acute kidney failure, unspecified; E87.1 Hypo-osmolality and hyponatremia; I42.9 Cardiomyopathy, unspecified; A04.72 Enterocolitis due to Clostridium difficile, not specified as recurrent; E87.2 Acidosis; N39.0 Urinary tract infection, site not specified; T82.7XXA Infection and inflammatory reaction due to other cardiac and vascular devices, implants and grafts, initial encounter; Z20.822 Contact with and (suspected) exposure to COVID-19; I25.10 Atherosclerotic heart disease of native coronary artery without angina pectoris; R33.9 Retention of urine, unspecified; E78.5 Hyperlipidemia, unspecified; K21.9 Gastro-esophageal reflux disease without esophagitis; D50.9 Iron deficiency anemia, unspecified; I11.0 Hypertensive heart disease with heart failure; R31.0 Gross hematuria; R79.1 Abnormal coagulation profile; Z95.0 Presence of cardiac pacemaker; Z90.09 Acquired absence of other part of head and neck; Z90.49 Acquired absence of other specified parts of digestive tract; Z87.891 Personal history of nicotine dependence; Z88.2 Allergy status to sulfonamides; Z79.82 Long term (current) use of aspirin; Z79.899 Other long term (current) drug therapy; Z95.2 Presence of prosthetic heart valve; Z79.51 Long term (current) use of inhaled steroids; E66.9 Obesity, unspecified; Z68.32 Body mass index [BMI] 32.0-32.9, adult; Z79.01 Long term (current) use of anticoagulants; Z95.3 Presence of xenogenic heart valve; Y83.8 Other surgical procedures as the cause of abnormal reaction of the patient, or of later complication, without mention of misadventure at the time of the procedure
CPT/HCPCS: 36415; 36416; 51702; 70450; 80048; 80053; 80061; 80202; 81001; 82553; 83605; 83690; 83735; 83880; 83930; 83935; 84133; 84145; 84300; 84443; 84484; 85025; 85610; 87040; 87070; 87205; 87324; 87449; 87493; 87811; 93005; 93306; 93312; 94640; C9113; J0692; J0696; J1940; J2543; J2704; J2920; J3370; J3490; J7620; U0002

== ENCOUNTER 2022-08-23 09:54 | Inpatient (IN) | payer MEDICARE, OTHER ==
[2022-08-23] MEDS ORDERED: Aspirin Chewable 81 MG TAB ONE (11:17)
[2022-08-23] MEDS ORDERED: Nitroglycerin 2% Ointment 1 INCH/1 GM Packet ONE (11:17)
[2022-08-23 11:22] LABS: #Eosinphils 0.1 thou/uL (0.0-0.7); #Lymphocytes 0.9 thou/uL (1.20-3.40); #Monocytes 0.9 thou/uL (0.11-0.59); #Neutrophils 11.8 thou/uL (1.40-6.50); %Basophils 0.2 % (0.0-1.0); %Eosinophils 0.8 % (0.0-10.0); %Lymphocytes 6.2 % (21.0-51.0); %Monocytes 6.6 % (0.0-10.0); %Neutrophils 86.2 % (42.0-75.0); Mean Corpuscular HGB CONC 30.1 g/dL (32.0-36.0); Mean Corpuscular Volume 93.1 fl (78.0-98.0); Mean Platelet Volume 7.5 fL (7.4-10.4); Platelet Count 363 10x3/uL (130-400); RBC Distribution Width 15.7 % (11.5-14.5); Red Blood Cell (RBC) Count 3.21 mill/uL (4.70-6.10); White Blood Cell (WBC) Count 13.7 10x3/uL (4.8-10.8)
[2022-08-23 11:41] LABS: ALT (SGPT) 15 U/L (8-55); AST (SGOT) 14 U/L (5-34); Albumin 3.8 g/dL (3.4-4.8); Alkaline Phosphatase 128 U/L (40-110); Anion Gap 15 mmol/L (10-20); BUN (Urea Nitrogen) 31 mg/dL (8.4-25.7); Bilirubin, Total 0.8 mg/dL (0.2-1.2); CK (CPK) 50 U/L (30-200); Calc. Creatinine Clearance 0 mL/min (70-130); Calcium 9.7 mg/dL (7.8-10.44); Carbon Dioxide 34 mmol/L (23-31); Chloride 91 mmol/L (98-107); Estimated GFR 50; Globulin 3.6 g/dL (2.4-3.5); Glucose 93 mg/dL (83-110); Potassium 3.5 mmol/L (3.5-5.1); Protein, Total 7.4 g/dL (5.8-8.1); Sodium 136 mmol/L (136-145)
[2022-08-23 12:01] LABS: CKMB 2.5 ng/mL (0-6.6)
[2022-08-23] MEDS ORDERED: Furosemide 40 MG/4 ML VIAL ONE (12:37)
[2022-08-23 13:15] LABS: INR-International Normal Ratio 1.7; Prothrombin Time 20.7 sec (12.0-14.7)
[2022-08-23 13:16] LABS: PTT 48.7 sec (22.9-36.1)
[2022-08-23] MEDS ORDERED: Ondansetron ODT 4 MG TAB SL PRN (13:45)
[2022-08-23] MEDS ORDERED: Acetaminophen 325 MG TAB PO PRN (13:45)
[2022-08-23] MEDS ORDERED: Ondansetron PF 4 MG/2 ML Vial IVP PRN (13:45)
[2022-08-23] MEDS ORDERED: Heparin 5,000 UNITS/ML VIAL SC SCH (15:00)
[2022-08-23 15:06] LABS: Magnesium 2.1 mg/dL (1.6-2.6)
[2022-08-23 15:12] LABS: Troponin I 0.033 ng/mL (< 0.028)
[2022-08-23 16:06] VITALS: BMI 27.6
[2022-08-23] MEDS: Furosemide 40 MG/4 ML VIAL SLOW IVP SCH (16:28)
[2022-08-23 18:46] LABS: Troponin I 0.218 ng/mL (< 0.028)
[2022-08-23] MEDS ORDERED: Heparin 25,000 units/D5W 500 ML IVPB SCH (19:45)
[2022-08-23] MEDS ORDERED: Heparin 10,000 UNITS/ 10 ML VIAL SLOW IVP SCH (19:45)
[2022-08-23 20:14] LABS: Hemoglobin 8.7 g/dL (14.0-18.0); Platelet Count 333 10x3/uL (130-400)
[2022-08-23] MEDS: Famotidine 20 MG TAB PO SCH (20:50)
[2022-08-23] MEDS: Tamsulosin HCl 0.4 MG CAP PO SCH (20:50)
[2022-08-23] MEDS ORDERED: Atorvastatin Calcium 40 MG TAB PO SCH (21:00)
[2022-08-23] MEDS ORDERED: Furosemide 40 MG TAB PO SCH (21:00)
[2022-08-23] MEDS ORDERED: Apixaban 2.5 MG TAB PO SCH (21:00)
[2022-08-24 03:23] LABS: #Eosinphils 0.3 thou/uL (0.0-0.7); #Lymphocytes 0.9 thou/uL (1.20-3.40); #Monocytes 1.2 thou/uL (0.11-0.59); %Basophils 0.2 % (0.0-1.0); %Eosinophils 2.9 % (0.0-10.0); %Lymphocytes 7.9 % (21.0-51.0); %Monocytes 10.4 % (0.0-10.0); %Neutrophils 78.7 % (42.0-75.0); Hemoglobin 8.1 g/dL (14.0-18.0); Mean Corpuscular HGB CONC 30.9 g/dL (32.0-36.0); Mean Corpuscular Hemoglobin 28.9 pg (27.0-31.0); Mean Corpuscular Volume 93.3 fl (78.0-98.0); Mean Platelet Volume 7.2 fL (7.4-10.4); Platelet Count 314 10x3/uL (130-400); RBC Distribution Width 15.3 % (11.5-14.5); Red Blood Cell (RBC) Count 2.82 mill/uL (4.70-6.10); White Blood Cell (WBC) Count 11.4 10x3/uL (4.8-10.8)
[2022-08-24 04:04] LABS: ALT (SGPT) 11 U/L (8-55); AST (SGOT) 12 U/L (5-34); Albumin 3.3 g/dL (3.4-4.8); Alkaline Phosphatase 115 U/L (40-110); Anion Gap 13 mmol/L (10-20); BUN (Urea Nitrogen) 31 mg/dL (8.4-25.7); Bilirubin, Total 0.6 mg/dL (0.2-1.2); Calc. Creatinine Clearance 51 mL/min (70-130); Calcium 9.1 mg/dL (7.8-10.44); Carbon Dioxide 33 mmol/L (23-31); Chloride 95 mmol/L (98-107); Estimated GFR 51; Globulin 3.2 g/dL (2.4-3.5); Glucose 103 mg/dL (83-110); Potassium 3.4 mmol/L (3.5-5.1); Protein, Total 6.5 g/dL (5.8-8.1); Sodium 138 mmol/L (136-145)
[2022-08-24] MEDS: Furosemide 40 MG/4 ML VIAL SLOW IVP SCH ×2 (05:48→15:56)
[2022-08-24] MEDS ORDERED: Electrolyte Replacement Protocol 1 EACH FS SCH (08:02)
[2022-08-24] MEDS ORDERED: Potassium Chloride 20 MEQ TAB PO SCH (08:15)
[2022-08-24] MEDS: NIFEdipine XL 30 MG TAB PO SCH (09:33)
[2022-08-24] MEDS: Magnesium Oxide 400 MG TAB PO SCH ×2 (09:33→20:31)
[2022-08-24] MEDS: Aspirin Chewable 81 MG TAB PO SCH (09:33)
[2022-08-24] MEDS: Carvedilol 6.25 MG TAB PO SCH ×2 (09:34→17:27)
[2022-08-24] MEDS: Apixaban 2.5 MG TAB PO SCH ×2 (09:34→20:31)
[2022-08-24] MEDS: Famotidine 20 MG TAB PO SCH ×2 (09:34→20:31)
[2022-08-24] MEDS: Empagliflozin 10 MG TAB PO SCH (09:35)
[2022-08-24] MEDS ORDERED: Ondansetron PF 4 MG/2 ML Vial IVP SCH (11:39)
[2022-08-24 14:40] LABS: Potassium 3.6 mmol/L (3.5-5.1)
[2022-08-24 15:52] LABS: Troponin I 0.035 ng/mL (< 0.028)
[2022-08-24] MEDS: Budesonide 0.5 MG/2 ML NEB NEB SCH (19:11)
[2022-08-24] MEDS: Atorvastatin Calcium 40 MG TAB PO SCH (20:31)
[2022-08-24] MEDS: Tamsulosin HCl 0.4 MG CAP PO SCH (20:31)
[2022-08-24] MEDS: Doxycycline 100 MG in Sodium Chloride 0.9% 100 ML IVPB SCH (20:31)
[2022-08-25 05:00] LABS: #Eosinphils 0.2 thou/uL (0.0-0.7); #Lymphocytes 0.6 thou/uL (1.20-3.40); #Monocytes 0.9 thou/uL (0.11-0.59); #Neutrophils 8.6 thou/uL (1.40-6.50); %Eosinophils 1.8 % (0.0-10.0); %Lymphocytes 5.5 % (21.0-51.0); %Monocytes 9.1 % (0.0-10.0); %Neutrophils 83.6 % (42.0-75.0); Hemoglobin 7.4 g/dL (14.0-18.0); Mean Corpuscular HGB CONC 30.3 g/dL (32.0-36.0); Mean Corpuscular Hemoglobin 28.1 pg (27.0-31.0); Mean Corpuscular Volume 92.8 fl (78.0-98.0); Mean Platelet Volume 7.6 fL (7.4-10.4); Platelet Count 287 10x3/uL (130-400); RBC Distribution Width 15.4 % (11.5-14.5); Red Blood Cell (RBC) Count 2.64 mill/uL (4.70-6.10); White Blood Cell (WBC) Count 10.3 10x3/uL (4.8-10.8)
[2022-08-25 05:14] LABS: ALT (SGPT) 11 U/L (8-55); AST (SGOT) 10 U/L (5-34); Albumin 3.1 g/dL (3.4-4.8); Alkaline Phosphatase 97 U/L (40-110); Anion Gap 11 mmol/L (10-20); BUN (Urea Nitrogen) 26 mg/dL (8.4-25.7); Bilirubin, Total 0.7 mg/dL (0.2-1.2); Calc. Creatinine Clearance 59 mL/min (70-130); Calcium 9.2 mg/dL (7.8-10.44); Carbon Dioxide 36 mmol/L (23-31); Chloride 97 mmol/L (98-107); Estimated GFR 61; Glucose 95 mg/dL (83-110); Magnesium 1.9 mg/dL (1.6-2.6); Phosphorus 3.7 mg/dL (2.3-4.7); Potassium 3.3 mmol/L (3.5-5.1); Protein, Total 6.1 g/dL (5.8-8.1); Sodium 141 mmol/L (136-145)
[2022-08-25] MEDS: Furosemide 40 MG/4 ML VIAL SLOW IVP SCH ×2 (06:20→15:47)
[2022-08-25] MEDS: Budesonide 0.5 MG/2 ML NEB NEB SCH ×2 (07:39→19:13)
[2022-08-25] MEDS ORDERED: Potassium Chloride 20 MEQ TAB PO SCH (08:00)
[2022-08-25] MEDS ORDERED: Magnesium 2 GM/50 ML(in water) 2 GM in Premix Bag 1 BAG IVPB SCH (08:00)
[2022-08-25] MEDS: NIFEdipine XL 30 MG TAB PO SCH (10:01)
[2022-08-25] MEDS: Famotidine 20 MG TAB PO SCH ×2 (10:01→19:46)
[2022-08-25] MEDS: Metolazone 5 MG TAB PO SCH (10:01)
[2022-08-25] MEDS: Aspirin Chewable 81 MG TAB PO SCH (10:01)
[2022-08-25] MEDS: Magnesium Oxide 400 MG TAB PO SCH ×2 (10:02→19:46)
[2022-08-25] MEDS: Spironolactone 25 MG TAB PO SCH (10:02)
[2022-08-25] MEDS: Apixaban 5 MG TAB PO SCH ×2 (10:02→19:46)
[2022-08-25] MEDS: Carvedilol 6.25 MG TAB PO SCH ×2 (10:02→17:47)
[2022-08-25] MEDS: Empagliflozin 10 MG TAB PO SCH (10:03)
[2022-08-25] MEDS: Doxycycline 100 MG in Sodium Chloride 0.9% 100 ML IVPB SCH ×2 (12:29→19:47)
[2022-08-25 14:30] LABS: Potassium 3.9 mmol/L (3.5-5.1)
[2022-08-25] MEDS: Tamsulosin HCl 0.4 MG CAP PO SCH (19:46)
[2022-08-25] MEDS: Atorvastatin Calcium 40 MG TAB PO SCH (19:47)
[2022-08-25 20:21] LABS: Hemoglobin 8.3 g/dL (14.0-18.0); Platelet Count 324 10x3/uL (130-400)
[2022-08-26 04:42] LABS: Magnesium 2.2 mg/dL (1.6-2.6)
[2022-08-26] MEDS: Furosemide 40 MG/4 ML VIAL SLOW IVP SCH (06:08)
[2022-08-26] MEDS: Budesonide 0.5 MG/2 ML NEB NEB SCH ×2 (07:35→19:09)
[2022-08-26 08:58] LABS: #Eosinphils 0.2 thou/uL (0.0-0.7); #Lymphocytes 0.7 thou/uL (1.20-3.40); #Monocytes 0.9 thou/uL (0.11-0.59); #Neutrophils 9.3 thou/uL (1.40-6.50); %Basophils 0.3 % (0.0-1.0); %Eosinophils 1.6 % (0.0-10.0); %Lymphocytes 6.1 % (21.0-51.0); %Monocytes 7.9 % (0.0-10.0); %Neutrophils 84.2 % (42.0-75.0); Hemoglobin 9.1 g/dL (14.0-18.0); Mean Corpuscular HGB CONC 30.8 g/dL (32.0-36.0); Mean Corpuscular Hemoglobin 28.3 pg (27.0-31.0); Mean Corpuscular Volume 91.9 fl (78.0-98.0); Mean Platelet Volume 7.5 fL (7.4-10.4); Platelet Count 319 10x3/uL (130-400); RBC Distribution Width 15.6 % (11.5-14.5); Red Blood Cell (RBC) Count 3.22 mill/uL (4.70-6.10); White Blood Cell (WBC) Count 11.1 10x3/uL (4.8-10.8)
[2022-08-26 09:22] LABS: ALT (SGPT) 10 U/L (8-55); AST (SGOT) 10 U/L (5-34); Albumin 3.7 g/dL (3.4-4.8); Alkaline Phosphatase 110 U/L (40-110); Anion Gap 13 mmol/L (10-20); BUN (Urea Nitrogen) 26 mg/dL (8.4-25.7); Bilirubin, Total 0.7 mg/dL (0.2-1.2); Calc. Creatinine Clearance 46 mL/min (70-130); Carbon Dioxide 36 mmol/L (23-31); Chloride 96 mmol/L (98-107); Estimated GFR 46; Globulin 3.5 g/dL (2.4-3.5); Glucose 112 mg/dL (83-110); Potassium 3.7 mmol/L (3.5-5.1); Protein, Total 7.2 g/dL (5.8-8.1); Sodium 141 mmol/L (136-145)
[2022-08-26] MEDS: HYDROcodone/Acetaminophen 5/325 mg Tablet PO PRN ×2 (09:49→20:26)
[2022-08-26] MEDS: Spironolactone 25 MG TAB PO SCH (09:50)
[2022-08-26] MEDS: Famotidine 20 MG TAB PO SCH (09:50)
[2022-08-26] MEDS: Apixaban 5 MG TAB PO SCH ×2 (09:50→20:23)
[2022-08-26] MEDS: Metolazone 5 MG TAB PO SCH (09:50)
[2022-08-26] MEDS: Empagliflozin 10 MG TAB PO SCH (09:50)
[2022-08-26] MEDS: Magnesium Oxide 400 MG TAB PO SCH ×2 (09:51→20:23)
[2022-08-26] MEDS: Aspirin Chewable 81 MG TAB PO SCH (09:51)
[2022-08-26] MEDS: Carvedilol 6.25 MG TAB PO SCH ×2 (09:51→17:10)
[2022-08-26] MEDS: Doxycycline 100 MG in Sodium Chloride 0.9% 100 ML IVPB SCH ×2 (09:52→20:25)
[2022-08-26] MEDS ORDERED: Potassium Chloride 20 MEQ TAB PO SCH (12:00)
[2022-08-26] MEDS ORDERED: Potassium Bicarbonate/Cit Ac 20 MEQ TAB PO SCH (14:15)
[2022-08-26 15:30] LABS: Bacteria/HPF None Seen HPF (None Seen); Bilirubin Negative (Negative); Blood, Urine Negative (Negative); Clarity Clear (Clear); Glucose, Urine (Dipstick) 300 mg/dL (Negative); Ketone, Urine Negative (Negative); Leukocyte Negative Leu/uL (Negative); Nitrite Negative (Negative); Protein, Urine (Dipstick) Negative (Neg-Trace); RBC/HPF 0-3 HPF (0-3); Specific Gravity, Urine 1.009 (1.002-1.036); Squamous Epithelial None Seen HPF (0-3); Urobilinogen Normal mg/dL (Less than 2); WBC/HPF 0-3 HPF (0-3); pH, Urine 6.5 (5.0-9.0)
[2022-08-26 15:48] LABS: Creatinine, Urine 44.65 mg/dL (63-166); Protein, Urine Random Quant Less than 10 mg/dL (1-14); Urea Nitrogen, Random Urine 233 mg/dl
[2022-08-26] MEDS: Atorvastatin Calcium 40 MG TAB PO SCH (20:23)
[2022-08-26] MEDS: Tamsulosin HCl 0.4 MG CAP PO SCH (20:24)
[2022-08-26] MEDS: DOBUTamine 500 mg/250 ml 500 MG in Premix Bag 1 BAG IVPB SCH (23:30)
[2022-08-27 04:39] LABS: #Eosinphils 0.3 thou/uL (0.0-0.7); #Lymphocytes 0.7 thou/uL (1.20-3.40); #Monocytes 1.1 thou/uL (0.11-0.59); #Neutrophils 7.6 thou/uL (1.40-6.50); %Eosinophils 2.7 % (0.0-10.0); %Lymphocytes 7.3 % (21.0-51.0); %Monocytes 11.3 % (0.0-10.0); %Neutrophils 78.8 % (42.0-75.0); Hemoglobin 7.7 g/dL (14.0-18.0); Mean Corpuscular HGB CONC 30.7 g/dL (32.0-36.0); Mean Corpuscular Hemoglobin 28.5 pg (27.0-31.0); Mean Corpuscular Volume 92.9 fl (78.0-98.0); Mean Platelet Volume 7.5 fL (7.4-10.4); Platelet Count 267 10x3/uL (130-400); RBC Distribution Width 15.5 % (11.5-14.5); White Blood Cell (WBC) Count 9.6 10x3/uL (4.8-10.8)
[2022-08-27 05:04] LABS: ALT (SGPT) 9 U/L (8-55); AST (SGOT) 10 U/L (5-34); Albumin 3.2 g/dL (3.4-4.8); Alkaline Phosphatase 94 U/L (40-110); Anion Gap 13 mmol/L (10-20); BUN (Urea Nitrogen) 30 mg/dL (8.4-25.7); Bilirubin, Total 0.7 mg/dL (0.2-1.2); Calc. Creatinine Clearance 47 mL/min (70-130); Calcium 8.9 mg/dL (7.8-10.44); Carbon Dioxide 36 mmol/L (23-31); Chloride 94 mmol/L (98-107); Estimated GFR 47; Globulin 2.6 g/dL (2.4-3.5); Glucose 96 mg/dL (83-110); Magnesium 2.2 mg/dL (1.6-2.6); Potassium 3.8 mmol/L (3.5-5.1); Protein, Total 5.8 g/dL (5.8-8.1); Sodium 139 mmol/L (136-145)
[2022-08-27 05:11] LABS: Phosphorus 3.7 mg/dL (2.3-4.7)
[2022-08-27] MEDS: Budesonide 0.5 MG/2 ML NEB NEB SCH ×3 (07:35→21:41)
[2022-08-27] MEDS ORDERED: Lidocaine 1% (PF) 30 ML VIAL ONE (08:18)
[2022-08-27] MEDS: Aspirin Chewable 81 MG TAB PO SCH (10:34)
[2022-08-27] MEDS: Potassium Chloride 10 MEQ TAB PO SCH (10:34)
[2022-08-27] MEDS: Spironolactone 25 MG TAB PO SCH (10:34)
[2022-08-27] MEDS: Famotidine 20 MG TAB PO SCH (10:34)
[2022-08-27] MEDS: Magnesium Oxide 400 MG TAB PO SCH ×2 (10:34→21:12)
[2022-08-27] MEDS: Doxycycline 100 MG in Sodium Chloride 0.9% 100 ML IVPB SCH ×2 (10:34→21:12)
[2022-08-27] MEDS: Carvedilol 6.25 MG TAB PO SCH ×2 (10:34→21:13)
[2022-08-27] MEDS: Empagliflozin 10 MG TAB PO SCH (10:35)
[2022-08-27] MEDS: Apixaban 5 MG TAB PO SCH ×2 (10:35→21:18)
[2022-08-27 11:59] LABS: Hemoglobin 8.4 g/dL (14.0-18.0)
[2022-08-27 12:25] LABS: Iron 29 ug/dL (65-175); Iron Binding Capacity, Total 254 mcg/dL (261-462)
[2022-08-27 14:44] LABS: Fluid, pH - Pleural Fld Greater than 7.50 (7.60 - 7.66)
[2022-08-27 14:59] LABS: Fluid, Triglycerides Less than 11 mg/dL (Not Available); Pleural Fluid, Amylase 46 U/L (Not Available); Pleural Fluid, Glucose 106 mg/dL; Pleural Fluid, LDH 109 U/L (Not Available); Pleural Fluid, Protein 2.4 g/dL
[2022-08-27 15:06] LABS: RBC Count-Automated (BF) 5937 /cu.mm; WBC/Nucleated-Auto (BF) 196 /cu.mm
[2022-08-27 15:38] LABS: BF Color Red; Body Fluid Source Thoracentesis Fluid; Clarity Hazy (Clear); Tube # SYRINGE
[2022-08-27 15:39] LABS: BF Segmented Neutrophils 23 %; Cell Count Non Hematic 65 %; Lymphocytes 12 %
[2022-08-27 19:00] LABS: #Eosinphils 0.1 thou/uL (0.0-0.7); #Lymphocytes 0.6 thou/uL (1.20-3.40); #Monocytes 1.2 thou/uL (0.11-0.59); #Neutrophils 17.4 thou/uL (1.40-6.50); %Eosinophils 0.4 % (0.0-10.0); %Lymphocytes 3.2 % (21.0-51.0); %Monocytes 6.3 % (0.0-10.0); %Neutrophils 90.1 % (42.0-75.0); Hemoglobin 8.4 g/dL (14.0-18.0); Mean Corpuscular Hemoglobin 28.6 pg (27.0-31.0); Mean Corpuscular Volume 92.2 fl (78.0-98.0); Mean Platelet Volume 7.5 fL (7.4-10.4); Platelet Count 286 10x3/uL (130-400); RBC Distribution Width 15.5 % (11.5-14.5); Red Blood Cell (RBC) Count 2.95 mill/uL (4.70-6.10); White Blood Cell (WBC) Count 19.3 10x3/uL (4.8-10.8)
[2022-08-27 21:00] LABS: Hemoglobin 8.3 g/dL (14.0-18.0)
[2022-08-27] MEDS: HYDROcodone/Acetaminophen 5/325 mg Tablet PO PRN (21:13)
[2022-08-27] MEDS: Atorvastatin Calcium 40 MG TAB PO SCH (21:13)
[2022-08-28 04:45] LABS: #Eosinphils 0.1 thou/uL (0.0-0.7); #Neutrophils 10.7 thou/uL (1.40-6.50); %Basophils 0.1 % (0.0-1.0); %Eosinophils 0.5 % (0.0-10.0); %Lymphocytes 7.8 % (21.0-51.0); %Monocytes 7.9 % (0.0-10.0); %Neutrophils 83.7 % (42.0-75.0); Hemoglobin 7.4 g/dL (14.0-18.0); Mean Corpuscular HGB CONC 30.3 g/dL (32.0-36.0); Mean Corpuscular Hemoglobin 28.3 pg (27.0-31.0); Mean Corpuscular Volume 93.4 fl (78.0-98.0); Mean Platelet Volume 7.7 fL (7.4-10.4); Platelet Count 262 10x3/uL (130-400); RBC Distribution Width 15.5 % (11.5-14.5); Red Blood Cell (RBC) Count 2.61 mill/uL (4.70-6.10); White Blood Cell (WBC) Count 12.7 10x3/uL (4.8-10.8)
[2022-08-28 05:10] LABS: Anion Gap 14 mmol/L (10-20); BUN (Urea Nitrogen) 27 mg/dL (8.4-25.7); Calc. Creatinine Clearance 52 mL/min (70-130); Calcium 8.9 mg/dL (7.8-10.44); Carbon Dioxide 33 mmol/L (23-31); Chloride 96 mmol/L (98-107); Estimated GFR 51; Glucose 99 mg/dL (83-110); Magnesium 2.2 mg/dL (1.6-2.6); Sodium 139 mmol/L (136-145)
[2022-08-28] MEDS: Budesonide 0.5 MG/2 ML NEB NEB SCH ×2 (07:20→18:13)
[2022-08-28] MEDS: Iron, Sodium Ferric Gluconate 250 MG in Sodium Chloride 0.9% 250 ML 250 ML IVPB SCH (08:26)
[2022-08-28] MEDS ORDERED: Epoetin (ESRD) 10,000 UNITS/ML VIAL SC SCH (09:00)
[2022-08-28] MEDS: Famotidine 20 MG TAB PO SCH (11:37)
[2022-08-28] MEDS: Doxycycline 100 MG in Sodium Chloride 0.9% 100 ML IVPB SCH ×2 (11:37→20:33)
[2022-08-28] MEDS: Spironolactone 25 MG TAB PO SCH (11:37)
[2022-08-28] MEDS: Potassium Chloride 10 MEQ TAB PO SCH (11:37)
[2022-08-28] MEDS: Empagliflozin 10 MG TAB PO SCH (11:37)
[2022-08-28] MEDS: Magnesium Oxide 400 MG TAB PO SCH ×2 (11:38→20:33)
[2022-08-28] MEDS ORDERED: Albumin 25% 25 GM/100 ML BOT IVPB SCH (11:45)
[2022-08-28] MEDS: HYDROcodone/Acetaminophen 5/325 mg Tablet PO PRN (14:45)
[2022-08-28] MEDS: DOBUTamine 500 mg/250 ml 500 MG in Premix Bag 1 BAG IVPB SCH (14:45)
[2022-08-28] MEDS: Furosemide 20 MG/2 ML VIAL SLOW IVP SCH ×2 (14:45→23:27)
[2022-08-28 17:05] LABS: #Eosinphils 0.1 thou/uL (0.0-0.7); #Lymphocytes 0.9 thou/uL (1.20-3.40); #Neutrophils 9.1 thou/uL (1.40-6.50); %Basophils 0.3 % (0.0-1.0); %Eosinophils 0.6 % (0.0-10.0); %Lymphocytes 7.7 % (21.0-51.0); %Monocytes 9.3 % (0.0-10.0); %Neutrophils 82.1 % (42.0-75.0); Hemoglobin 7.3 g/dL (14.0-18.0); Mean Corpuscular HGB CONC 31.4 g/dL (32.0-36.0); Mean Corpuscular Hemoglobin 29.1 pg (27.0-31.0); Mean Corpuscular Volume 92.8 fl (78.0-98.0); Mean Platelet Volume 7.5 fL (7.4-10.4); Platelet Count 207 10x3/uL (130-400); RBC Distribution Width 15.3 % (11.5-14.5); Red Blood Cell (RBC) Count 2.49 mill/uL (4.70-6.10); White Blood Cell (WBC) Count 11.1 10x3/uL (4.8-10.8)
[2022-08-28] MEDS: Atorvastatin Calcium 40 MG TAB PO SCH (20:33)
[2022-08-28] MEDS: Albumin 25% 25 GM/100 ML BOT IVPB SCH (21:37)
[2022-08-29 05:28] LABS: Anion Gap 12 mmol/L (10-20); BUN (Urea Nitrogen) 25 mg/dL (8.4-25.7); Calc. Creatinine Clearance 45 mL/min (70-130); Calcium 8.9 mg/dL (7.8-10.44); Carbon Dioxide 32 mmol/L (23-31); Chloride 98 mmol/L (98-107); Estimated GFR 47; Glucose 96 mg/dL (83-110); Magnesium 2.1 mg/dL (1.6-2.6); Potassium 3.4 mmol/L (3.5-5.1); Sodium 139 mmol/L (136-145)
[2022-08-29] MEDS: Furosemide 20 MG/2 ML VIAL SLOW IVP SCH (05:53)
[2022-08-29 06:26] LABS: Band 5 % (5-11); Eosinophils 2 % (0-10); Hemoglobin 8.3 g/dL (14.0-18.0); Lymphocytes 8 % (21-51); MDiff Complete? YES; Mean Corpuscular HGB CONC 31.6 g/dL (32.0-36.0); Mean Corpuscular Volume 91.8 fl (78.0-98.0); Monocytes 11 % (0-10); Neutrophil 74 % (42-75); Platelet Count 202 10x3/uL (130-400); Red Blood Cell (RBC) Count 2.85 mill/uL (4.70-6.10); White Blood Cell (WBC) Count 11.4 10x3/uL (4.8-10.8)
[2022-08-29] MEDS ORDERED: Potassium Chloride 20 MEQ TAB PO SCH ×2 (06:45→08:00)
[2022-08-29] MEDS: Budesonide 0.5 MG/2 ML NEB NEB SCH ×2 (07:23→18:48)
[2022-08-29] MEDS: Empagliflozin 10 MG TAB PO SCH (09:13)
[2022-08-29] MEDS: Famotidine 20 MG TAB PO SCH (09:13)
[2022-08-29] MEDS: Spironolactone 25 MG TAB PO SCH (09:13)
[2022-08-29] MEDS: Magnesium Oxide 400 MG TAB PO SCH (09:13)
[2022-08-29] MEDS: Doxycycline 100 MG in Sodium Chloride 0.9% 100 ML IVPB SCH (09:14)
[2022-08-29] MEDS: Potassium Chloride 10 MEQ TAB PO SCH (09:14)
[2022-08-29] MEDS: Albumin 25% 25 GM/100 ML BOT IVPB SCH (09:15)
[2022-08-29] MEDS ORDERED: Milrinone Lactate/D5W 20 MG in Premix Bag 1 BAG IV SCH (09:30)
[2022-08-29] MEDS: HYDROcodone/Acetaminophen 5/325 mg Tablet PO PRN (11:20)
[2022-08-29] MEDS: Iron, Sodium Ferric Gluconate 250 MG in Sodium Chloride 0.9% 250 ML 250 ML IVPB SCH (12:34)
[2022-08-29] MEDS: DOBUTamine 500 mg/250 ml 500 MG in Premix Bag 1 BAG IVPB SCH (13:10)
[2022-08-29] MEDS ORDERED: Fluticasone Propionate Nasal Spray 16 gm Bottle NASAL SCH (13:45)
[2022-08-29 17:02] VITALS: BP 127/59; TEMP 97.3
[2022-08-30] MEDS ORDERED: Fluticasone Propionate Nasal Spray 16 gm Bottle NASAL SCH (09:00)
== END 2022-08-29 19:45 | disposition short-term general hospital (02) | DRG 291 ==
LOC: ERS 09:54 → 2NO 13:34
PROVIDERS: ADMIT Internal Medicine; ATTEND Internal Medicine
PROC: 3E033XZ Introduction of Vasopressor into Peripheral Vein, Percutaneous Approach (ICD-10-PCS; 2022-08-26)
PROC: 0W9B3ZZ Drainage of Left Pleural Cavity, Percutaneous Approach (ICD-10-PCS; principal; 2022-08-27)
PROC: 30233N1 Transfusion of Nonautologous Red Blood Cells into Peripheral Vein, Percutaneous Approach (ICD-10-PCS; 2022-08-28)
DX: I50.33 Acute on chronic diastolic (congestive) heart failure (principal); Z20.822 Contact with and (suspected) exposure to COVID-19; J96.21 Acute and chronic respiratory failure with hypoxia; N17.9 Acute kidney failure, unspecified; I48.21 Permanent atrial fibrillation; J91.8 Pleural effusion in other conditions classified elsewhere; I47.20 Ventricular tachycardia, unspecified; L76.22 Postprocedural hemorrhage of skin and subcutaneous tissue following other procedure; I25.10 Atherosclerotic heart disease of native coronary artery without angina pectoris; N40.0 Benign prostatic hyperplasia without lower urinary tract symptoms; J44.9 Chronic obstructive pulmonary disease, unspecified; N18.30 Chronic kidney disease, stage 3 unspecified; R77.8 Other specified abnormalities of plasma proteins; E78.5 Hyperlipidemia, unspecified; I12.9 Hypertensive chronic kidney disease with stage 1 through stage 4 chronic kidney disease, or unspecified chronic kidney disease; D63.1 Anemia in chronic kidney disease; I49.5 Sick sinus syndrome; Y84.9 Medical procedure, unspecified as the cause of abnormal reaction of the patient, or of later complication, without mention of misadventure at the time of the procedure; Z86.73 Personal history of transient ischemic attack (TIA), and cerebral infarction without residual deficits; Z88.2 Allergy status to sulfonamides; Z95.2 Presence of prosthetic heart valve; Z95.1 Presence of aortocoronary bypass graft; Z87.891 Personal history of nicotine dependence; Z83.3 Family history of diabetes mellitus; Z79.899 Other long term (current) drug therapy; Z79.82 Long term (current) use of aspirin; Z79.01 Long term (current) use of anticoagulants; Z90.49 Acquired absence of other specified parts of digestive tract; Z95.0 Presence of cardiac pacemaker
CPT/HCPCS: 36415; 36430; 71045; 71046; 71250; 76705; 78451; 80048; 80053; 81001; 82150; 82550; 82553; 82570; 82728; 82945; 83540; 83550; 83615; 83735; 83880; 83986; 84100; 84145; 84156; 84157; 84478; 84484; 84540; 85014; 85018; 85025; 85049; 85060; 85610; 85730; 86850; 86900; 86901; 87040; 87070; 87116; 87205; 87206; 88112; 88305; 89051; 93005; 93306; 93798; 94640; 96374; A9540; J1250; J1642; J1644; J1940; J2260; J2916; J3475; J3490; J7050; J7620; J7626; P9016; P9047; Q4081; U0003; U0005